=== PATIENT | female | born 1950 | race Caucasian/White ===

== ENCOUNTER 2017-03-31 10:27 | Emergency (ER) | payer MEDICARE, OTHER ==
--- NOTE | 2017-03-31 10:46 | ED Physician Documentation ---
PD HPI LOWER EXT INJURY - Stated complaint Stated Complaint: L KNEE INJURY - Chief complaint Chief Complaint: Ext Problem - History obtained from History obtained from: Patient - History of Present Illness PD HPI LOW EXT INJURY LOCATION: Left, Knee Type of injury: Fall (she says she tripped and fell onto knee with large swelling developed.) Timing - onset: Yesterday Timing - details: Gradual onset (the degree of swelling developed overnight), Still present Improved by: Rest Worsened by: Moving, Palpating, Other (straightening her leg) Associated symptoms: Swelling. No: Weakness, Numbness Similar symptoms before: Has not had sx before Recently seen: Not recently seen Review of Systems Skin: denies: Abrasion (s), Laceration (s) Neurologic: denies: Focal weakness, Numbness PD PAST MEDICAL HISTORY - Past Medical History Past Medical History: Yes Respiratory: COPD Endocrine/Autoimmune: Type 2 diabetes Musculoskeletal: Fibromyalgia Other Past Medical History: Pancreatic CA with Mets. 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 HEENT: Cataracts - Present Medications Home Medications: Ambulatory Orders Medication Instructions Recorded Confirmed Albuterol Sulf [Ventolin Hfa 1 - 2 puffs INH Q4HR PRN 03/31/17 03/31/17 Inhaler] Albuterol Sulfate [Proair Hfa 1 - 2 puffs INH Q4H PRN 03/31/17 03/31/17 Inhaler] Celecoxib 200 mg PO 03/31/17 Citalopram Hydrobromide 03/31/17 [Citalopram HBr] Clonazepam 2 mg PO 03/31/17 Insulin Degludec [Tresiba 35 unit SQ 03/31/17 Flextouch U-100] Insulin Lispro [HumaLOG] 100 unit SUBQ 03/31/17 03/31/17 Levothyroxine [Synthroid] 125 mcg PO QDAC 03/31/17 03/31/17 Oxybutynin [Ditropan] 5 mg PO TID 03/31/17 03/31/17 Rivaroxaban [Xarelto] 20 mg PO DAILY 03/31/17 03/31/17 Zolpidem [Ambien] 5 mg PO DAILY PRN 03/31/17 03/31/17 metFORMIN [Glucophage] 1,000 mg PO BIDWM 03/31/17 03/31/17 oxyCODONE [Roxicodone] 5 mg PO Q4-6H 03/31/17 03/31/17 oxyCODONE [Roxicodone] 5 mg PO Q4-6H #25 tablet 03/31/17 - Allergies Allergies/Adverse Reactions: Allergies Allergy/AdvReac Type Severity Reaction Status Date / Time Sulfa (Sulfonamide Allergy Unknown Verified 03/31/17 10:48 Antibiotics) - Social History Does the pt smoke?: No Smoking Status: Never smoker Does the pt drink ETOH?: No Does the pt have substance abuse?: No PD ED PE NORMAL - Vitals Vital signs reviewed: Yes - General General: Alert and oriented X 3, No acute distress, Well developed/nourished - Derm Derm: Normal color, Warm and dry - Extremities Extremities: No calf tenderness / cord, Other (left knee with tense swelling prepatellar area and feels like some in joint as well with purple color c/w hematoma. ). No: Normal ROM s pain - Neuro Neuro: No motor deficit, No sensory deficit Results - Vitals Vitals: Oxygen O2 Source Room air - Rads (name of study) left knee Radiology: Prelim report reviewed (no fractures, large prepatellar fluid) PD MEDICAL DECISION MAKING - ED course Complexity details: considered differential (large hematoma in bursa/joint with pain on ROM. Discussed typical course of not draining now but could potentially in a week or so if not decreased once risk of persistent bleeding is less. ), d/ w patient Departure - Departure Disposition: 01 Home, Self Care Clinical Impression: Knee hemarthrosis, left Accidental fall Qualifiers: Encounter type: initial encounter Qualified Code(s): W19.XXXA - Unspecified fall, initial encounter Knee contusion Qualifiers: Encounter type: initial encounter Laterality: left Qualified Code(s): S80.02XA - Contusion of left knee, initial encounter Condition: Stable Record reviewed to determine appropriate education?: Yes Instructions: ED Effusion Knee Follow-Up: [facility] [Provider Group] Prescriptions: oxyCODONE [Roxicodone] 5 mg PO Q4-6H #25 tablet Comments: Pollo wrap and some warm towels to the knee periodically to help absorb the blood in the joint. Activity as able. Use cane or walker to support your gait. Continue usual pain medications as needed. Follow-up with your primary care or with orthopedics if the swelling has not decreased significantly over the next 4 -5 days. Discharge Date/Time: 03/31/17 12:51
[2017-03-31] MEDS ORDERED: oxyCODONE 5 MG TABLET PO STA (11:04)
[2017-03-31] MEDS ORDERED: oxyCODONE 5 MG TABLET ONE (11:12)
[2017-03-31 12:35] VITALS: BP 135/72
--- NOTE | 2017-03-31 12:35 | XRAY Preliminary Report ---
Exam: XR KNEE 3 VIEW LT IMPRESSION: 1. Prepatellar soft tissue swelling or possibly hematoma. 2. The bones appear intact. [facility] SITE ID: [id number]
--- NOTE | 2017-03-31 12:37 | XRAY Report ---
EXAM: LEFT KNEE RADIOGRAPHY EXAM DATE: 03/31/2017 11:55 AM. CLINICAL HISTORY: Fell onto knee last night. COMPARISON: None. TECHNIQUE: 3 views. FINDINGS: Bones: Normal. No fractures or bone lesions. Joints: Normal. No effusion. No subluxations. Soft Tissues: There is prepatellar soft tissue swelling. IMPRESSION: 1. Prepatellar soft tissue swelling or possibly hematoma. 2. The bones appear intact. [facility] Referring Provider Line: [phone] SITE ID: [id number]
== END 2017-03-31 12:51 | disposition home or self-care (01) ==
LOC: ED 10:27
DX: S80.02XA Contusion of left knee, initial encounter (principal); S89.82XA Other specified injuries of left lower leg, initial encounter; W01.0XXA Fall on same level from slipping, tripping and stumbling without subsequent striking against object, initial encounter; J44.9 Chronic obstructive pulmonary disease, unspecified; E11.9 Type 2 diabetes mellitus without complications; Z79.4 Long term (current) use of insulin; M79.7 Fibromyalgia; Z85.07 Personal history of malignant neoplasm of pancreas; Z86.718 Personal history of other venous thrombosis and embolism; Z79.01 Long term (current) use of anticoagulants
CPT/HCPCS: 73562; 99283; A9270

== ENCOUNTER 2017-04-13 09:01 | Outpatient (CLI) | payer MEDICARE, OTHER ==
--- NOTE | 2017-04-13 19:55 | CONSULTATION NOTE ---
Palliative Care Consultation - Referral Referring Provider: Dr. 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 She was originally diagnosed in 12-27-2016 with a confirmed biopsy of the liver. She has had 4 cycles of palliative chemotherapy with gemcitabine and on Abraxane. She has had resulting in hospitalizations for cytopenias and neutropenic infection. She and her sister, Sneha, have relocated here from [place], this is been very stressful and concerning. Patient has continued to have weight loss, alteration in her mental status which she attributes "to chemo brain" though I suspect we need to explore this further, she has had changes in her equilibrium with frequent falls, and an ED visit for a fall and a trauma injury to her left knee. I find her today very anxious, she had had a very bad night she was very anxious about her pending visit, she had been increasingly confused per her sister wanting to leave in the middle the night, today she presents oriented 3 though has short-term memory issues. They do have many financial stressors and feeling overwhelmed by this transition. She has had increased incontinence and unable to control her bladder more so in the last 24-48 hrs. And though recognizes the seriousness of her illness, is quite concerned about her continued decline and facing her mortality. Medical/Surgical History - Past Medical History Cardiovascular: reports: Hypertension, Other (hx DVT on xarelto) Respiratory: reports: Asthma, COPD Neuro: reports: Peripheral neuropathy, Tremors, Other Endocrine/Autoimmune: reports: Type 2 diabetes GI: reports: None. 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 In the context of patient's decline, needing increased support, they decided to have her relocate as well. They have made arrangements for her to have a small room, original plan was she would live independently with sisters support. So far patient has had needed oversight and supervision particularly related to her falls and on altered mental status. Family History - Family History Family History: Mother: , [place], Father: , Cancer Medications/Allergies - Medications Home Medications: Ambulatory Orders Medication Instructions Recorded Confirmed Celecoxib 200 mg PO DAILY 03/31/17 04/16/17 Citalopram Hydrobromide 40 mg PO DAILY 03/31/17 04/16/17 [Citalopram HBr] Insulin Degludec [Tresiba 35 unit SQ DAILY 03/31/17 04/16/17 Flextouch U-100] Insulin Lispro [HumaLOG] 100 unit SUBQ PRN PRN 03/31/17 04/16/17 Levothyroxine [Synthroid] 125 mcg PO QDAC 03/31/17 04/16/17 Rivaroxaban [Xarelto] 20 mg PO DAILY 03/31/17 04/16/17 Zolpidem [Ambien] 5 mg PO DAILY PRN 03/31/17 04/16/17 clonazePAM [Clonazepam] 1 mg PO BID 03/31/17 04/16/17 metFORMIN [Glucophage] 1,000 mg PO BIDWM 03/31/17 04/16/17 Albuterol Sulfate [Proair Hfa 1 - 2 puffs INH PRN PRN 04/09/17 04/16/17 Inhaler] Multivitamin [Multiple Vitamins] 1 tab PO DAILY 04/09/17 04/16/17 Ondansetron [Zofran Odt] 8 mg PO TID PRN 04/16/17 04/16/17 oxyCODONE [Roxicodone] 5 mg PO Q3HR PRN 04/16/17 04/16/17 - Allergies Allergies/Adverse Reactions: Allergies Allergy/AdvReac Type Severity Reaction Status Date / Time Sulfa (Sulfonamide Allergy Unknown Verified 04/16/17 10:41 Antibiotics) Review of Systems - Constitutional Constitutional: reports: Fatigue, Weakness - Eyes Eyes: reports: Vision loss - Ears, Nose & Throat Ears, Nose & Throat: reports: Hearing loss, Postnasal drainage, Dry mouth - Cardiovascular Cardiovascular: reports: Lightheadedness, Decr. exercise tolerance - Respiratory Respiratory: reports: SOB at rest, SOB with exertion - Gastrointestinal Gastrointestinal: reports: Constipation, Nausea, Poor appetite, Early satiety, Other (they are eating out as do not have a way for meal prep; very costly and not nutritious) - Genitourinary Genitourinary: reports: Frequency, Incontinence (increased over last 24 hours, confusion included.) - Musculoskeletal Musculoskeletal: reports: Stiffness, Muscle weakness, Joint swelling (left knee with hematoma from fall) - Integumentary Integumentary: reports: Dryness, Hair changes (alopecia) - Neurological Neurological: reports: General weakness, Dizziness, Memory problems, Abnormal gait, Slurred speech, Other (tremors) - Psychiatric Psychiatric: reports: Depression, Anxiety - Endocrine Endocrine: reports: Diabetes type 2, Hypothyroidism, Intolerance to cold ( finding northwest weather difficult to tolerate) - Hematologic/Lymphatic Hematologic/Lymphatic: reports: Blood clots, Recurrent infections (has been hospitalized several times in [place]) - All Other Systems All Other Systems: reports: Reviewed and negative Physical Exam - Vital Signs Pulse Rate: 82 Respiratory Rate: 18 O2 Saturation: 99 (ra @ rest) Blood Pressure: 126/67 - Physical Exam General Appearance: positive: Mild distress, Anxious Eyes Bilateral: positive: Conjunctivae nml, No scleral icterus ENT: positive: Dry mucous membranes. negative: Oral lesions Neck: positive: No JVD, Trachea midline. negative: Lymphadenopathy (R), Lymphadenopathy (L) Cardiovascular: positive: Regular rate & rhythm Respiratory: positive: Diminished throughout. negative: Wheezes, Rales Abdomen: positive: Soft, Nml bowel sounds Skin: positive: Pallor, Dryness, Wound (left forearm skin tear, shallow no s/s of infection; l) Extremities: positive: Joint swelling (left knee with large hematoma/swelling tender not red or inflammed at this time able to bear weight has not worsened) Neurologic/Psychiatric: positive: Oriented x3 (though with STM issues), Depressed mood/affect, Other (very anxious) Palliative Care - POLST Patient has POLST: Yes POLST Status: DNR, Limited Interventions Pain: Pain worsening, Location (residual pain from fall on left knee; baseline pain and discomfort from peripheral neuropathy; pain from pancreatic cancer "like a hole" radiates round back and up ;left side; oxycodone 1-2 tabs a day does help when takes it but afraid of "pain meds") Tiredness/Fatigue: Moderate (4-6) Drowsiness/Sedation: Mild (1-3) Nausea: Mild (1-3) Depression: Moderate (4-6) Anxiety: Moderate (4-6) Anorexia: Mild (1-3) Sleep: Sleeps poorly Constipation: Yes, Intermittent constipation Feelings of wellbeing/Perceived Quality of Life: Poor, Worsening Performance Status: She has noted increase in lower extremity weakness, concerned about equilibrium in the last 3-4 weeks, this is like to several falls. She has been titrating back her clonazepam, is off her gabapentin, and no further alprazolam. When turns to the right or to the left quickly she does lose balance, she is unable to stand on one leg, she closes her eyes she does have some sway. She can ambulate short distances but is limited by fatigue at this point in time. She has difficulty navigating steps. I would put her at a palliative care performance status at 60%. - Palliative Care Discussion: In reviewing patient's decline and experience with her pancreatic cancer over the last several months, she is feeling quite overwhelmed. She does understand this is a life limiting illness but is hopeful for improved quality as well as some quantity of life. They do have a mother who was on a ventilator for extended period of time, thus very anxious to make sure they have their directives in place for Fatimah. We did complete the POLST with her goals for focus on quality of life treating reversible conditions and end-of-life a comfortable respectful . She selected DNAR/Limited Intervention; Antibiotics if life could be prolonged; and no medical nutrition. Am concerned about a long-term plan regarding this at that point in time. She has designated her sister Cheli Hlom [phone] as her DURABLE POWER OF SHOE PARTS CASER for medical decision-making. I did provide the form for her to complete , will have a notary at 1 of her next visits help complete (she has 4 other brothers all estranged; 5 total as one has passed). Her sister is overwhelmed as far as concern regarding patient's independence, lack of insight at times of her limitations, and her continued wished to drive. I did beauty counselor that for at least the next 2 weeks until we come to some understanding of her cognitive issues she is not to drive. It does sound quite complicated as far as her medication regimen on changes over the last several months. Her sister is overseeing this at this point in time, they cannot identify any other resources given the recent relocation. Results - Lab Results Lab results reviewed: Yes Impression and Recommendations - Palliative Care Impression: This is a 67-year-old woman with pancreatic cancer with metastatic disease to lymph nodes, liver, lung. She does present with altered mental status and cognitive changes, that are impacting her safety and ability to be independent. She has had increased incontinence last 24-48 hours, will follow up and rule out infection. She is quite anxious regarding her serious illness and concerned about her impending decline, her current social situation also adds to both financial stressors and psychological distress as well. Recommendations/Counseling Done: 1. Incontinence, did have patient provide UA. Initial results were positive did start her on nitrofurantoin 100 mg extended release twice daily pending C&S results. 2. Pain of neoplastic origin. Patient does have 4 out of 10 pain with severe discomfort has been hesitant to use oxycodone for relief. Counseling done regarding use of opioids, safety and storage, encouraged to use more often particularly when escalating up to 5-6/10. Number 3. Cognitive deficits, did do a MMSE scored 26/30. It has been fluctuating up and down, with episodes of short-term memory issues, confusion, and paranoia. Her original staging exam did have suspicion for possible metastatic disease, and follow-up head ruled out. But with increasing neuro deficits, equilibrium changes, fluctuating mental alertness am concerned may need follow-up. She has also had multiple falls and on blood thinner. 4. Anxiety. She has been titrated down off her benzodiazepines, she is currently at clonazepam 1 mg twice daily. She does have underlying anxiety disorder, she has not noticed any increased distress related to this most of her distress is "existential" regarding her impending decline. She is anxious to understand what to expect in the near future, given the length of our current visit will need to revisit this later. But did discuss some about this and her wishes for the POLST. Will also have Medical Palliative Care [place] address some of the financial issues, will need [employer] application and plan for housing. 5. Advanced care planning. She does want her sister Cheli Holm to be her DPOA for health care. We did discuss the continuum of care given the seriousness of her illness, including at some point hospice support. She does want to stay here in [place], there are no other family members or support she would want to return back to [place] 4. We did complete the POLST, and provided anticipatory guidance in the context of this. We will continue this conversation our next visit. Time Spent: 75 minutes with greater than 50% of this done in counseling regarding pain and symptom management anticipatory guidance advanced care planning and coordination of care with obtaining UA specimen. Refills were provided for Xarelto, oxycodone, and prescription for antiemetic ondansetron.
== END 2017-04-13 09:02 | disposition home or self-care (01) ==
LOC: PC 09:01
PROVIDERS: ATTEND Nurse Practitioner Adult Health
DX: Z51.5 Encounter for palliative care (principal); R32 Unspecified urinary incontinence; G89.3 Neoplasm related pain (acute) (chronic); R41.89 Other symptoms and signs involving cognitive functions and awareness; R41.82 Altered mental status, unspecified; F41.9 Anxiety disorder, unspecified; C25.9 Malignant neoplasm of pancreas, unspecified; C77.9 Secondary and unspecified malignant neoplasm of lymph node, unspecified; C78.7 Secondary malignant neoplasm of liver and intrahepatic bile duct; C78.00 Secondary malignant neoplasm of unspecified lung; Z91.81 History of falling; Z63.79 Other stressful life events affecting family and household; I10 Essential (primary) hypertension; Z86.718 Personal history of other venous thrombosis and embolism; Z79.01 Long term (current) use of anticoagulants; E11.42 Type 2 diabetes mellitus with diabetic polyneuropathy; Z87.891 Personal history of nicotine dependence; Z79.4 Long term (current) use of insulin; Z79.84 Long term (current) use of oral hypoglycemic drugs; S80.02XD Contusion of left knee, subsequent encounter; S51.812D Laceration without foreign body of left forearm, subsequent encounter; Z66 Do not resuscitate; Z79.891 Long term (current) use of opiate analgesic; Z79.899 Other long term (current) drug therapy
CPT/HCPCS: 99205

== ENCOUNTER 2017-04-16 10:44 | Outpatient (CLI) | payer MEDICARE, OTHER ==
--- NOTE | 2017-04-16 19:50 | CONSULTATION NOTE ---
Palliative Care Follow Up - Referral Referring Provider: Dr. Truong Time of Visit: 1045-11:15 Referral setting: [facility] Referral Reason: Pain of neoplastic origin - Information Sources Records reviewed: Previous records reviewed History/Review of Systems obtained from: Patient, Family (sister Sneha) Exam limitations: Clinical condition (patient sent to ED from [facility]/follow up done as awaited appointment with ED MD) - History of Present Illness Update Brief HPI Update: Please see 04-13-2017 HPI for more complete history.Patient had fluctuating status again over the weekend, with increased weakness and a recurrent fall. She does report, confirmed by her sister, she did have another fall but actually hit the back of her head. Her sister states she refused to come up for ED evaluation. She has had intermittent headaches, in addition to her baseline confusion. She did try the nitrofurantoin, without any improvement in her incontinence, her final C&S came back with less than 10,000 colonies. She has not noticed any improvement in symptoms. She ended up over in the ED for evaluation of her left knee swelling. On exam does not appear to have changed from Sunday, it is tender but able to weight-bear, no redness or warmth noted. She is concerned though and would like it ruled out as far as any further intervention. Other significant change has been she has received notice she is not allowing her to be able to stay in her current living situation, this is added yet more stressors to an already difficult situation. She reports her pain has continued and her left upper quadrant again she describes it as a "hole " she has increased her use of oxycodone to about 2-3 per day. She is complaining of some constipation, and is unable to identify any bowel program. Social History - Living Situation Living arrangement: Other (rented B & B room, now to be evicted 05/11. Both she and her sister will need to find housing, Sneha does have friend if needed but prefers to find place.) Medications/Allergies - Medications Home Medications: Ambulatory Orders Medication Instructions Recorded Confirmed Celecoxib 200 mg PO DAILY 03/31/17 04/16/17 Citalopram Hydrobromide 40 mg PO DAILY 03/31/17 04/16/17 [Citalopram HBr] Insulin Degludec [Tresiba 35 unit SQ DAILY 03/31/17 04/16/17 Flextouch U-100] Insulin Lispro [HumaLOG] 100 unit SUBQ PRN PRN 03/31/17 04/16/17 Levothyroxine [Synthroid] 125 mcg PO QDAC 03/31/17 04/16/17 Rivaroxaban [Xarelto] 20 mg PO DAILY 03/31/17 04/16/17 Zolpidem [Ambien] 5 mg PO DAILY PRN 03/31/17 04/16/17 clonazePAM [Clonazepam] 1 mg PO BID 03/31/17 04/16/17 metFORMIN [Glucophage] 1,000 mg PO BIDWM 03/31/17 04/16/17 Albuterol Sulfate [Proair Hfa 1 - 2 puffs INH PRN PRN 04/09/17 04/16/17 Inhaler] Multivitamin [Multiple Vitamins] 1 tab PO DAILY 04/09/17 04/16/17 Amox/Clav 875/125 [Augmentin] 1 each PO Q12H #20 tablet 04/16/17 Ondansetron [Zofran Odt] 8 mg PO TID PRN 04/16/17 04/16/17 oxyCODONE [Roxicodone] 5 mg PO Q3HR PRN 04/16/17 04/16/17 - Allergies Allergies/Adverse Reactions: Allergies Allergy/AdvReac Type Severity Reaction Status Date / Time Sulfa (Sulfonamide Allergy Unknown Verified 04/16/17 10:41 Antibiotics) Review of Systems - Constitutional Constitutional: reports: Fatigue, Poor appetite, Weight loss - Eyes Eyes: reports: Vision loss - Ears, Nose & Throat Ears, Nose & Throat: reports: Vertigo, Dry mouth - Cardiovascular Cardiovascular: reports: Lightheadedness, Exertional dyspnea, Decr. exercise tolerance - Respiratory Respiratory: reports: SOB with exertion. denies: Cough - Gastrointestinal Gastrointestinal: reports: Constipation - Genitourinary Genitourinary: reports: Incontinence - Musculoskeletal Musculoskeletal: reports: Muscle pain, Muscle aches, Stiffness, Limited range of motion (left knee with hematoma), Muscle weakness, Joint swelling (left knee) , Assistive devices (using cane, has been advised to use walker) - Integumentary Integumentary: reports: Dryness, Hair changes (alopecia) - Neurological Neurological: reports: Headache, Dizziness, Memory problems, Incoordination - Psychiatric Psychiatric: reports: Depression, Anxiety - Endocrine Endocrine: reports: Diabetes type 2 - Hematologic/Lymphatic Hematologic/Lymphatic: reports: Anemia, Blood clots, Recurrent infections - All Other Systems All Other Systems: reports: Reviewed and negative Physical Exam - Physical Exam General Appearance: positive: Mild distress, Anxious Eyes Bilateral: positive: Conjunctivae nml ENT: positive: Dry mucous membranes Neck: positive: Trachea midline Cardiovascular: positive: Regular rate & rhythm Respiratory: positive: No respiratory distress Abdomen: positive: Soft Skin: positive: Pallor, Dryness, Other (dressing in place on right forearm) Extremities: positive: No pedal edema Neurologic/Psychiatric: positive: Disoriented to time, Weakness, Depressed mood/ affect Palliative Care - POLST Patient has POLST: Yes POLST Status: DNR, Limited Interventions Pain: Pain worsening, Location (left upper quadrant radiating to back and up side; using intermittent oxycodone) Tiredness/Fatigue: Severe (7-10) Drowsiness/Sedation: Mild (1-3) Nausea: Mild (1-3) Depression: Moderate (4-6) Anxiety: Severe (7-10) Dyspnea: Mild (1-3) Anorexia: Severe (7-10) (still not eating well; about 4 glasses fluid a day; no appetite) Sleep: Variable sleep pattern Constipation: Opoid induced, Unmanaged Feelings of wellbeing/Perceived Quality of Life: Poor, Worsening Performance Status: Patient presents with yet another fall including head injury. She does report some of this is a change in equilibrium, some dizziness, and unable to get her periods. She also has peripheral neuropathy so has baseline balance issues.She has spent most of her time sleeping though she did attempt to go to yazdanism on this weekend which she enjoyed but fatigued rapidly. It has been complicated to find a balance between decreasing her isolation and her activity intolerance - Palliative Care Discussion: Patient remains quite tearful and distressed. It was not a very conducive setting in the ED did speak about him her concerns about dying. Now with increased financial stressors, concerned about homelessness, and still feeling quite poorly she is concerned about finding quality and meaning in her current day-to-day existence. Lucian Rubioy will have the medical palliative care social security specialist contact her as soon as possible to begin some long-term planning. Impression and Recommendations - Palliative Care Impression: This is a 67-year-old woman with continued sequela related to her pancreatic cancer stage IV, liver, and lung metastases. She also has multiple lymph nodes involved. Her cognitive status remains unchanged, despite initiation of treatment of a presumed UTI which now shows negative. She also continues to experience high symptom burden of pain, fatigue, anxiety, depression, and anorexia. Recommendations/Counseling Done: 1. Anorexia. Sister is quite overwhelmed, limited set up for good nutritional support. Patient declines most offers and interventions of attempting to address her malnutrition. We did discuss given her current situation, lack of appetite, to consider using supplements. I did give him a prescription for the [facility] to get a case of Ensure at costs, as well some coupons. I did encourage her if she is not going to eat to at least supplement with nutritional supplements until more stable situation identified. 2. Constipation. Patient does have some MiraLAX, they have not used it since here in [place]. Did review use instructed to start with 17 g daily and titrate as needed. Counseling regarded impact of constipation on feelings of well-being, and anorexia, and a side effect of opioids. 3. Ground-level fall. Did follow up with ED physician regarding my concerns with her continued altered mental status but also with her head injury being on Xarelto. She will include that in her exam and follow-up. Number 4. Pain of neoplastic origin. Requested the keep track of her intermittent oxycodone use, would most likely benefit from sustained release medication but given her cognitive concerns will await until this is resolved. Did encourage her to use it more frequently for her identified worsening pain. 5. Advanced care planning POLST completed reviewed with ED physician. Patient will need long-term plan for housing and support as well as end-of-life planning. Referral made to medical palliative care social security specialist for follow- up. Unfortunately did not have much time to follow-up on patient's identified concerns which were requests for anticipatory guidance regarding her end-of- life anxieties. Will try and see later this week in the clinic. 6. Cognitive decline. And patient with multiple vague neurologic and altered mental status symptoms. Including but not limited to intermittent short-term memory issues, equilibrium problems, visual changes, and headache. Consult with oncologist regarding need for further exam, ED doc felt like she would not be able to do appropriate MRI but is concerned given patient's recent fall and head injury. Will at least get baseline CT scan for today. Time Spent: 30 minutes with greater than 50% of this done in counseling regarding symptoms of pain anxiety depression and constipation coordination of care follow-up with ED and clinic regarding ongoing cognitive changes and referral to medical palliative care social security specialist
== END 2017-04-16 10:45 | disposition home or self-care (01) ==
LOC: PC 10:44
PROVIDERS: ATTEND Nurse Practitioner Adult Health
DX: Z51.5 Encounter for palliative care (principal); E46 Unspecified protein-calorie malnutrition; K59.03 Drug induced constipation; T40.2X5A Adverse effect of other opioids, initial encounter; S09.90XA Unspecified injury of head, initial encounter; W18.30XA Fall on same level, unspecified, initial encounter; G89.3 Neoplasm related pain (acute) (chronic); R41.3 Other amnesia; R51 Headache; H53.9 Unspecified visual disturbance; R41.89 Other symptoms and signs involving cognitive functions and awareness; R29.6 Repeated falls; Z91.81 History of falling; R41.0 Disorientation, unspecified; R32 Unspecified urinary incontinence; Z79.891 Long term (current) use of opiate analgesic; Z63.79 Other stressful life events affecting family and household; Z79.4 Long term (current) use of insulin; Z79.84 Long term (current) use of oral hypoglycemic drugs; Z79.01 Long term (current) use of anticoagulants; S80.02XD Contusion of left knee, subsequent encounter; Z66 Do not resuscitate; E11.42 Type 2 diabetes mellitus with diabetic polyneuropathy; F32.9 Major depressive disorder, single episode, unspecified; F41.9 Anxiety disorder, unspecified; C25.9 Malignant neoplasm of pancreas, unspecified; C78.7 Secondary malignant neoplasm of liver and intrahepatic bile duct; C78.00 Secondary malignant neoplasm of unspecified lung; C77.9 Secondary and unspecified malignant neoplasm of lymph node, unspecified
CPT/HCPCS: 99214

== ENCOUNTER 2017-04-19 08:46 | Inpatient (IN) | payer MEDICARE, OTHER ==
--- NOTE | 2017-04-19 09:48 | ED Physician Documentation ---
PD HPI ALTERED MENTAL STATUS - Stated complaint Stated Complaint: ALOC - Chief complaint Chief Complaint: Neuro - History obtained from History obtained from: Patient, Family (sister) - History of Present Illness Timing - onset: How many days ago (Progressively worse over the past two days.) Timing - details: Gradual onset Quality / character: Confused Associated symptoms: General weakness Contributing factors: Anticoagulated, Diabetic, Cancer, COPD Basline status: Ambulatory, Confused Similar symptoms before: Treatment (Head and neck CT three days ago---no acute findings.) Recently seen: Emergency Dept (Three days ago after fall.) - Additional information Additional information: The patient is a 67-year-old female with history of stage IV pancreatic cancer with metastases who presents with progressive weakness and altered mental status , worsening over the past 2 days. Much of the history is obtained from the patient's sister. Recently she has been falling, and 3 days ago was evaluated in the emergency department after a fall. CT scan of the head and cervical spine were negative for acute injury. She was prescribed Augmentin at that time for sinusitis. Examples of her mental status confusion include trying to put her pants on over her head this morning, and then trying to tie her pant legs instead of her shoelaces. Her pancreatic cancer was diagnosed four or 5 months ago while living in [place]. She has been undergoing chemotherapy, and her last chemotherapy was administered 2 days ago. Since arriving in [place] she has been seeing Dr. Truong for oncology. She is scheduled for her first primary care appointment on May [address] Obregon. Her past medical history is also significant for DVT for which she is on Xarelto. She has history of COPD and insulin-dependent diabetes. She has recently filled out DNR paperwork and is on palliative care with Lauren Townsend. On further review of systems she denies headache, chest pain, or vomiting. She reports chills, cough, and nausea, . Sister reports that she has had urinary incontinence for the past 2 days. Review of Systems Constitutional: reports: Chills Ears: denies: Tinnitus/ringing Nose: denies: Congestion Throat: denies: Sore throat Cardiac: denies: Chest pain / pressure, Palpitations Respiratory: reports: Cough. denies: Dyspnea GI: reports: Abdominal Pain, Nausea. denies: Vomiting : reports: Incontinent. denies: Dysuria Skin: denies: Rash Musculoskeletal: reports: Back pain (midback). denies: Neck pain Neurologic: reports: Generalized weakness, Confused. 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 HEENT: Cataracts - Present Medications Home Medications: Ambulatory Orders Medication Instructions Recorded Confirmed Rivaroxaban [Xarelto] 20 mg PO DAILY@1700 03/31/17 04/19/17 Zolpidem [Ambien] 5 mg PO QPM PRN 03/31/17 04/19/17 metFORMIN [Glucophage] 1,000 mg PO BIDWM 03/31/17 04/19/17 oxyCODONE [Roxicodone] 5 mg PO Q4H PRN 04/16/17 04/19/17 Celecoxib [CeleBREX] 200 mg PO DAILY@1700 04/19/17 04/19/17 Citalopram [CeleXA] 40 mg PO DAILY 04/19/17 04/19/17 Insulin Aspart [Novolog Flexpen] 2 - 9 units SUBQ DAILY 04/19/17 04/19/17 Insulin Degludec [Tresiba 45 units SUBQ DAILY 04/19/17 04/19/17 Flextouch U-100] Levothyroxine Sodium 125 mcg PO QDAC 04/19/17 04/19/17 Prochlorperazine [Compazine] 10 mg PO Q6H PRN 04/19/17 04/19/17 clonazePAM [Clonazepam] 1 mg PO BID 04/19/17 04/19/17 - Allergies Allergies/Adverse Reactions: Allergies Allergy/AdvReac Type Severity Reaction Status Date / Time Sulfa (Sulfonamide Allergy Unknown Verified 04/16/17 10:41 Antibiotics) - Social History Does the pt smoke?: No Smoking Status: Never smoker Does the pt drink ETOH?: No Does the pt have substance abuse?: No - Immunizations Immunizations are current?: Yes - POLST Patient has POLST: No PD ED PE NORMAL - Vitals Vital signs reviewed: Yes (mildly tachycardic) - General General: Other (Alert, but confused. Alopecia.) - HEENT HEENT: Atraumatic, EOMI, Moist mucous membranes, Pharynx benign - Neck Neck: Supple, no meningeal sign, No bony TTP, No adenopathy, No JVD - Cardiac Cardiac: No murmur, Other (Slightly rapid rate, regular rhythm.) - Respiratory Respiratory: No respiratory distress, Clear bilaterally - Abdomen Abdomen: Normal bowel sounds, Soft, Other (Mild upper abdominal tenderness, without rebound or guarding.) - Back Back: No CVA TTP, No spinal TTP - Derm Derm: No rash - Extremities Extremities: Other (Old appearing ecchymosis left knee anterior aspect. Full range of motion of the knee, without ligamentous laxity.) - Neuro Neuro: No motor deficit, No sensory deficit, Other (Alert oriented to person and place, but not to date. Confused with regard to thoughts, with great difficulty finishing most sentences. She does however come up with some sophisticated words, such as, "I lived a bucolic life" in [place].) Results - Vitals Vitals: Vital Signs - 24 hr 04/19/17 04/19/17 04/19/17 08:53 09:51 10:38 Temperature 36.8 C 36.9 C 36.9 C Heart Rate 104 H 96 95 Respiratory 16 18 16 Rate Blood Pressure 133/58 H 113/52 L 110/48 L O2 Saturation 96 96 96 04/19/17 11:37 Temperature 36.9 C Heart Rate 97 Respiratory 14 Rate Blood Pressure 128/60 O2 Saturation 98 Oxygen O2 Source Room air - EKG (time done) 09:01 Rate: Rate (enter#) (100) Rhythm: Sinus tachycardia, LAE [place]: Normal Intervals: Prolonged SD QRS: Normal Ischemia: Other (Baseline tremor.) Computer interpretation: Agree with computer - Labs Labs: Laboratory Tests 04/19/17 04/19/17 04/19/17 09:45 10:00 10:00 WBC 11.2 H RBC 2.76 L Hgb 9.0 L Hct 26.8 L MCV 97.3 MCH 32.6 H MCHC 33.6 RDW 15.2 H Plt Count 70 L MPV 8.2 Neut # Not Reportable Lymph # Not Reportable [place] # Not Reportable Eos # Not Reportable Baso # Not Reportable Absolute Nucleated RBC Not Reportable Total Counted 100 Band Neuts % (Manual) 5 Nucleated RBC % Not Reportable Neutrophils # (Manual) 11.1 H Monocytes # (Manual) 0.1 Differential Comment MANUAL DIFFERENTIAL WBC Morphology 1+ TOXIC GRANULATION Sodium 128 L Potassium 3.6 Chloride 93 L Carbon Dioxide 23 Anion Gap 12.0 BUN 16 Creatinine 1.1 H Estimated GFR (MDRD) 50 L Glucose 423 H Lactic Acid Calcium 8.6 Total Bilirubin 1.2 H AST 49 H ALT 28 Alkaline Phosphatase 160 H Total Protein 7.2 Albumin 3.3 Globulin 3.9 Albumin/Globulin Ratio 0.8 L Lipase 29 Urine Color YELLOW Urine Clarity HAZY Urine pH 6.0 Ur Specific [place] 1.020 Urine Protein 100 H Urine Glucose (UA) 250 H Urine Ketones NEGATIVE Urine Occult Blood LARGE H Urine Nitrite NEGATIVE Urine Bilirubin NEGATIVE Urine Urobilinogen 0.2 (NORMAL) Ur Leukocyte Esterase SMALL H Urine RBC TNTC H Urine WBC >25 H Urine WBC Clumps PRESENT Ur Squamous Epith Cells MANY Squamous H Urine Bacteria Many H Ur Microscopic Review INDICATED Urine Culture Comments NOT INDICATED Slides for Path Review Indicated 04/19/17 11:10 WBC RBC Hgb Hct MCV MCH MCHC RDW Plt Count MPV Neut # Lymph # [place] # Eos # Baso # Absolute Nucleated RBC Total Counted Band Neuts % (Manual) Nucleated RBC % Neutrophils # (Manual) Monocytes # (Manual) Differential Comment WBC Morphology Sodium Potassium Chloride Carbon Dioxide Anion Gap BUN Creatinine Estimated GFR (MDRD) Glucose Lactic Acid 1.3 Calcium Total Bilirubin AST ALT Alkaline Phosphatase Total Protein Albumin Globulin Albumin/Globulin Ratio Lipase Urine Color Urine Clarity Urine pH Ur Specific [place] Urine Protein Urine Glucose (UA) Urine Ketones Urine Occult Blood Urine Nitrite Urine Bilirubin Urine Urobilinogen Ur Leukocyte Esterase Urine RBC Urine WBC Urine WBC Clumps Ur Squamous Epith Cells Urine Bacteria Ur Microscopic Review Urine Culture Comments Slides for Path Review PD MEDICAL DECISION MAKING - ED course Complexity details: reviewed old records, reviewed results, re-evaluated patient , considered differential, d/w patient, d/w family, d/w solutions delivery consultant ED course: Patient's presentation is significant for acute urinary tract infection with altered mental status with confusion. Sepsis is a consideration. Her lactate level is normal, and blood cultures, as well as urine culture, are pending. She recently underwent chemotherapy for pancreatic cancer. CBC today reveals anemia with a hemoglobin of 9.0 and hematocrit 26.8. She has thrombocytopenia with a platelet count of 70,000. She has history of insulin-dependent diabetes and her blood sugar on presentation today is elevated at 423. Chemistry panel also reveals hyponatremia with a sodium of 128. Treatment in the emergency department included administration of normal saline 1 L IV, ceftriaxone 1 g IV, and regular insulin 10 units IV. I discussed her condition with the hospitalist, who admitted her for further evaluation and treatment. Departure - Departure Disposition: 67 [facility] DC/Xfer Clinical Impression: Confusion, Pancreatic cancer metastasized to liver, Type II diabetes mellitus, Anemia Urinary tract infection Qualifiers: Urinary tract infection type: acute cystitis Hematuria presence: with hematuria Qualified Code(s): N30.01 - Acute cystitis with hematuria Condition: Fair Discharge Date/Time: 04/19/17 13:02
[2017-04-19 09:56] LABS: BILIRUBIN,URINE NEGATIVE (NEGATIVE)
[2017-04-19 09:58] LABS: UA w/ MICROSCOPIC CHARGE YES
[2017-04-19 10:04] LABS: BASOPHILS % (AUTO) 0.2 %; HCT - HEMATOCRIT 26.8 % (37.0-47.0); LYMPHOCYTES % (AUTO) 3.4 %; MEAN CORPUSCULAR HEMOGLOBIN 32.6 pg (27.0-31.0); MEAN CORPUSCULAR HGB CONC 33.6 g/dL (32.0-36.0); MEAN CORPUSCULAR VOLUME 97.3 fL (81.0-99.0); MEAN PLATELET VOLUME 8.2 fL (7.9-10.8); MONOCYTES % (AUTO) 0.3 %; NEUTROPHILS % (AUTO) 96.1 %; RED BLOOD COUNT 2.76 10^6/uL (4.20-5.40); RED CELL DISTRIBUTION WIDTH 15.2 % (12.0-15.0); UNCORRECTED WHITE BLOOD COUNT 11.2 x10^3/uL; WHITE BLOOD COUNT 11.2 x10^3/uL (4.8-10.8)
[2017-04-19 10:17] LABS: ALBUMIN/GLOBULIN RATIO 0.8 (1.0-2.2); BILIRUBIN,TOTAL 1.2 mg/dL (0.2-1.0); CALCIUM 8.6 mg/dL (8.5-10.3); CREATININE 1.1 mg/dL (0.4-1.0); POTASSIUM 3.6 mmol/L (3.5-5.0); TOTAL PROTEIN 7.2 g/dL (6.7-8.2)
[2017-04-19 10:23] LABS: WBC,URINE >25 /HPF (0-5)
[2017-04-19 10:24] LABS: UR CULTURE IF IND NOT INDICATED
[2017-04-19 10:33] LABS: BAND NEUTROPHILS % (MANUAL) 5 %; NEUTROPHILS % (MANUAL) 94 %; NP AUTO DIFFERENTIAL? YES; NP MAN DIFFERENTIAL? NO; TOTAL CELLS COUNTED 100
[2017-04-19 10:36] LABS: SLIDE SENT FOR PATH REVIEW? Indicated
[2017-04-19 10:39] LABS: CBC SPECIMEN NUMBER 773551; PATHOLOGIST REVIEW ORDER PATH SLIDE REVIEW
[2017-04-19] MEDS ORDERED: cefTRIAXone 1 GM in SODIUM CHLORIDE 0.9% MINIBAG 100 ML IV STA (10:51)
[2017-04-19] MEDS ORDERED: SODIUM CHLORIDE 0.9% 1,000 ML IV ONE (10:52)
[2017-04-19] MEDS ORDERED: INSULIN REGULAR HUMAN 100 UNIT/1 ML 10 ML MDV IVP STA (11:08)
--- NOTE | 2017-04-19 11:42 | ED Physician Documentation ---
ED Addendum - Addendum Addendum: 04/19/17 11:41 unscheduled return visit - chart accessed for follow up and educational purposes
[2017-04-19] MEDS ORDERED: DEXTROSE 5%-0.9% NACL 1,000 ML IV SCH (12:00)
--- NOTE | 2017-04-19 13:30 | HISTORY & PHYSICAL EXAMINATION ---
History of Present Illness - Admitted From Admitted from: ED Referring Provider: OLGA Escoto Referral Reason: Acute illness - History Obtained From Records Reviewed: RN notes reviewed, Old records reviewed History obtained from: Patient, Family (Sister, Cheli) Exam limitations: Clinical condition - History of Present Illness Pain/Problem Location Description: Generalized, more acute pain in left knee. Bruised from knee to ankle. Severity at the worst: reports: Moderate Pain Quality: reports: Sharp, Aching Context-Pain started w/: reports: Movement, Position Timing: reports: Constant Improved with: reports: Rest, Home medication Worsened by: reports: Movement, Nothing Associated symptoms: reports: Shortness of air HPI Comment/Other: Fatimah Zamudio) is a 67-year-old female with history of metastatic pancreatic cancer-stage 4, DVTs, COPD, DM type-2 insulin dependent, who presents with progressive weakness and acute delerium, that has become worse for the past 2 days. According to sister, Cheli, patient has been falling, and on 04/16/17 was evaluated in the emergency department after a fall. CT scan of the head and cervical spine were negative for acute injury. She was prescribed Augmentin at that time for sinusitis. Cheli also notes that her sister has had such profound confusion and was found trying to put her pants on over her head this morning, and then trying to tie her pant legs instead of her shoelaces. Her pancreatic cancer was diagnosed while living in [place]. She has been undergoing chemotherapy, and her last chemotherapy was administered 2 days ago. Since arriving in [place] she has been seeing Dr. Truong in the [facility] clinic. She is scheduled for her first primary care appointment on May [address] Obregon to establish care. She denies headache, chest pain, N/V, dizziness when asked, but very unreliable due to inattentiveness. Per sisterCheli her sister has been complaining of chills , cough, and nausea, with urinary incontinence for the past 2 days. She has recently filled out DNR paperwork while in [facility] clinic and is on palliative care with Lauren Townsend. She will be admitted to the hospitalist service for further evaluation of acute delerium, possible pneumonia and palliative care planning with placement. 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 HEENT: positive: Cataracts Social & Family Hx - Living Situation Living Arrangement: At home Living Situation: With family - Social History Does the pt smoke?: No Smoking Status: Former smoker (40 year 1ppd.) Does the pt drink ETOH?: No Does the pt have substance abuse?: No - POLST Patient has POLST: No - Family History Family History: Mother: , Diabetes, Type 2, Father: , Diabetes, Type 2, Sister: Alive and Well, , Mental Illness, SC, Brother: , [place] Meds/Allgy - Home Medications Home Medications: Ambulatory Orders Medication Instructions Recorded Confirmed Rivaroxaban [Xarelto] 20 mg PO DAILY@1700 03/31/17 04/19/17 Zolpidem [Ambien] 5 mg PO QPM PRN 03/31/17 04/19/17 metFORMIN [Glucophage] 1,000 mg PO BIDWM 03/31/17 04/19/17 oxyCODONE [Roxicodone] 5 mg PO Q4H PRN 04/16/17 04/19/17 Celecoxib [CeleBREX] 200 mg PO DAILY@1700 04/19/17 04/19/17 Citalopram [CeleXA] 40 mg PO DAILY 04/19/17 04/19/17 Insulin Aspart [Novolog Flexpen] 2 - 9 units SUBQ DAILY 04/19/17 04/19/17 Insulin Degludec [Tresiba 45 units SUBQ DAILY 04/19/17 04/19/17 Flextouch U-100] Levothyroxine Sodium 125 mcg PO QDAC 04/19/17 04/19/17 Prochlorperazine [Compazine] 10 mg PO Q6H PRN 04/19/17 04/19/17 clonazePAM [Clonazepam] 1 mg PO BID 04/19/17 04/19/17 - Allergies Allergies/Adverse Reactions: Allergies Allergy/AdvReac Type Severity Reaction Status Date / Time Sulfa (Sulfonamide Allergy Unknown Verified 04/16/17 10:41 Antibiotics) Review of Systems - Constitutional Constitutional: reports: Malaise, Weakness - Ears, Nose & Throat Ears, Nose & Throat: reports: Dentures - Cardiovascular Cariovascular: reports: Syncope, Decr. exercise tolerance - Respiratory Respiratory: reports: Cough, Wheezing, Orthopnea, SOB at rest, SOB with exertion - Gastrointestinal Gastrointestinal: reports: Abdominal distention, Poor appetite - Genitourinary Genitourinary: reports: Dysuria, Frequency, Urgency, Incontinence - Musculoskeletal Musculoskeletal: reports: Muscle aches, Limited range of motion, Muscle weakness - Integumentary Integumentary: reports: Other (scattered bruising due to recent falls. LLE, LUE) - Neurological Neurological: reports: General weakness, Memory problems, Pre-existing deficit, Abnormal gait, Incoordination - Psychiatric Psychiatric: reports: Depression, Anxiety Exam - Vital Signs Reviewed Vital Signs: Yes - Physical Exam General Appearance: positive: Moderate distress, Anxious, Lethargic Eyes Bilateral: positive: Normal inspection ENT: positive: ENT inspection nml, Pharynx nml, Dry mucous membranes Neck: positive: Nml inspection, Thyroid nml, No JVD, Trachea midline Respiratory: positive: Chest non-tender, Wheezes, Rales (left), Rhonchi Cardiovascular: positive: Regular rate & rhythm, Systolic murmur, Decreased pulse(s) Peripheral Pulses: positive: 1+ Abdomen: positive: Non-tender, No organomegaly, Nml bowel sounds Back: positive: Nml inspection Skin: positive: Color nml, No rash, Warm, Dry, Other (bruising left knee and lower leg.) Extremities: positive: No pedal edema, Other (bruising left knee and lower leg.) Neurologic/Psychiatric: positive: Disoriented to place, Disoriented to time, Weakness, Sensory loss, Depressed mood/affect Results - Results Fish Bones: 04/20/17 05:30 04/20/17 05:30 Diagnostic Imaging Results: Prelim report reviewed Diagnostic Imaging Comments: head CT 04/16/17 after a fall at home: IMPRESSION: 1. Generalized age-related cortical atrophic changes without evidence of acute intracranial abnormality. 2. Layering fluid within sphenoid sinus raises concern for sinusitis. Cervical spine CT 04/16/17 after a fall at home: IMPRESSION: 1. No cervical spine fracture. 2. Mild degenerative changes. - Intake & Output Intake & Output: Intake & Output 04/16/17 04/17/17 04/18/17 04/19/17 23:59 23:59 23:59 23:59 Intake Total 1100 Balance 1100 Impression/Plan - Problem List Problem List: Malignant neoplasm of pancreas: Patient has been seeing [facility] oncology clinic and was first diagnosed earlier this year in the state of [place]. Plan: Continued therapy as per [facility] clinic. Disorientation: Apparent upon admission. Primary transitional care liaison is patient's sister and has noted increased confusion that has progressively gotten worse over the past few days. Today she was witnessed putting her pant leg over her head and attempting to tie pant legs like shoe-strings. Plan: We will avoid clutter, offer frequent toileting, with frequent nursing rounds. MRI head is scheduled for AM. Weakness: This has been a progressive problem as evidence by increased falls with injury and debility. Plan: PT/OT consulted after acute illness. Repeated falls: With injury to head, LUE and LLE. Bruising noted to left knee and extend to ankle/foot. Plan: Bed alarm for safety. PT/OT consulted after acute illness. Diabetes mellitus with uncontrolled blood glucose: Blood glucose on chemistry lab finding upon admit was over 400mg/dl. Suspect related to stress/illness. Plan: Sliding scale insulin ordered with POC blood glucose checks. Pneumonia: Suspected due to coarse crackles heard over all lung cox, tachypnea, and febrile state. Plan: Chest x-ray in am with MRI to decrease patient disorientation. BC x2, sputum cx, urine cx and zosyn IV initiated. Greater than 30 minutes was spent on this admission including patient exam, family/patient counseling.
[2017-04-19] MEDS ORDERED: PROCHLORPERAZINE 5 MG TABLET PO PRN (13:34)
[2017-04-19] MEDS ORDERED: LORazepam 2 MG/ML SYRINGE IVP ONE (13:38)
[2017-04-19] MEDS: clonazePAM 0.5 MG TABLET PO SCH ×2 (15:32→20:53)
[2017-04-19] MEDS: FAMOTIDINE 20 MG TABLET PO SCH (15:32)
[2017-04-19] MEDS ORDERED: PIPERACILLIN/TAZOBACTAM 4.5 GM in SODIUM CHLORIDE 0.9% MINIBAG 100 ML IV SCH (18:00)
[2017-04-19] MEDS: OLANZapine ODT 5 MG TABLET TL PRN (18:49)
[2017-04-19] MEDS: CELECOXIB 100 MG CAPSULE PO SCH (18:49)
[2017-04-19] MEDS: SODIUM CHLORIDE FLUSH 0.9% 10 ML SYRINGE IVP SCH ×2 (18:49→19:12)
[2017-04-19] MEDS: SODIUM CHLORIDE 0.9% 1,000 ML IV SCH (19:00)
[2017-04-19] MEDS: INSULIN ASPART 300 UNIT/3 ML PEN SUBQ SCH ×2 (19:12→21:26)
--- NOTE | 2017-04-19 19:30 | ADVANCE CARE PLANNING NOTE ---
Advance Care Planning - Date/Time Date: 04/19/17 Time: 18:00 - Purpose of encounter Text: Thoughts about palliative care and end-of-life wishes discussed with sisterCheli as patient was non-interactive due to delirium and agitation. - Parties in attendance Parties in attendance: Patient, sister-Cheli and myself. - Decisional capacity Decisional capacity of: Patient lacks capacity to understand health condition. Disorientated except to person. - Subjective/Patient's story Subjective/Patient's story: Patient is profoundly agitated and states, "I just want to get out of here". - Objective/Medical story Objective/Medical Story: Patient is noted to be tachyepnic and was attempting to get out of bed. Unable to answer questions. - Goals of Care Goals of care determinations: Comfort Chemotherapy if tolerated Placement for complex care needs - Plan Plan: Mary will be treated for pneumonia, prevention of falls and evaluated for placement. Palliative care very involved as this is a socially complex case. - Code Status Code Status: Do Not Attempt Resuscitation - Time Spent on Advance Care Planning Time spent on advance care plannin
[2017-04-19] MEDS: levoFLOXacin 750 MG/150 ML 750 MG/150 ML BAG IV SCH (20:26)
[2017-04-19] MEDS: ACETAMINOPHEN 325 MG TABLET PO PRN (20:51)
[2017-04-19] MEDS: PIPERACILLIN/TAZOBACTAM 4.5 GM in SODIUM CHLORIDE 0.9% MINIBAG 100 ML IV SCH (22:26)
[2017-04-19 23:41] LABS: BILIRUBIN,URINE NEGATIVE (NEGATIVE)
[2017-04-19 23:50] LABS: UR CULTURE IF IND INDICATED; WBC,URINE >25 /HPF (0-5)
[2017-04-20] MEDS: PIPERACILLIN/TAZOBACTAM 4.5 GM in SODIUM CHLORIDE 0.9% MINIBAG 100 ML IV SCH ×3 (05:10→21:38)
[2017-04-20] MEDS: SODIUM CHLORIDE FLUSH 0.9% 10 ML SYRINGE IVP PRN ×2 (05:11→05:12)
[2017-04-20] MEDS: SODIUM CHLORIDE FLUSH 0.9% 10 ML SYRINGE IVP SCH ×3 (05:17→21:40)
[2017-04-20] MEDS: SODIUM CHLORIDE 0.9% 1,000 ML IV SCH ×3 (05:21→15:13)
[2017-04-20 05:52] LABS: BASOPHILS % (AUTO) 0.1 %; EOSINOPHILS % (AUTO) 0.8 %; HCT - HEMATOCRIT 21.7 % (37.0-47.0); HGB - HEMOGLOBIN 7.2 g/dL (12.0-16.0); LYMPHOCYTES # (AUTO) 0.5 10^3/uL (1.5-3.5); MEAN CORPUSCULAR HEMOGLOBIN 32.4 pg (27.0-31.0); MEAN CORPUSCULAR HGB CONC 33.1 g/dL (32.0-36.0); MEAN PLATELET VOLUME 8.6 fL (7.9-10.8); MONOCYTES % (AUTO) 0.3 %; NEUTROPHILS # (AUTO) 4.6 10^3/uL (1.5-6.6); NEUTROPHILS % (AUTO) 88.8 %; RED BLOOD COUNT 2.21 10^6/uL (4.20-5.40); RED CELL DISTRIBUTION WIDTH 14.8 % (12.0-15.0); UNCORRECTED WHITE BLOOD COUNT 5.2 x10^3/uL; WHITE BLOOD COUNT 5.2 x10^3/uL (4.8-10.8)
[2017-04-20 05:53] LABS: ALBUMIN/GLOBULIN RATIO 0.7 (1.0-2.2); BILIRUBIN,TOTAL 0.9 mg/dL (0.2-1.0); CALCIUM 7.9 mg/dL (8.5-10.3); MAGNESIUM 1.2 mg/dL (1.7-2.8); POTASSIUM 3.3 mmol/L (3.5-5.0); TOTAL PROTEIN 5.7 g/dL (6.7-8.2)
[2017-04-20 05:59] LABS: HEMOGLOBIN A1C 0.45 g/dL
[2017-04-20] MEDS: INSULIN ASPART 300 UNIT/3 ML PEN SUBQ SCH ×3 (08:24→21:39)
--- NOTE | 2017-04-20 08:38 | PROVIDER PROGRESS NOTE ---
Subjective - Prog Note Date Prog Note Date: 04/20/17 Prog Note Time: 08:38 - Subjective Pt reports feeling: Improved, No change Subjective: Mary does not remember me from admitting her the hospital yesterday, and complains of mid epi-gastric pain. She denies SOB, chest pain, N/V, or new cough. She does not like being woke up for her nebulizer treatments. Current Medications - Current Medications Current Medications: Active Medications Generic Name Dose Route Start Last Admin Trade Name Freq PRN Reason Stop Dose Admin Acetaminophen 650 mg 04/19/17 19:59 04/20/17 15:33 Tylenol PO 650 mg Q4HR PRN Administration Pain or Fever > 38C (100.4F) Albuterol/Ipratropium 3 ml 04/20/17 19:00 Duoneb INH RTQ4H PRN Wheezing Budesonide 0.5 mg 04/20/17 09:00 04/20/17 20:30 Pulmicort INH 0.5 mg RTBID AMARILIS Administration Celecoxib 200 mg 04/19/17 17:00 04/20/17 16:51 Celebrex PO 200 mg DAILY@1700 AMARILIS Administration Citalopram Hydrobromide 40 mg 04/20/17 09:00 04/20/17 10:25 Celexa PO 40 mg DAILY AMARILIS Administration Clonazepam 1 mg 04/19/17 14:00 04/20/17 21:37 Klonopin PO 1 mg BID AMARILIS Administration Docusate Sodium 250 - 500 mg 04/20/17 09:00 04/20/17 10:25 Colace 250mg Capsule PO 250 mg DAILY AMARILIS Administration Famotidine 20 mg 04/19/17 12:00 04/20/17 11:09 Pepcid PO 20 mg DAILY AMARILIS Administration Formoterol Fumarate 20 mcg 04/20/17 09:00 04/20/17 20:30 Perforomist INH 20 mcg RTBID AMARILIS Administration Hydromorphone HCl 0.5 mg 04/19/17 11:49 Dilaudid Inj Syringe IVP Q2H PRN Pain 8 to 10 Piperacillin Sod/Tazobactam 100 mls @ 25 mls/hr 04/19/17 21:00 04/20/17 21:38 Sod 4.5 gm/ Sodium Chloride IV 25 mls/hr Q8H AMARILIS Administration Magnesium Sulfate 2 gm in 50 mls @ 50 mls/hr 04/20/17 23:34 04/21/17 00:11 Magnesium Sulfate IV 04/21/17 03:00 50 mls/hr ONCE AMARILIS Administration Insulin Aspart 3 - 11 unit 04/20/17 21:00 04/20/17 21:39 Novolog SUBQ 9 unit 0800,1200,1700,2100 AMARILIS Administration Protocol Olanzapine 10 mg 04/19/17 13:34 04/19/17 18:49 Zyprexa Odt TL 10 mg DAILY PRN Administration Agitation Oxycodone HCl 5 mg 04/19/17 13:34 04/20/17 19:31 Roxicodone PO 5 mg Q4H PRN Administration PAIN Polyethylene Glycol 17 gm 04/20/17 09:00 04/20/17 11:09 Miralax PO Not Given DAILY AMARILIS Prochlorperazine Maleate 10 mg 04/19/17 13:34 Compazine PO Q6H PRN Nausea / Vomiting Senna 8.6 - 17.2 mg 04/20/17 09:00 04/20/17 10:25 Senokot PO 8.6 mg DAILY AMARILIS Administration Sodium Chloride 10 ml 04/19/17 11:49 04/20/17 05:12 Normal Saline Flush 0.9% IVP 10 ml PRN PRN Administration NEEDED PER PROVIDER ORDERS Sodium Chloride 10 ml 04/19/17 14:00 04/20/17 21:40 Normal Saline Flush 0.9% IVP 10 ml Q8HR AMARILIS Administration Temazepam 15 mg 04/19/17 11:49 Restoril PO QPM PRN Insomnia Rivaroxaban [Xarelto] 20 mg PO DAILY@1700 03/31/17 Zolpidem [Ambien] 5 mg PO QPM PRN 03/31/17 metFORMIN [Glucophage] 1,000 mg PO BIDWM 03/31/17 oxyCODONE [Roxicodone] 5 mg PO Q4H PRN 04/16/17 Celecoxib [CeleBREX] 200 mg PO DAILY@1700 04/19/17 Citalopram [CeleXA] 40 mg PO DAILY 04/19/17 Insulin Aspart [Novolog Flexpen] 2 - 9 units SUBQ DAILY 04/19/17 Insulin Degludec [Tresiba Flextouch U-100] 45 units SUBQ DAILY 04/19/17 Levothyroxine Sodium 125 mcg PO QDAC 04/19/17 Prochlorperazine [Compazine] 10 mg PO Q6H PRN 04/19/17 clonazePAM [Clonazepam] 1 mg PO BID 04/19/17 Objective - Vital Signs/Intake & Output Reviewed Vital Signs: Yes Vital Signs: Vital Signs x48h Temp Pulse Resp BP BP Pulse Ox 04/20/17 05:00 36.4 C L 72 18 101/50 L 97 04/20/17 00:47 36.6 C 76 16 108/52 L 97 Intake & Output: Intake & Output 04/17/17 04/18/17 04/19/17 04/20/17 23:59 23:59 23:59 23:59 Intake Total 1700 768.75 Output Total 300 Balance 1400 768.75 - Objective General Appearance: positive: No acute distress, Alert Eyes Bilateral: positive: Normal inspection, PERRL ENT: positive: ENT inspection nml, Pharynx nml, No signs of dehydration Neck: positive: Nml inspection, Thyroid nml, No JVD, Trachea midline Respiratory: positive: Chest non-tender, No respiratory distress, Other ( crackles) Cardiovascular: positive: Regular rate & rhythm, No gallop Abdomen: positive: Guarding, Hepatomegaly, Splenomegaly, Mass, Abnml bowel sounds Back: positive: Nml inspection Skin: positive: Warm, Dry, Pallor Extremities: positive: Non-tender, No pedal edema, Calf tenderness, Joint swelling (bruising left lower extremity.) - Lab Results Fish Bones: 04/20/17 05:30 04/20/17 05:30 Other Labs: Lab Results x24hrs 04/20/17 04/20/17 04/20/17 Range/Units 07:26 05:30 05:30 WBC (4.8-10.8) x10^3/uL RBC (4.20-5.40) 10^6/uL Hgb (12.0-16.0) g/dL Hct (37.0-47.0) % MCV (81.0-99.0) fL MCH (27.0-31.0) pg MCHC (32.0-36.0) g/dL RDW (12.0-15.0) % Plt Count (130-450) 10^3/uL MPV (7.9-10.8) fL Neut # (1.5-6.6) 10^3/uL Lymph # (1.5-3.5) 10^3/uL [place]ata[place] # (0.0-1.0) 10^3/uL Eos # (0.0-0.7) 10^3/uL Baso # (0.0-0.1) 10^3/uL Absolute Nucleated RBC x10^3/uL Nucleated RBC % /100WBC Sodium (135-145) mmol/L Potassium (3.5-5.0) mmol/L Chloride (101-111) mmol/L Carbon Dioxide (21-32) mmol/L Anion Gap (6-13) BUN (6-20) mg/dL Creatinine (0.4-1.0) mg/dL Estimated GFR (MDRD) (>89) Glucose (70-100) mg/dL POC Whole Bld Glucose 200 H (70 - 100) mg/dL Glycated Hemoglobin 7.6 H (4.6-6.2) % Estim Average Glucose 171 H (70-100) Lactic Acid 0.8 (0.5-2.2) mmol/L Calcium (8.5-10.3) mg/dL Phosphorus (2.5-4.6) mg/dL Magnesium (1.7-2.8) mg/dL Total Bilirubin (0.2-1.0) mg/dL AST (10-42) IU/L ALT (10-60) IU/L Alkaline Phosphatase (42-121) IU/L Total Protein (6.7-8.2) g/dL Albumin (3.2-5.5) g/dL Globulin (2.1-4.2) g/dL Albumin/Globulin Ratio (1.0-2.2) Urine Color Urine Clarity (CLEAR) Urine pH (5.0-7.5) PH Ur Specific [place] (1.002-1.030) Urine Protein (NEGATIVE) mg/dL Urine Glucose (UA) (NEGATIVE) mg/dL Urine Ketones (NEGATIVE) mg/dL Urine Occult Blood (NEGATIVE) Urine Nitrite (NEGATIVE) Urine Bilirubin (NEGATIVE) Urine Urobilinogen (NORMAL) E.U./dL Ur Leukocyte Esterase (NEGATIVE) Urine RBC (0-5) /HPF Urine WBC (0-5) /HPF Ur Squamous Epith Cells (<= Few) Urine Bacteria (None Seen) /HPF Urine Yeast Urine Culture Comments 04/20/17 04/20/17 04/20/17 Range/Units 05:30 05:30 05:30 WBC 5.2 (4.8-10.8) x10^3/uL RBC 2.21 L (4.20-5.40) 10^6/uL Hgb 7.2 L (12.0-16.0) g/dL Hct 21.7 L (37.0-47.0) % MCV 98.0 (81.0-99.0) fL MCH 32.4 H (27.0-31.0) pg MCHC 33.1 (32.0-36.0) g/dL RDW 14.8 (12.0-15.0) % Plt Count 39 L (130-450) 10^3/uL MPV 8.6 (7.9-10.8) fL Neut # 4.6 (1.5-6.6) 10^3/uL Lymph # 0.5 L (1.5-3.5) 10^3/uL [place]ata[place] # 0.0 (0.0-1.0) 10^3/uL Eos # 0.0 (0.0-0.7) 10^3/uL Baso # 0.0 (0.0-0.1) 10^3/uL Absolute Nucleated RBC 0.00 x10^3/uL Nucleated RBC % 0.0 /100WBC Sodium 134 L (135-145) mmol/L Potassium 3.3 L (3.5-5.0) mmol/L Chloride 102 (101-111) mmol/L Carbon Dioxide 23 (21-32) mmol/L Anion Gap 9.0 (6-13) BUN 16 (6-20) mg/dL Creatinine 1.0 (0.4-1.0) mg/dL Estimated GFR (MDRD) 55 L (>89) Glucose 230 H (70-100) mg/dL POC Whole Bld Glucose (70 - 100) mg/dL Glycated Hemoglobin (4.6-6.2) % Estim Average Glucose (70-100) Lactic Acid (0.5-2.2) mmol/L Calcium 7.9 L (8.5-10.3) mg/dL Phosphorus 2.7 (2.5-4.6) mg/dL Magnesium 1.2 L (1.7-2.8) mg/dL Total Bilirubin 0.9 (0.2-1.0) mg/dL AST 25 (10-42) IU/L ALT 18 (10-60) IU/L Alkaline Phosphatase 112 (42-121) IU/L Total Protein 5.7 L (6.7-8.2) g/dL Albumin 2.4 L (3.2-5.5) g/dL Globulin 3.3 (2.1-4.2) g/dL Albumin/Globulin Ratio 0.7 L (1.0-2.2) Urine Color Urine Clarity (CLEAR) Urine pH (5.0-7.5) PH Ur Specific [place] (1.002-1.030) Urine Protein (NEGATIVE) mg/dL Urine Glucose (UA) (NEGATIVE) mg/dL Urine Ketones (NEGATIVE) mg/dL Urine Occult Blood (NEGATIVE) Urine Nitrite (NEGATIVE) Urine Bilirubin (NEGATIVE) Urine Urobilinogen (NORMAL) E.U./dL Ur Leukocyte Esterase (NEGATIVE) Urine RBC (0-5) /HPF Urine WBC (0-5) /HPF Ur Squamous Epith Cells (<= Few) Urine Bacteria (None Seen) /HPF Urine Yeast Urine Culture Comments 04/19/17 04/19/17 04/19/17 Range/Units 23:20 20:34 16:50 WBC (4.8-10.8) x10^3/uL RBC (4.20-5.40) 10^6/uL Hgb (12.0-16.0) g/dL Hct (37.0-47.0) % MCV (81.0-99.0) fL MCH (27.0-31.0) pg MCHC (32.0-36.0) g/dL RDW (12.0-15.0) % Plt Count (130-450) 10^3/uL MPV (7.9-10.8) fL Neut # (1.5-6.6) 10^3/uL Lymph # (1.5-3.5) 10^3/uL [place] # (0.0-1.0) 10^3/uL Eos # (0.0-0.7) 10^3/uL Baso # (0.0-0.1) 10^3/uL Absolute Nucleated RBC x10^3/uL Nucleated RBC % /100WBC Sodium (135-145) mmol/L Potassium (3.5-5.0) mmol/L Chloride (101-111) mmol/L Carbon Dioxide (21-32) mmol/L Anion Gap (6-13) BUN (6-20) mg/dL Creatinine (0.4-1.0) mg/dL Estimated GFR (MDRD) (>89) Glucose (70-100) mg/dL POC Whole Bld Glucose 328 H 282 H (70 - 100) mg/dL Glycated Hemoglobin (4.6-6.2) % Estim Average Glucose (70-100) Lactic Acid (0.5-2.2) mmol/L Calcium (8.5-10.3) mg/dL Phosphorus (2.5-4.6) mg/dL Magnesium (1.7-2.8) mg/dL Total Bilirubin (0.2-1.0) mg/dL AST (10-42) IU/L ALT (10-60) IU/L Alkaline Phosphatase (42-121) IU/L Total Protein (6.7-8.2) g/dL Albumin (3.2-5.5) g/dL Globulin (2.1-4.2) g/dL Albumin/Globulin Ratio (1.0-2.2) Urine Color YELLOW Urine Clarity HAZY (CLEAR) Urine pH 6.0 (5.0-7.5) PH Ur Specific [place] 1.010 (1.002-1.030) Urine Protein 30 H (NEGATIVE) mg/dL Urine Glucose (UA) NEGATIVE (NEGATIVE) mg/dL Urine Ketones NEGATIVE (NEGATIVE) mg/dL Urine Occult Blood LARGE H (NEGATIVE) Urine Nitrite NEGATIVE (NEGATIVE) Urine Bilirubin NEGATIVE (NEGATIVE) Urine Urobilinogen 0.2 (NORMAL) (NORMAL) E.U./dL Ur Leukocyte Esterase MODERATE H (NEGATIVE) Urine RBC 11-25 H (0-5) /HPF Urine WBC >25 H (0-5) /HPF Ur Squamous Epith Cells FEW Squamous (<= Few) Urine Bacteria Few (None Seen) /HPF Urine Yeast PRESENT Urine Culture Comments INDICATED - Diagnostic Imaging Diagnostic Imaging Results: positive: Prelim report reviewed Diagnostic Imaging Comments: MRI brain with and without IV contrast: Somewhat limited test due to motion. Negative for mets/CVA. May be small vessel disease (preliminary). Assessment/Plan - Problem List (1) Pancreatic cancer metastasized to liver Impression: Patient has been seeing [facility] oncology clinic and was first diagnosed earlier this year in the state of [place]. Plan: Continued therapy as per [facility] clinic and palliative support with Lauren Townsend. (2) Progressive focal motor weakness Impression: Weakness: This has been a progressive problem as evidence by increased falls with injury and debility. Plan: PT/OT consulted after acute illness. Non-skid foot wear should be worn and a bed/chair alarm at all times since patient continues to be impulsive and unaware of the likelihood of a subsequent fall. (3) Frequent falls Impression: With injury to head, LUE and LLE. Bruising noted to left knee and extend to ankle/foot. Patient remains impulsive and looses awareness of surroundings at times. Plan: Bed or chair alarm for safety. PT/OT consulted after acute illness. Patient should be reminded to wear non-skid socks and to call for help since she remains unaware of her risk of falls. (4) Type II diabetes mellitus Impression: HgA1C was 7.6 on 04/20/17. Blood glucose on chemistry lab finding upon admit was over 400mg/dl. Suspect related to stress/illness. Plan: Sliding scale insulin ordered with POC blood glucose checks. (5) Confusion Impression: Patient is more oriented on exam today, but remains profoundly forgetful and a poor historian. Plan: Bed or chair alarm should be utilized. Visits from family/friends to reorient. We will continue to monitor labs.
[2017-04-20] MEDS ORDERED: POTASSIUM CHLORIDE 20 MEQ TABLET PO SCH (09:00)
[2017-04-20] MEDS ORDERED: MAGNESIUM SULFATE 2 GRAM 2 GM/50 ML BAG IV SCH ×2 (10:00→23:34)
[2017-04-20] MEDS: DOCUSATE SODIUM 250 MG CAPSULE PO SCH (10:25)
[2017-04-20] MEDS: SENNA 8.6 MG TABLET PO SCH (10:25)
[2017-04-20] MEDS: CITALOPRAM 10 MG TABLET PO SCH (10:25)
[2017-04-20] MEDS: clonazePAM 0.5 MG TABLET PO SCH ×2 (10:26→21:37)
[2017-04-20] MEDS ORDERED: LORazepam 2 MG/ML SYRINGE ONE (10:35)
[2017-04-20] MEDS ORDERED: GADOBUTROL 10 MMOL/10 ML VIAL ONE (11:07)
[2017-04-20] MEDS: POLYETHYLENE GLYCOL 3350 17 GM PACKET PO SCH (11:09)
[2017-04-20] MEDS: FAMOTIDINE 20 MG TABLET PO SCH (11:09)
[2017-04-20] MEDS ORDERED: GADOBUTROL 10 MMOL/10 ML VIAL IVP ONE (11:55)
--- NOTE | 2017-04-20 12:32 | MRI Preliminary Report ---
Exam: MRI BRAIN W/WO IMPRESSION: 1.Negative MRI of the brain, without and with contrast. No acute abnormality. No evidence for metasta tic disease. 2. Mild senescent change. Age-related volume loss. Minimal white matter T2/FLAIR bright signal is see n in the cerebral hemispheres and brainstem. This is nonspecific but typically secondary to small ves fredy ischemic change. RADIA SITE ID: [id number]
[2017-04-20] MEDS ORDERED: SODIUM CHLORIDE FLUSH 0.9% 10 ML SYRINGE IVP ONE ×2 (12:59→15:27)
[2017-04-20] MEDS: IPRATROPIUM/ALBUTEROL 3 ML NEB INH SCH ×3 (13:18→16:35)
[2017-04-20] MEDS: BUDESONIDE 0.5 MG/2 ML NEB INH SCH ×2 (13:19→20:30)
[2017-04-20] MEDS: FORMOTEROL FUMARATE NEB 20 MCG/2 ML INH SCH ×2 (13:19→20:30)
--- NOTE | 2017-04-20 13:26 | XRAY Report ---
TWO VIEW CHEST: 04/20/2017 CLINICAL INDICATION: Crackles, shortness of breath. FINDINGS: Frontal and lateral views of the chest demonstrate a normal cardiac silhouette. A right ju gular port terminates in the distal superior vena cava. The lungs are hyperinflated, compatible with COPD. No focal consolidation, effusion, or pneumothorax is present. IMPRESSION: HYPERINFLATION, COMPATIBLE WITH COPD. NO EVIDENCE OF ACUTE CARDIOPULMONARY DISEASE. JOB #: [id number] EXT JOB #:[id number]
--- NOTE | 2017-04-20 13:29 | MRI Report ---
EXAM: MRI BRAIN WITHOUT AND WITH CONTRAST EXAM DATE: 04/20/2017 12:09 PM. CLINICAL HISTORY: Rule out CVA/METS. History of delirium. History of stage IV pancreatic cancer. COMPARISON: CT scan of the head 04/16/2017. TECHNIQUE: Multiplanar, multisequence T1-weighted and fluid-sensitive MR sequences of the brain were performed. Sequences optimized for routine evaluation. Other: None. IV Contrast: 8.5 cc Gadavist. FINDINGS: (Many of the series are limited by motion artifact.) Brain Volume: Mild age advanced volume loss is present. Parenchyma: No acute hemorrhage, mass, or infarct. Minimal confluent periventricular with scattered p unctate deep white matter T2 and FLAIR bright signal is seen in the cerebral hemispheres and brainste m. No cortical signal abnormality. No abnormal enhancement. Ventricles/Cisterns: Mild age-related prominence to the ventricular system and overlying cortical sul ci is seen. No hydrocephalus. No abnormal extra-axial fluid collection or hemorrhage. Orbits: Symmetric and unremarkable. Note is made of bilateral lens removal. Sella Turcica: The pituitary gland, cavernous sinuses, suprasellar cistern and optic chiasm are unrem arkable. IAC: Symmetric and unremarkable. Vasculature: Normal signal flow void is seen in the major arterial structures at the skull base. The dural sinuses are patent and enhance normally. Sinuses: Mild polypoid mucosal thickening is seen in the left sphenoid sinus. Mucosal thickening is s een involving posterior inferior mastoid air cells, greater on the left. Bones: No focal pathologic appearing marrow signal changes. Mild decreased T1 signal is seen througho ut the bone marrow of the skull, likely representing hematopoietic activity. Other: None. IMPRESSION: 1.Negative MRI of the brain, without and with contrast. No acute abnormality. No evidence for metasta tic disease. 2. Mild senescent change. Age-related volume loss. Minimal white matter T2/FLAIR bright signal is see n in the cerebral hemispheres and brainstem. This is nonspecific, but typically secondary to small ve ssel ischemic change. [facility] Referring Provider Line: [phone] SITE ID: [id number]
[2017-04-20] MEDS: ACETAMINOPHEN 325 MG TABLET PO PRN (15:33)
[2017-04-20] MEDS: CELECOXIB 100 MG CAPSULE PO SCH (16:51)
[2017-04-20] MEDS ORDERED: INSULIN ASPART 300 UNIT/3 ML PEN SUBQ SCH (17:00)
[2017-04-20] MEDS: levoFLOXacin 750 MG/150 ML 750 MG/150 ML BAG IV SCH (18:37)
[2017-04-20] MEDS: oxyCODONE 5 MG TABLET PO PRN (19:31)
[2017-04-21] MEDS: PIPERACILLIN/TAZOBACTAM 4.5 GM in SODIUM CHLORIDE 0.9% MINIBAG 100 ML IV SCH ×3 (04:34→21:59)
[2017-04-21 05:43] LABS: BASOPHILS % (AUTO) 0.4 %; EOSINOPHILS % (AUTO) 2.5 %; HCT - HEMATOCRIT 22.8 % (37.0-47.0); HGB - HEMOGLOBIN 7.5 g/dL (12.0-16.0); LYMPHOCYTES % (AUTO) 19.6 %; MEAN CORPUSCULAR HEMOGLOBIN 32.6 pg (27.0-31.0); MEAN CORPUSCULAR VOLUME 98.6 fL (81.0-99.0); MEAN PLATELET VOLUME 9.1 fL (7.9-10.8); MONOCYTES % (AUTO) 0.4 %; NEUTROPHILS % (AUTO) 77.1 %; RED BLOOD COUNT 2.31 10^6/uL (4.20-5.40); RED CELL DISTRIBUTION WIDTH 15.4 % (12.0-15.0); UNCORRECTED WHITE BLOOD COUNT 2.3 x10^3/uL; WHITE BLOOD COUNT 2.3 x10^3/uL (4.8-10.8)
[2017-04-21 05:56] LABS: ALBUMIN/GLOBULIN RATIO 0.7 (1.0-2.2); BILIRUBIN,TOTAL 0.5 mg/dL (0.2-1.0); CALCIUM 8.2 mg/dL (8.5-10.3); POTASSIUM 3.4 mmol/L (3.5-5.0)
[2017-04-21 06:18] LABS: MAGNESIUM 2.4 mg/dL (1.7-2.8)
[2017-04-21 06:39] LABS: BAND NEUTROPHILS % (MANUAL) 1 %; EOSINOPHILS % (MANUAL) 2 %; LYMPHOCYTES % (MANUAL) 14 %; NEUTROPHILS % (MANUAL) 83 %; PLATELET ESTIMATE, MANUAL DECREASED (<130,000) (NORMAL); TOTAL CELLS COUNTED 100
[2017-04-21 06:41] LABS: NP AUTO DIFFERENTIAL? YES; NP MAN DIFFERENTIAL? NO
[2017-04-21] MEDS: SODIUM CHLORIDE FLUSH 0.9% 10 ML SYRINGE IVP SCH ×3 (06:50→21:59)
[2017-04-21] MEDS: INSULIN ASPART 300 UNIT/3 ML PEN SUBQ SCH ×4 (08:29→21:59)
[2017-04-21] MEDS: IPRATROPIUM/ALBUTEROL 3 ML NEB INH PRN ×2 (09:15→19:30)
[2017-04-21] MEDS: FORMOTEROL FUMARATE NEB 20 MCG/2 ML INH SCH ×2 (09:15→19:30)
[2017-04-21] MEDS: BUDESONIDE 0.5 MG/2 ML NEB INH SCH ×2 (09:15→19:30)
[2017-04-21] MEDS: FAMOTIDINE 20 MG TABLET PO SCH (10:29)
[2017-04-21] MEDS: clonazePAM 0.5 MG TABLET PO SCH ×2 (10:30→21:58)
[2017-04-21] MEDS: CITALOPRAM 10 MG TABLET PO SCH (10:30)
[2017-04-21] MEDS: DOCUSATE SODIUM 250 MG CAPSULE PO SCH (10:57)
[2017-04-21] MEDS: SENNA 8.6 MG TABLET PO SCH (10:58)
[2017-04-21] MEDS: POLYETHYLENE GLYCOL 3350 17 GM PACKET PO SCH (10:58)
--- NOTE | 2017-04-21 12:35 | PROVIDER PROGRESS NOTE ---
Subjective - Prog Note Date Prog Note Date: 04/21/17 Prog Note Time: 12:35 - Subjective Pt reports feeling: No change Subjective: Mary requests to see provider and does not recall the events of her admission or meeting me on that day. She talked about how enjoyable her traveling has been in her life. She became tearful when speaking about her sister and her unknown life expectancy. She denies SOB, chest pain, N/V or new cough. Current Medications - Current Medications Current Medications: Active Medications Generic Name Dose Route Start Last Admin Trade Name Freq PRN Reason Stop Dose Admin Acetaminophen 650 mg 04/19/17 19:59 04/20/17 15:33 Tylenol PO 650 mg Q4HR PRN Administration Pain or Fever > 38C (100.4F) Albuterol/Ipratropium 3 ml 04/20/17 19:00 04/21/17 09:15 Duoneb INH 3 ml RTQ4H PRN Administration Wheezing Budesonide 0.5 mg 04/20/17 09:00 04/21/17 09:15 Pulmicort INH 0.5 mg RTBID AMARILIS Administration Celecoxib 200 mg 04/19/17 17:00 04/20/17 16:51 Celebrex PO 200 mg DAILY@1700 AMARILIS Administration Citalopram Hydrobromide 40 mg 04/20/17 09:00 04/21/17 10:30 Celexa PO 40 mg DAILY AMARILIS Administration Clonazepam 1 mg 04/19/17 14:00 04/21/17 10:30 Klonopin PO 1 mg BID AMARILIS Administration Docusate Sodium 250 - 500 mg 04/20/17 09:00 04/21/17 10:57 Colace 250mg Capsule PO Not Given DAILY AMARILIS Famotidine 20 mg 04/19/17 12:00 04/21/17 10:29 Pepcid PO 20 mg DAILY AMARILIS Administration Formoterol Fumarate 20 mcg 04/20/17 09:00 04/21/17 09:15 Perforomist INH 20 mcg RTBID AMARILIS Administration Hydromorphone HCl 0.5 mg 04/19/17 11:49 Dilaudid Inj Syringe IVP Q2H PRN Pain 8 to 10 Piperacillin Sod/Tazobactam 100 mls @ 25 mls/hr 04/19/17 21:00 04/21/17 08:45 Sod 4.5 gm/ Sodium Chloride IV Infused Q8H AMARILIS Infusion Insulin Aspart 3 - 11 unit 04/20/17 21:00 04/21/17 12:09 Novolog SUBQ 11 unit 0800,1200,1700,2100 AMARILIS Administration Protocol Insulin Glargine 15 unit 04/21/17 13:00 Lantus Solostar SUBQ QPM AMARILIS Olanzapine 10 mg 04/19/17 13:34 04/19/17 18:49 Zyprexa Odt TL 10 mg DAILY PRN Administration Agitation Oxycodone HCl 5 mg 04/19/17 13:34 04/20/17 19:31 Roxicodone PO 5 mg Q4H PRN Administration PAIN Polyethylene Glycol 17 gm 04/20/17 09:00 04/21/17 10:58 Miralax PO Not Given DAILY [facility] Prochlorperazine Maleate 10 mg 04/19/17 13:34 Compazine PO Q6H PRN Nausea / Vomiting Senna 8.6 - 17.2 mg 04/20/17 09:00 04/21/17 10:58 Senokot PO Not Given DAILY [facility] Sodium Chloride 10 ml 04/19/17 11:49 04/20/17 05:12 Normal Saline Flush 0.9% IVP 10 ml PRN PRN Administration NEEDED PER PROVIDER ORDERS Sodium Chloride 10 ml 04/19/17 14:00 04/21/17 06:50 Normal Saline Flush 0.9% IVP 10 ml Q8HR AMARILIS Administration Temazepam 15 mg 04/19/17 11:49 Restoril PO QPM PRN Insomnia Rivaroxaban [Xarelto] 20 mg PO DAILY@1700 03/31/17 Zolpidem [Ambien] 5 mg PO QPM PRN 03/31/17 metFORMIN [Glucophage] 1,000 mg PO BIDWM 03/31/17 oxyCODONE [Roxicodone] 5 mg PO Q4H PRN 04/16/17 Celecoxib [CeleBREX] 200 mg PO DAILY@1700 04/19/17 Citalopram [CeleXA] 40 mg PO DAILY 04/19/17 Insulin Aspart [Novolog Flexpen] 2 - 9 units SUBQ DAILY 04/19/17 Insulin Degludec [Tresiba Flextouch U-100] 45 units SUBQ DAILY 04/19/17 Levothyroxine Sodium 125 mcg PO QDAC 04/19/17 Prochlorperazine [Compazine] 10 mg PO Q6H PRN 04/19/17 clonazePAM [Clonazepam] 1 mg PO BID 04/19/17 Objective - Vital Signs/Intake & Output Reviewed Vital Signs: Yes Vital Signs: Vital Signs x48h Temp Pulse Pulse Resp BP Pulse Ox 04/21/17 12:29 36.8 C 79 18 114/53 L 97 04/21/17 09:15 85 18 04/21/17 07:40 37.4 C 75 20 131/52 H 95 04/21/17 05:00 36.3 C L 78 16 110/41 L 98 Intake & Output: Intake & Output 04/18/17 04/19/17 04/20/17 04/21/17 23:59 23:59 23:59 23:59 Intake Total 1700 5348.75 1330 Output Total 300 Balance 1400 5348.75 1330 - Objective General Appearance: positive: No acute distress, Alert Eyes Bilateral: positive: Normal inspection ENT: positive: ENT inspection nml, Pharynx nml, No signs of dehydration Neck: positive: Nml inspection, Thyroid nml, No JVD, Trachea midline Respiratory: positive: Chest non-tender, No respiratory distress, Wheezes, Rhonchi Cardiovascular: positive: Irregularly irregular, Systolic murmur Peripheral Pulses: 1+ Radial (R), 1+ Radial (L) Abdomen: positive: Non-tender, Nml bowel sounds, Guarding, Hepatomegaly, Splenomegaly Back: positive: Nml inspection Skin: positive: Color nml, No rash, Warm, Dry Extremities: positive: Non-tender, Full ROM, Pedal edema (trace) Neurologic/Psychiatric: positive: Disoriented to time, Weakness, Sensory loss, Depressed mood/affect Reflexes: Bicep (R): 1+, Bicep (L): 1+ - Lab Results Fish Bones: 04/21/17 05:25 04/21/17 05:25 Other Labs: Lab Results x24hrs 04/21/17 04/21/17 04/21/17 Range/Units 11:15 07:39 05:25 WBC (4.8-10.8) x10^3/uL RBC (4.20-5.40) 10^6/uL Hgb (12.0-16.0) g/dL Hct (37.0-47.0) % MCV (81.0-99.0) fL MCH (27.0-31.0) pg MCHC (32.0-36.0) g/dL RDW (12.0-15.0) % Plt Count (130-450) 10^3/uL MPV (7.9-10.8) fL Neut # Lymph # [place] # Eos # Baso # Absolute Nucleated RBC Total Counted Band Neuts % (Manual) (0 - 10) % Nucleated RBC % Neutrophils # (Manual) (1.5-6.6) 10^3/uL Lymphocytes # (Manual) (1.5-3.5) 10^3/uL Eosinophils # (Manual) (0-0.7) 10^3/uL Differential Comment Platelet Estimate (NORMAL) RBC Morph Micro Appear (NORMAL) Sodium (135-145) mmol/L Potassium (3.5-5.0) mmol/L Chloride (101-111) mmol/L Carbon Dioxide (21-32) mmol/L Anion Gap (6-13) BUN (6-20) mg/dL Creatinine (0.4-1.0) mg/dL Estimated GFR (MDRD) (>89) Glucose (70-100) mg/dL POC Whole Bld Glucose 343 H 203 H (70 - 100) mg/dL Calcium (8.5-10.3) mg/dL Magnesium 2.4 (1.7-2.8) mg/dL Total Bilirubin (0.2-1.0) mg/dL AST (10-42) IU/L ALT (10-60) IU/L Alkaline Phosphatase 133 H (42-121) IU/L Total Protein (6.7-8.2) g/dL Albumin (3.2-5.5) g/dL Globulin (2.1-4.2) g/dL Albumin/Globulin Ratio (1.0-2.2) 04/21/17 04/21/17 04/20/17 Range/Units 05:25 05:25 20:27 WBC 2.3 L (4.8-10.8) x10^3/uL RBC 2.31 L (4.20-5.40) 10^6/uL Hgb 7.5 L (12.0-16.0) g/dL Hct 22.8 L (37.0-47.0) % MCV 98.6 (81.0-99.0) fL MCH 32.6 H (27.0-31.0) pg MCHC 33.0 (32.0-36.0) g/dL RDW 15.4 H (12.0-15.0) % Plt Count 39 L (130-450) 10^3/uL MPV 9.1 (7.9-10.8) fL Neut # Not Reportable Lymph # Not Reportable [place] # Not Reportable Eos # Not Reportable Baso # Not Reportable Absolute Nucleated RBC Not Reportable Total Counted 100 Band Neuts % (Manual) 1 (0 - 10) % Nucleated RBC % Not Reportable Neutrophils # (Manual) 1.9 (1.5-6.6) 10^3/uL Lymphocytes # (Manual) 0.3 L (1.5-3.5) 10^3/uL Eosinophils # (Manual) 0.0 (0-0.7) 10^3/uL Differential Comment MANUAL DIFFERENTIAL Platelet Estimate DECREASED (<130,000) (NORMAL) RBC Morph Micro Appear 1+ HYPOCHROMASIA (NORMAL) Sodium 137 (135-145) mmol/L Potassium 3.4 L (3.5-5.0) mmol/L Chloride 105 (101-111) mmol/L Carbon Dioxide 23 (21-32) mmol/L Anion Gap 9.0 (6-13) BUN 12 (6-20) mg/dL Creatinine 1.0 (0.4-1.0) mg/dL Estimated GFR (MDRD) 55 L (>89) Glucose 197 H (70-100) mg/dL POC Whole Bld Glucose 282 H (70 - 100) mg/dL Calcium 8.2 L (8.5-10.3) mg/dL Magnesium (1.7-2.8) mg/dL Total Bilirubin 0.5 (0.2-1.0) mg/dL AST 28 (10-42) IU/L ALT 20 (10-60) IU/L Alkaline Phosphatase 125 H (42-121) IU/L Total Protein 6.0 L (6.7-8.2) g/dL Albumin 2.5 L (3.2-5.5) g/dL Globulin 3.5 (2.1-4.2) g/dL Albumin/Globulin Ratio 0.7 L (1.0-2.2) 04/20/17 04/20/17 04/20/17 Range/Units 16:28 16:24 13:06 WBC (4.8-10.8) x10^3/uL RBC (4.20-5.40) 10^6/uL Hgb (12.0-16.0) g/dL Hct (37.0-47.0) % MCV (81.0-99.0) fL MCH (27.0-31.0) pg MCHC (32.0-36.0) g/dL RDW (12.0-15.0) % Plt Count (130-450) 10^3/uL MPV (7.9-10.8) fL Neut # Lymph # [place] # Eos # Baso # Absolute Nucleated RBC Total Counted Band Neuts % (Manual) (0 - 10) % Nucleated RBC % Neutrophils # (Manual) (1.5-6.6) 10^3/uL Lymphocytes # (Manual) (1.5-3.5) 10^3/uL Eosinophils # (Manual) (0-0.7) 10^3/uL Differential Comment Platelet Estimate (NORMAL) RBC Morph Micro Appear (NORMAL) Sodium (135-145) mmol/L Potassium (3.5-5.0) mmol/L Chloride (101-111) mmol/L Carbon Dioxide (21-32) mmol/L Anion Gap (6-13) BUN (6-20) mg/dL Creatinine (0.4-1.0) mg/dL Estimated GFR (MDRD) (>89) Glucose (70-100) mg/dL POC Whole Bld Glucose 322 H 331 H 292 H (70 - 100) mg/dL Calcium (8.5-10.3) mg/dL Magnesium (1.7-2.8) mg/dL Total Bilirubin (0.2-1.0) mg/dL AST (10-42) IU/L ALT (10-60) IU/L Alkaline Phosphatase (42-121) IU/L Total Protein (6.7-8.2) g/dL Albumin (3.2-5.5) g/dL Globulin (2.1-4.2) g/dL Albumin/Globulin Ratio (1.0-2.2) - Diagnostic Imaging Diagnostic Imaging Results: positive: Final report reviewed Assessment/Plan - Problem List (1) Malignant neoplasm of pancreas Impression: Patient has been seeing [facility] oncology clinic and was first diagnosed earlier this year in the state of [place]. Life expectancy is unknown. Plan: Continued therapy as per [facility] clinic and palliative support with Lauren Townsend. (2) Dementia associated with other underlying disease Impression: Patient is tearful during her exam today about "where her life is going". She does not want to leave her sister. She lacks capacity to see the unsafe conditions associated with living alone. She seems very clear when talking about the traveling she has done in her life, but remains profoundly forgetful and a poor historian. Plan: Bed or chair alarm should be utilized. Visits from family/friends to reorient. We will continue to monitor labs. (3) Progressive focal motor weakness Impression: This has been a progressive problem as evidence by increased falls with injury and debility. Plan: PT/OT consulted after acute illness. Non-skid foot wear should be worn and a bed/chair alarm at all times since patient continues to be impulsive and unaware of the likelihood of a subsequent fall. (4) Frequent falls Impression: With injury to head, LUE and LLE. Bruising noted to left knee and extend to ankle/foot that is improving each day. Patient remains impulsive and looses awareness of surroundings at times. Plan: Bed or chair alarm for safety. PT/OT consulted after acute illness. Patient should be reminded to wear non-skid socks and to call for help since she remains unaware of her risk of falls. (5) Type II diabetes mellitus Impression: HgA1C was 7.6 on 04/20/17. Blood glucose on chemistry lab finding upon admit was over 400mg/dl. Suspect related to stress/illness. Blood sugars much improved today and were between 163-190. One high reading at lunch over 300mg/ dl. Plan: Sliding scale insulin ordered with POC blood glucose checks. Started long -acting insulin at 15U at hs, will increase to 20U.
[2017-04-21] MEDS: oxyCODONE 5 MG TABLET PO PRN (14:00)
[2017-04-21] MEDS: INSULIN GLARGINE 300 UNIT/3 ML PEN SUBQ SCH ×2 (14:00→21:58)
[2017-04-21] MEDS: CELECOXIB 100 MG CAPSULE PO SCH (16:47)
[2017-04-22] MEDS: oxyCODONE 5 MG TABLET PO PRN ×2 (03:03→23:58)
[2017-04-22] MEDS: PIPERACILLIN/TAZOBACTAM 4.5 GM in SODIUM CHLORIDE 0.9% MINIBAG 100 ML IV SCH ×3 (05:09→21:05)
[2017-04-22] MEDS: SODIUM CHLORIDE FLUSH 0.9% 10 ML SYRINGE IVP SCH ×3 (06:15→21:06)
[2017-04-22] MEDS: BUDESONIDE 0.5 MG/2 ML NEB INH SCH ×2 (07:20→19:40)
[2017-04-22] MEDS: IPRATROPIUM/ALBUTEROL 3 ML NEB INH PRN ×2 (07:20→19:40)
[2017-04-22] MEDS: FORMOTEROL FUMARATE NEB 20 MCG/2 ML INH SCH ×2 (07:20→19:40)
[2017-04-22] MEDS: CITALOPRAM 10 MG TABLET PO SCH (08:30)
[2017-04-22] MEDS: clonazePAM 0.5 MG TABLET PO SCH ×2 (08:30→21:06)
[2017-04-22] MEDS: FAMOTIDINE 20 MG TABLET PO SCH (08:31)
[2017-04-22] MEDS: INSULIN ASPART 300 UNIT/3 ML PEN SUBQ SCH ×4 (08:31→21:08)
--- NOTE | 2017-04-22 09:31 | PROVIDER PROGRESS NOTE ---
Subjective - Prog Note Date Prog Note Date: 04/22/17 Prog Note Time: 09:31 - Subjective Pt reports feeling: Improved Subjective: Mary denies SOB, chest pain, SAMANO, N/V, diarrhea, or a new cough. She remembers me coming by yesterday but admits to ongoing STM deficits. Current Medications - Current Medications Current Medications: Active Medications Generic Name Dose Route Start Last Admin Trade Name Freq PRN Reason Stop Dose Admin Acetaminophen 650 mg 04/19/17 19:59 04/20/17 15:33 Tylenol PO 650 mg Q4HR PRN Administration Pain or Fever > 38C (100.4F) Albuterol/Ipratropium 3 ml 04/20/17 19:00 04/22/17 07:20 Duoneb INH 3 ml RTQ4H PRN Administration Wheezing Budesonide 0.5 mg 04/20/17 09:00 04/22/17 07:20 Pulmicort INH 0.5 mg RTBID AMARILIS Administration Celecoxib 200 mg 04/19/17 17:00 04/21/17 16:47 Celebrex PO 200 mg DAILY@1700 AMARILIS Administration Citalopram Hydrobromide 40 mg 04/20/17 09:00 04/22/17 08:30 Celexa PO 40 mg DAILY AMARILIS Administration Clonazepam 1 mg 04/19/17 14:00 04/22/17 08:30 Klonopin PO 1 mg BID AMARILIS Administration Famotidine 20 mg 04/19/17 12:00 04/22/17 08:31 Pepcid PO 20 mg DAILY AMARILIS Administration Formoterol Fumarate 20 mcg 04/20/17 09:00 04/22/17 07:20 Perforomist INH 20 mcg RTBID AMARILIS Administration Hydromorphone HCl 0.5 mg 04/19/17 11:49 Dilaudid Inj Syringe IVP Q2H PRN Pain 8 to 10 Piperacillin Sod/Tazobactam 100 mls @ 25 mls/hr 04/19/17 21:00 04/22/17 05:09 Sod 4.5 gm/ Sodium Chloride IV 25 mls/hr Q8H AMARILIS Administration Insulin Aspart 3 - 11 unit 04/20/17 21:00 04/22/17 08:31 Novolog SUBQ 3 unit 0800,1200,1700,2100 AMARILIS Administration Protocol Insulin Glargine 15 unit 04/21/17 13:00 04/21/17 21:58 Lantus Solostar SUBQ 15 unit QPM AMARILIS Administration Olanzapine 10 mg 04/19/17 13:34 04/19/17 18:49 Zyprexa Odt TL 10 mg DAILY PRN Administration Agitation Oxycodone HCl 5 mg 04/19/17 13:34 04/22/17 03:03 Roxicodone PO 5 mg Q4H PRN Administration PAIN Prochlorperazine Maleate 10 mg 04/19/17 13:34 Compazine PO Q6H PRN Nausea / Vomiting Sodium Chloride 10 ml 04/19/17 11:49 04/20/17 05:12 Normal Saline Flush 0.9% IVP 10 ml PRN PRN Administration NEEDED PER PROVIDER ORDERS Sodium Chloride 10 ml 04/19/17 14:00 04/22/17 06:15 Normal Saline Flush 0.9% IVP 10 ml Q8HR AMARILIS Administration Temazepam 15 mg 04/19/17 11:49 Restoril PO QPM PRN Insomnia HOME MEDS: Rivaroxaban [Xarelto] 20 mg PO DAILY@1700 03/31/17 Zolpidem [Ambien] 5 mg PO QPM PRN 03/31/17 metFORMIN [Glucophage] 1,000 mg PO BIDWM 03/31/17 oxyCODONE [Roxicodone] 5 mg PO Q4H PRN 04/16/17 Celecoxib [CeleBREX] 200 mg PO DAILY@1700 04/19/17 Citalopram [CeleXA] 40 mg PO DAILY 04/19/17 Insulin Aspart [Novolog Flexpen] 2 - 9 units SUBQ DAILY 04/19/17 Insulin Degludec [Tresiba Flextouch U-100] 45 units SUBQ DAILY 04/19/17 Levothyroxine Sodium 125 mcg PO QDAC 04/19/17 Prochlorperazine [Compazine] 10 mg PO Q6H PRN 04/19/17 clonazePAM [Clonazepam] 1 mg PO BID 04/19/17 Objective - Vital Signs/Intake & Output Reviewed Vital Signs: Yes Vital Signs: Vital Signs x48h Temp Pulse Pulse Resp BP Pulse Ox 04/22/17 08:05 36.6 C 81 20 125/54 L 98 04/22/17 07:20 82 12 04/22/17 05:00 36.5 C 81 20 128/50 L 97 Intake & Output: Intake & Output 04/19/17 04/20/17 04/21/17 04/22/17 23:59 23:59 23:59 23:59 Intake Total 1700 5348.75 2270 460 Output Total 300 Balance 1400 5348.75 2270 460 - Objective General Appearance: positive: No acute distress, Alert Eyes Bilateral: positive: Normal inspection ENT: positive: ENT inspection nml, Pharynx nml, Dry mucous membranes Neck: positive: Nml inspection, Thyroid nml, No JVD, Trachea midline Respiratory: positive: Chest non-tender, No respiratory distress, Wheezes, Rhonchi Cardiovascular: positive: Irregularly irregular, Systolic murmur Peripheral Pulses: 1+ Radial (R), 1+ Radial (L) Abdomen: positive: Non-tender, Nml bowel sounds, Guarding, Hepatomegaly, Splenomegaly Back: positive: Nml inspection Skin: positive: Color nml, No rash, Warm, Dry, Pallor (mild jaundice) Extremities: positive: Non-tender, Full ROM, Pedal edema (bruising on left knee , lower leg.), Joint swelling Neurologic/Psychiatric: positive: Disoriented to time, Weakness, Sensory loss ( tearful), Depressed mood/affect Reflexes: Bicep (R): 2+, Bicep (L): 2+ - Lab Results Fish Bones: 04/21/17 05:25 04/21/17 05:25 Other Labs: Lab Results x24hrs 04/22/17 04/21/17 04/21/17 Range/Units 07:19 21:18 16:26 POC Whole Bld Glucose 163 H 344 H 339 H (70 - 100) mg/dL 04/21/17 Range/Units 11:15 POC Whole Bld Glucose 343 H (70 - 100) mg/dL - Diagnostic Imaging Diagnostic Imaging Results: positive: Final report reviewed Assessment/Plan - Problem List (1) Pancreatic cancer metastasized to liver Impression: Patient has been seeing [facility] oncology clinic and was first diagnosed earlier this year in the state of [place]. Life expectancy is unknown. Plan: Continued therapy as per [facility] clinic and palliative support with Lauren Townsend (2) Progressive focal motor weakness Impression: This has been a progressive problem as evidence by increased falls with injury and debility. Plan: PT/OT consulted after acute illness and has now signed off. Non-skid foot wear should be worn and a bed/chair alarm at all times since patient continues to be impulsive and unaware of the likelihood of a subsequent fall. (3) Frequent falls Impression: With injury to head, LUE and LLE. Bruising noted to left knee and extend to ankle/foot that is improving each day. Patient remains impulsive and looses awareness of surroundings at times. Plan: Bed or chair alarm for safety. PT/OT consulted after acute illness. Patient should be reminded to wear non-skid socks and to call for help since she remains unaware of her risk of falls. (4) Type II diabetes mellitus Impression: HgA1C was 7.6 on 04/20/17. Blood glucose on chemistry lab finding upon admit was over 400mg/dl. Suspect related to stress/illness. Blood sugars much improved today and were between . One high reading at lunch over 300mg/dl. Plan: Sliding scale insulin ordered with POC blood glucose checks. Started long -acting insulin at 15U at hs, will increase to 25U for tonight. (5) Dementia associated with other underlying disease Impression: Patient is tearful during her exam today about "where her life is going". She does not want to leave her sister. She lacks capacity to see the unsafe conditions associated with living alone. She seems very clear when talking about the traveling she has done in her life, but remains profoundly forgetful and a poor historian. Plan: Bed or chair alarm should be utilized. Visits from family/friends to reorient. We will continue to monitor labs.
[2017-04-22] MEDS: CELECOXIB 100 MG CAPSULE PO SCH (17:24)
[2017-04-22] MEDS: INSULIN GLARGINE 300 UNIT/3 ML PEN SUBQ SCH (21:07)
[2017-04-22] MEDS: TEMAZEPAM 15 MG CAPSULE PO PRN (23:58)
[2017-04-23] MEDS: ACETAMINOPHEN 325 MG TABLET PO PRN (01:33)
[2017-04-23] MEDS: oxyCODONE 5 MG TABLET PO PRN ×2 (04:11→21:24)
[2017-04-23] MEDS: PIPERACILLIN/TAZOBACTAM 4.5 GM in SODIUM CHLORIDE 0.9% MINIBAG 100 ML IV SCH ×3 (05:26→21:09)
[2017-04-23] MEDS: SODIUM CHLORIDE FLUSH 0.9% 10 ML SYRINGE IVP SCH ×3 (06:08→21:00)
[2017-04-23] MEDS: BUDESONIDE 0.5 MG/2 ML NEB INH SCH ×2 (07:30→21:10)
[2017-04-23] MEDS: FORMOTEROL FUMARATE NEB 20 MCG/2 ML INH SCH ×2 (07:30→21:10)
[2017-04-23] MEDS: IPRATROPIUM/ALBUTEROL 3 ML NEB INH PRN (07:30)
[2017-04-23] MEDS: FAMOTIDINE 20 MG TABLET PO SCH (08:02)
[2017-04-23] MEDS: clonazePAM 0.5 MG TABLET PO SCH ×2 (08:02→20:56)
[2017-04-23] MEDS: INSULIN ASPART 300 UNIT/3 ML PEN SUBQ SCH ×4 (08:02→20:56)
[2017-04-23] MEDS: CITALOPRAM 10 MG TABLET PO SCH (08:02)
--- NOTE | 2017-04-23 13:37 | PROVIDER PROGRESS NOTE ---
Subjective - Prog Note Date Prog Note Date: 04/23/17 Prog Note Time: 13:35 - Subjective Pt reports feeling: No change Subjective: Mary enjoyed her visit with her sister Sneha today and answered all questions appropriately. She denies SOB, chest pain N/V, headache or new cough. She was noted to be profoundly more confused this PM, suspected "sundowning", so Haldol was given per nursing. Last evening she was noted to have gone into another patient's room and had increased confusion. Current Medications - Current Medications Current Medications: Active Medications Generic Name Dose Route Start Last Admin Trade Name Freq PRN Reason Stop Dose Admin Acetaminophen 650 mg 04/19/17 19:59 04/23/17 01:33 Tylenol PO 650 mg Q4HR PRN Administration Pain or Fever > 38C (100.4F) Albuterol/Ipratropium 3 ml 04/20/17 19:00 04/23/17 07:30 Duoneb INH 3 ml RTQ4H PRN Administration Wheezing Budesonide 0.5 mg 04/20/17 09:00 04/23/17 07:30 Pulmicort INH 0.5 mg RTBID AMARILIS Administration Celecoxib 200 mg 04/19/17 17:00 04/22/17 17:24 Celebrex PO 200 mg DAILY@1700 AMARILIS Administration Citalopram Hydrobromide 40 mg 04/20/17 09:00 04/23/17 08:02 Celexa PO 40 mg DAILY AMARILIS Administration Clonazepam 1 mg 04/19/17 14:00 04/23/17 08:02 Klonopin PO 1 mg BID AMARILIS Administration Famotidine 20 mg 04/19/17 12:00 04/23/17 08:02 Pepcid PO 20 mg DAILY AMARILIS Administration Formoterol Fumarate 20 mcg 04/20/17 09:00 04/23/17 07:30 Perforomist INH 20 mcg RTBID AMRAILIS Administration Hydromorphone HCl 0.5 mg 04/19/17 11:49 Dilaudid Inj Syringe IVP Q2H PRN Pain 8 to 10 Piperacillin Sod/Tazobactam 100 mls @ 25 mls/hr 04/19/17 21:00 04/23/17 13:07 Sod 4.5 gm/ Sodium Chloride IV 25 mls/hr Q8H AMARILIS Administration Insulin Aspart 3 - 11 unit 04/20/17 21:00 04/23/17 11:55 Novolog SUBQ 7 unit 0800,1200,1700,2100 AMARILIS Administration Protocol Insulin Glargine 25 unit 04/23/17 21:00 Lantus Solostar SUBQ QPM AMARILIS Olanzapine 10 mg 04/19/17 13:34 04/19/17 18:49 Zyprexa Odt TL 10 mg DAILY PRN Administration Agitation Oxycodone HCl 5 mg 04/19/17 13:34 04/23/17 04:11 Roxicodone PO 5 mg Q4H PRN Administration PAIN Prochlorperazine Maleate 10 mg 04/19/17 13:34 Compazine PO Q6H PRN Nausea / Vomiting Sodium Chloride 10 ml 04/19/17 11:49 04/20/17 05:12 Normal Saline Flush 0.9% IVP 10 ml PRN PRN Administration NEEDED PER PROVIDER ORDERS Sodium Chloride 10 ml 04/19/17 14:00 04/23/17 13:07 Normal Saline Flush 0.9% IVP 10 ml Q8HR AMARILIS Administration Temazepam 15 mg 04/19/17 11:49 04/22/17 23:58 Restoril PO 15 mg QPM PRN Administration Insomnia Rivaroxaban [Xarelto] 20 mg PO DAILY@1700 03/31/17 Zolpidem [Ambien] 5 mg PO QPM PRN 03/31/17 metFORMIN [Glucophage] 1,000 mg PO BIDWM 03/31/17 oxyCODONE [Roxicodone] 5 mg PO Q4H PRN 04/16/17 Celecoxib [CeleBREX] 200 mg PO DAILY@1700 04/19/17 Citalopram [CeleXA] 40 mg PO DAILY 04/19/17 Insulin Aspart [Novolog Flexpen] 2 - 9 units SUBQ DAILY 04/19/17 Insulin Degludec [Tresiba Flextouch U-100] 45 units SUBQ DAILY 04/19/17 Levothyroxine Sodium 125 mcg PO QDAC 04/19/17 Prochlorperazine [Compazine] 10 mg PO Q6H PRN 04/19/17 clonazePAM [Clonazepam] 1 mg PO BID 04/19/17 Objective - Vital Signs/Intake & Output Reviewed Vital Signs: Yes Vital Signs: Vital Signs x48h Temp Pulse Pulse Resp BP BP Pulse Ox 04/23/17 13:00 36.5 C 69 16 133/62 H 100 04/23/17 08:03 36.4 C L 65 16 119/70 98 04/23/17 07:32 84 14 Intake & Output: Intake & Output 04/20/17 04/21/17 04/22/17 04/23/17 23:59 23:59 23:59 23:59 Intake Total 5348.75 2270 1550 640 Balance 5348.75 2270 1550 640 - Objective General Appearance: positive: No acute distress, Alert Eyes Bilateral: positive: Normal inspection ENT: positive: ENT inspection nml, Pharynx nml, Dry mucous membranes Neck: positive: Nml inspection, Thyroid nml, No JVD, Trachea midline Respiratory: positive: Chest non-tender, No respiratory distress, Wheezes Cardiovascular: positive: Systolic murmur Abdomen: positive: Nml bowel sounds, Guarding Back: positive: Nml inspection Skin: positive: Color nml, No rash, Warm, Dry Extremities: positive: Non-tender, Full ROM Neurologic/Psychiatric: positive: Disoriented to time, Weakness, Sensory loss - Lab Results Fish Bones: 04/23/17 18:07 04/23/17 18:07 Other Labs: Lab Results x24hrs 04/23/17 04/23/17 04/22/17 Range/Units 11:28 07:38 20:34 POC Whole Bld Glucose 268 H 179 H 190 H (70 - 100) mg/dL 04/22/17 Range/Units 16:29 POC Whole Bld Glucose 128 H (70 - 100) mg/dL - Diagnostic Imaging Diagnostic Imaging Results: positive: Final report reviewed Assessment/Plan - Problem List (1) Pancreatic cancer metastasized to liver Impression: Per Dr Alexi MD Oncology: 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 A liver node biopsy performed on 12/27/16 confirmed adenocarcinoma. Plan: Continued palliative chemotherapy through Right chest port with gemcitabine and Abraxane IV per MAC. Oncology [employer] E[employer]IPMENT SERVICER visited today to share plan of care, which is continued monitoring. Patient was supposed to begin another portion of chemo this week. They will keep us informed as to the next course of action expected. (2) Progressive focal motor weakness Impression: This has been a progressive problem as evidence by increased falls with injury and debility. Plan: PT/OT consulted after acute illness and has now signed off. Non-skid foot wear should be worn and a bed/chair alarm at all times since patient continues to be impulsive and unaware of the likelihood of a subsequent fall. PT evaluation was ordered today to do a home safety evaluation. They noted that she is able to ambulate with only supervision, although she displays lack of awareness and judgment. At night patient has been exhibiting signs of "sundowning" which may lead to day time weakness. (3) Frequent falls Impression: With injury to head, LUE and LLE injuries noted. Bruising noted to left knee and extend to ankle/foot that is improving each day. Patient remains impulsive and looses awareness of surroundings at times. Plan: Bed or chair alarm for safety. PT/OT consulted after acute illness. Patient should be reminded to wear non-skid socks and to call for help since she remains unaware of her risk of falls. PT completed a home safety evaluation and note that she has a good steady gait, but may need supervision if living alone. (4) Type II diabetes mellitus Impression: HgA1C was 7.6 on 04/20/17. Blood glucose on chemistry lab finding upon admit was over 400mg/dl. Suspect related to stress/illness. Blood sugars much improved today and were between 179-301. Plan: Sliding scale insulin ordered with POC blood glucose checks. Started long -acting insulin at 15U at hs, will increase to 25U for tonight. Qualifiers: Diabetes mellitus complication status: with ophthalmic complications Diabetes mellitus macular edema: with macular edema Diabetes mellitus rat exterminator insulin use: with rat exterminator use Laterality: bilateral (5) Dementia associated with other underlying disease Impression: Patient has increased confusion, suspect Sundowning. Vitamin B12 level was elevated above 1300. Normal [place] level. Plan: Haldol, zyprex and temazepam can be used for sleep.
[2017-04-23] MEDS: HALOPERIDOL 1 MG TABLET PO PRN ×2 (18:14→21:24)
[2017-04-23] MEDS: CELECOXIB 100 MG CAPSULE PO SCH (18:17)
[2017-04-23 18:38] LABS: HCT - HEMATOCRIT 26.1 % (37.0-47.0); HGB - HEMOGLOBIN 8.5 g/dL (12.0-16.0); MEAN CORPUSCULAR HEMOGLOBIN 32.4 pg (27.0-31.0); MEAN CORPUSCULAR HGB CONC 32.4 g/dL (32.0-36.0); MEAN CORPUSCULAR VOLUME 99.9 fL (81.0-99.0); MEAN PLATELET VOLUME 9.7 fL (7.9-10.8); RED BLOOD COUNT 2.62 10^6/uL (4.20-5.40); RED CELL DISTRIBUTION WIDTH 15.3 % (12.0-15.0); WHITE BLOOD COUNT 2.7 x10^3/uL (4.8-10.8)
[2017-04-23 18:41] LABS: ALBUMIN/GLOBULIN RATIO 0.7 (1.0-2.2); BILIRUBIN,TOTAL 0.4 mg/dL (0.2-1.0); CALCIUM 8.4 mg/dL (8.5-10.3); CREATININE 1.1 mg/dL (0.4-1.0); POTASSIUM 3.5 mmol/L (3.5-5.0); TOTAL PROTEIN 6.3 g/dL (6.7-8.2)
[2017-04-23] MEDS: INSULIN GLARGINE 300 UNIT/3 ML PEN SUBQ SCH (20:56)
[2017-04-23] MEDS ORDERED: LORazepam 2 MG/ML SYRINGE IVP STA (21:53)
[2017-04-23] MEDS ORDERED: LORazepam 2 MG/ML SYRINGE ONE (22:01)
[2017-04-24] MEDS: oxyCODONE 5 MG TABLET PO PRN ×3 (02:06→20:24)
[2017-04-24] MEDS: TEMAZEPAM 15 MG CAPSULE PO PRN (02:07)
[2017-04-24] MEDS: PIPERACILLIN/TAZOBACTAM 4.5 GM in SODIUM CHLORIDE 0.9% MINIBAG 100 ML IV SCH ×3 (05:26→20:39)
[2017-04-24] MEDS: SODIUM CHLORIDE FLUSH 0.9% 10 ML SYRINGE IVP SCH ×3 (05:28→17:18)
[2017-04-24 05:37] LABS: HCT - HEMATOCRIT 21.2 % (37.0-47.0); MEAN CORPUSCULAR HEMOGLOBIN 32.7 pg (27.0-31.0); MEAN CORPUSCULAR VOLUME 99.1 fL (81.0-99.0); MEAN PLATELET VOLUME 8.3 fL (7.9-10.8); RED BLOOD COUNT 2.14 10^6/uL (4.20-5.40); WHITE BLOOD COUNT 2.1 x10^3/uL (4.8-10.8)
[2017-04-24 05:53] LABS: CALCIUM 8.2 mg/dL (8.5-10.3); POTASSIUM 3.5 mmol/L (3.5-5.0)
[2017-04-24] MEDS: INSULIN ASPART 300 UNIT/3 ML PEN SUBQ SCH ×4 (07:43→20:45)
[2017-04-24] MEDS: FORMOTEROL FUMARATE NEB 20 MCG/2 ML INH SCH ×2 (07:56→20:29)
[2017-04-24] MEDS: BUDESONIDE 0.5 MG/2 ML NEB INH SCH ×2 (07:56→20:30)
[2017-04-24] MEDS: clonazePAM 0.5 MG TABLET PO SCH ×2 (08:30→20:24)
[2017-04-24] MEDS: CITALOPRAM 10 MG TABLET PO SCH (08:30)
[2017-04-24] MEDS: LEVOTHYROXINE 125 MCG TABLET PO SCH (08:30)
[2017-04-24] MEDS: FAMOTIDINE 20 MG TABLET PO SCH (08:30)
--- NOTE | 2017-04-24 14:10 | PROVIDER PROGRESS NOTE ---
Subjective - Prog Note Date Prog Note Date: 04/24/17 - Subjective Pt reports feeling: Improved Subjective: pt report she is feeling some better, denies chest pain, SOB, headache. Current Medications - Current Medications Current Medications: Active Medications Acetaminophen (Tylenol) 650 mg PO Q4HR PRN PRN Reason: Pain or Fever > 38C (100.4F) Last Admin: 04/23/17 01:33 Dose: 650 mg Albuterol/Ipratropium (Duoneb) 3 ml INH RTQ4H PRN PRN Reason: Wheezing Last Admin: 04/23/17 07:30 Dose: 3 ml Budesonide (Pulmicort) 0.5 mg INH RTBID AMARILIS Last Admin: 04/24/17 07:56 Dose: 0.5 mg Celecoxib (Celebrex) 200 mg PO DAILY@1700 [facility] Last Admin: 04/23/17 18:17 Dose: 200 mg Citalopram Hydrobromide (Celexa) 40 mg PO DAILY [facility] Last Admin: 04/24/17 08:30 Dose: 40 mg Clonazepam (Klonopin) 1 mg PO BID [facility] Last Admin: 04/24/17 08:30 Dose: 1 mg Famotidine (Pepcid) 20 mg PO DAILY [facility] Last Admin: 04/24/17 08:30 Dose: 20 mg Formoterol Fumarate (Perforomist) 20 mcg INH RTBID [facility] Last Admin: 04/24/17 07:56 Dose: 20 mcg Haloperidol (Haldol) 1 mg PO Q4H PRN PRN Reason: Agitation Last Admin: 04/23/17 21:24 Dose: 1 mg Hydromorphone HCl (Dilaudid Inj Syringe) 0.5 mg IVP Q2H PRN PRN Reason: Pain 8 to 10 Piperacillin Sod/Tazobactam (Sod 4.5 gm/ Sodium Chloride) 100 mls @ 25 mls/hr IV Q8H [facility] Last Admin: 04/24/17 13:00 Dose: 25 mls/hr Insulin Aspart (Novolog) 3 - 11 unit SUBQ 0800,1200,1700,2100 AMARILIS PRN Reason: Protocol Last Admin: 04/24/17 12:07 Dose: 5 unit Insulin Glargine (Lantus Solostar) 25 unit SUBQ QPM [facility] Last Admin: 04/23/17 20:56 Dose: 25 unit Levothyroxine Sodium (Synthroid) 125 mcg PO QDAC [facility]ARILIS Last Admin: 04/24/17 08:30 Dose: 125 mcg Olanzapine (Zyprexa Odt) 10 mg TL DAILY PRN PRN Reason: Agitation Last Admin: 04/19/17 18:49 Dose: 10 mg Oxycodone HCl (Roxicodone) 5 mg PO Q4H PRN PRN Reason: PAIN Last Admin: 04/24/17 02:06 Dose: 5 mg Prochlorperazine Maleate (Compazine) 10 mg PO Q6H PRN PRN Reason: Nausea / Vomiting Sodium Chloride (Normal Saline Flush 0.9%) 10 ml IVP PRN PRN PRN Reason: NEEDED PER PROVIDER ORDERS Last Admin: 04/20/17 05:12 Dose: 10 ml Sodium Chloride (Normal Saline Flush 0.9%) 10 ml IVP Q8HR AMARILIS Last Admin: 04/24/17 13:59 Dose: Not Given Temazepam (Restoril) 15 mg PO QPM PRN PRN Reason: Insomnia Last Admin: 04/24/17 02:07 Dose: 15 mg Rivaroxaban [Xarelto] 20 mg PO DAILY@1700 03/31/17 Zolpidem [Ambien] 5 mg PO QPM PRN 03/31/17 metFORMIN [Glucophage] 1,000 mg PO BIDWM 03/31/17 oxyCODONE [Roxicodone] 5 mg PO Q4H PRN 04/16/17 Celecoxib [CeleBREX] 200 mg PO DAILY@1700 04/19/17 Citalopram [CeleXA] 40 mg PO DAILY 04/19/17 Insulin Aspart [Novolog Flexpen] 2 - 9 units SUBQ DAILY 04/19/17 Insulin Degludec [Tresiba Flextouch U-100] 45 units SUBQ DAILY 04/19/17 Levothyroxine Sodium 125 mcg PO QDAC 04/19/17 Prochlorperazine [Compazine] 10 mg PO Q6H PRN 04/19/17 clonazePAM [Clonazepam] 1 mg PO BID 04/19/17 Objective - Vital Signs/Intake & Output Reviewed Vital Signs: Yes Vital Signs: Vital Signs x48h Temp Pulse Pulse Resp BP Pulse Ox 04/24/17 13:00 36.6 C 70 18 109/44 L 95 04/24/17 08:00 74 16 04/24/17 07:41 36.3 C L 62 18 94/52 L 96 Intake & Output: Intake & Output 04/21/17 04/22/17 04/23/17 04/24/17 23:59 23:59 23:59 23:59 Intake Total 2270 1550 1090 720 Balance 2270 1550 1090 720 - Objective General Appearance: positive: No acute distress, Alert. negative: Lethargic Eyes Bilateral: positive: Normal inspection, PERRL, No lid inflammation, Conjunctivae nml ENT: positive: ENT inspection nml, Pharynx nml, No signs of dehydration. negative: Purulent nasal drainage, Pharyngeal erythema, Oral lesions Neck: positive: Nml inspection, Thyroid nml, Trachea midline. negative: Thyromegaly, Lymphadenopathy (R), Lymphadenopathy (L), Stiff neck, Carotid bruit , Swelling/bruising, Tracheal deviation Respiratory: positive: Chest non-tender, No respiratory distress, Breath sounds nml. negative: Wheezes, Rales, Rhonchi Cardiovascular: positive: Regular rate & rhythm, No murmur. negative: Irregularly irregular, Extrasystoles, Tachycardia, Bradycardia, Systolic murmur , Diastolic murmur Peripheral Pulses: 2+ Radial (R), 2+ Radial (L), 2+ Dorsalis pedis (R), 2+ Dorsalis pedis (L) Abdomen: positive: Non-tender, Nml bowel sounds, No distention. negative: Tenderness, Guarding, Rebound Back: positive: Nml inspection. negative: CVA tenderness (R), CVA tenderness (L ) Skin: positive: Color nml, No rash, Warm, Dry. negative: Cyanosis, Diaphoresis , Pallor, Decubitus Extremities: positive: Non-tender, Full ROM, Nml appearance. negative: Calf tenderness, Chrystal's sign/cords Neurologic/Psychiatric: positive: Sensation nml, Disoriented to place, Disoriented to time, Weakness. negative: Disoriented to person, Facial droop, Slurred/abnml speech, Depressed mood/affect - Lab Results Fish Bones: 04/24/17 05:00 04/24/17 05:00 Other Labs: Lab Results x24hrs 04/24/17 04/24/17 04/24/17 Range/Units 11:33 07:58 07:30 WBC (4.8-10.8) x10^3/uL RBC (4.20-5.40) 10^6/uL Hgb (12.0-16.0) g/dL Hct (37.0-47.0) % MCV (81.0-99.0) fL MCH (27.0-31.0) pg MCHC (32.0-36.0) g/dL RDW (12.0-15.0) % Plt Count (130-450) 10^3/uL MPV (7.9-10.8) fL Sodium (135-145) mmol/L Potassium (3.5-5.0) mmol/L Chloride (101-111) mmol/L Carbon Dioxide (21-32) mmol/L Anion Gap (6-13) BUN (6-20) mg/dL Creatinine (0.4-1.0) mg/dL Estimated GFR (MDRD) (>89) Glucose (70-100) mg/dL POC Whole Bld Glucose 182 H 91 (70 - 100) mg/dL Calcium (8.5-10.3) mg/dL Total Bilirubin (0.2-1.0) mg/dL AST (10-42) IU/L ALT (10-60) IU/L Alkaline Phosphatase (42-121) IU/L Ammonia (7-35) umol/L B-Natriuretic Peptide (5-100) pg/mL Total Protein (6.7-8.2) g/dL Albumin (3.2-5.5) g/dL Globulin (2.1-4.2) g/dL Albumin/Globulin Ratio (1.0-2.2) Vitamin B12 (180-914) pg/mL TSH (0.34-5.60) uIU/mL Blood Type A POSITIVE Blood Type Recheck Antibody Screen NEGATIVE Crossmatch IS Only See Detail 04/24/17 04/24/17 04/24/17 Range/Units 05:00 05:00 05:00 WBC (4.8-10.8) x10^3/uL RBC (4.20-5.40) 10^6/uL Hgb (12.0-16.0) g/dL Hct (37.0-47.0) % MCV (81.0-99.0) fL MCH (27.0-31.0) pg MCHC (32.0-36.0) g/dL RDW (12.0-15.0) % Plt Count (130-450) 10^3/uL MPV (7.9-10.8) fL Sodium 138 (135-145) mmol/L Potassium 3.5 (3.5-5.0) mmol/L Chloride 107 (101-111) mmol/L Carbon Dioxide 24 (21-32) mmol/L Anion Gap 7.0 (6-13) BUN 8 (6-20) mg/dL Creatinine 1.0 (0.4-1.0) mg/dL Estimated GFR (MDRD) 55 L (>89) Glucose 102 H (70-100) mg/dL POC Whole Bld Glucose (70 - 100) mg/dL Calcium 8.2 L (8.5-10.3) mg/dL Total Bilirubin (0.2-1.0) mg/dL AST (10-42) IU/L ALT (10-60) IU/L Alkaline Phosphatase (42-121) IU/L Ammonia (7-35) umol/L B-Natriuretic Peptide 127 H (5-100) pg/mL Total Protein (6.7-8.2) g/dL Albumin (3.2-5.5) g/dL Globulin (2.1-4.2) g/dL Albumin/Globulin Ratio (1.0-2.2) Vitamin B12 (180-914) pg/mL TSH (0.34-5.60) uIU/mL Blood Type Blood Type Recheck A POSITIVE Antibody Screen Crossmatch IS Only 04/24/17 04/24/17 04/23/17 Range/Units 05:00 05:00 20:51 WBC 2.1 L (4.8-10.8) x10^3/uL RBC 2.14 L (4.20-5.40) 10^6/uL Hgb 7.0 L* (12.0-16.0) g/dL Hct 21.2 L (37.0-47.0) % MCV 99.1 H (81.0-99.0) fL MCH 32.7 H (27.0-31.0) pg MCHC 33.0 (32.0-36.0) g/dL RDW 15.0 (12.0-15.0) % Plt Count 15 L* (130-450) 10^3/uL MPV 8.3 (7.9-10.8) fL Sodium (135-145) mmol/L Potassium (3.5-5.0) mmol/L Chloride (101-111) mmol/L Carbon Dioxide (21-32) mmol/L Anion Gap (6-13) BUN (6-20) mg/dL Creatinine (0.4-1.0) mg/dL Estimated GFR (MDRD) (>89) Glucose (70-100) mg/dL POC Whole Bld Glucose 301 H (70 - 100) mg/dL Calcium (8.5-10.3) mg/dL Total Bilirubin (0.2-1.0) mg/dL AST (10-42) IU/L ALT (10-60) IU/L Alkaline Phosphatase (42-121) IU/L Ammonia (7-35) umol/L B-Natriuretic Peptide (5-100) pg/mL Total Protein (6.7-8.2) g/dL Albumin (3.2-5.5) g/dL Globulin (2.1-4.2) g/dL Albumin/Globulin Ratio (1.0-2.2) Vitamin B12 (180-914) pg/mL TSH 46.19 H (0.34-5.60) uIU/mL Blood Type Blood Type Recheck Antibody Screen Crossmatch IS Only 04/23/17 04/23/17 04/23/17 Range/Units 18:07 18:07 18:07 WBC (4.8-10.8) x10^3/uL RBC (4.20-5.40) 10^6/uL Hgb (12.0-16.0) g/dL Hct (37.0-47.0) % MCV (81.0-99.0) fL MCH (27.0-31.0) pg MCHC (32.0-36.0) g/dL RDW (12.0-15.0) % Plt Count (130-450) 10^3/uL MPV (7.9-10.8) fL Sodium 133 L (135-145) mmol/L Potassium 3.5 (3.5-5.0) mmol/L Chloride 101 (101-111) mmol/L Carbon Dioxide 24 (21-32) mmol/L Anion Gap 8.0 (6-13) BUN 9 (6-20) mg/dL Creatinine 1.1 H (0.4-1.0) mg/dL Estimated GFR (MDRD) 50 L (>89) Glucose 336 H (70-100) mg/dL POC Whole Bld Glucose (70 - 100) mg/dL Calcium 8.4 L (8.5-10.3) mg/dL Total Bilirubin 0.4 (0.2-1.0) mg/dL AST 56 H (10-42) IU/L ALT 30 (10-60) IU/L Alkaline Phosphatase 221 H (42-121) IU/L Ammonia 10.0 (7-35) umol/L B-Natriuretic Peptide (5-100) pg/mL Total Protein 6.3 L (6.7-8.2) g/dL Albumin 2.5 L (3.2-5.5) g/dL Globulin 3.8 (2.1-4.2) g/dL Albumin/Globulin Ratio 0.7 L (1.0-2.2) Vitamin B12 1372 H (180-914) pg/mL TSH (0.34-5.60) uIU/mL Blood Type Blood Type Recheck Antibody Screen Crossmatch IS Only 04/23/17 04/23/17 Range/Units 18:07 16:29 WBC 2.7 L (4.8-10.8) x10^3/uL RBC 2.62 L (4.20-5.40) 10^6/uL Hgb 8.5 L (12.0-16.0) g/dL Hct 26.1 L (37.0-47.0) % MCV 99.9 H (81.0-99.0) fL MCH 32.4 H (27.0-31.0) pg MCHC 32.4 (32.0-36.0) g/dL RDW 15.3 H (12.0-15.0) % Plt Count 25 L* (130-450) 10^3/uL MPV 9.7 (7.9-10.8) fL Sodium (135-145) mmol/L Potassium (3.5-5.0) mmol/L Chloride (101-111) mmol/L Carbon Dioxide (21-32) mmol/L Anion Gap (6-13) BUN (6-20) mg/dL Creatinine (0.4-1.0) mg/dL Estimated GFR (MDRD) (>89) Glucose (70-100) mg/dL POC Whole Bld Glucose 307 H (70 - 100) mg/dL Calcium (8.5-10.3) mg/dL Total Bilirubin (0.2-1.0) mg/dL AST (10-42) IU/L ALT (10-60) IU/L Alkaline Phosphatase (42-121) IU/L Ammonia (7-35) umol/L B-Natriuretic Peptide (5-100) pg/mL Total Protein (6.7-8.2) g/dL Albumin (3.2-5.5) g/dL Globulin (2.1-4.2) g/dL Albumin/Globulin Ratio (1.0-2.2) Vitamin B12 (180-914) pg/mL TSH (0.34-5.60) uIU/mL Blood Type Blood Type Recheck Antibody Screen Crossmatch IS Only Assessment/Plan - Problem List (1) Anemia Impression: (1) anemia, today HGB 7, pt is asymptomatic, HR without changing, no SOB, no chest pain. Pt denies any acute GI bleeding, vomiting. pt had a chemotherapy 7 days ago, plus pt had stage 4 of pancreatic cancer. continue closely monitor pt's HGB and HCT, will transfuse of blood as clinical needed lab monitor, vital, tele monitor pt cross match ordered. (2) thrombocytopenia today pt's plt is 15, significant lower, but pt denies any acute bleeding will closely monitor pt if any bleeding, with lab, vital, tele, nurse around cross match, will transfusion plasma as needed lab monitor, vital, tele, nurse monitor pt (3) Pancreatic cancer metastasized to liver Impression: Continued palliative, hold chemotherapy since pt has significant reverse reaction from chemotherapy continue palliative care. Lauren discussed with pt and pt's family, pt is still no making the final hospice care decision yet. 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 A liver node biopsy performed on 12/27/16 confirmed adenocarcinoma. Plan: Continued palliative chemotherapy through Right chest port with gemcitabine and Abraxane IV per MAC. Oncology [employer] TESTER visited today to share plan of care, which is continued monitoring. Patient was supposed to begin another portion of chemo this week. They will keep us informed as to the next course of action expected. (4) Progressive focal motor weakness Impression: weakness, continue PT/OT fall precaution This has been a progressive problem as evidence by increased falls with injury and debility. Plan: PT/OT consulted after acute illness and has now signed off. Non-skid foot wear should be worn and a bed/chair alarm at all times since patient continues to be impulsive and unaware of the likelihood of a subsequent fall. PT evaluation was ordered today to do a home safety evaluation. They noted that she is able to ambulate with only supervision, although she displays lack of awareness and judgment. At night patient has been exhibiting signs of "sundowning" which may lead to day time weakness. (5) Frequent falls Impression: continue current treatment closely monitor, fall precaution With injury to head, LUE and LLE injuries noted. Bruising noted to left knee and extend to ankle/foot that is improving each day. Patient remains impulsive and looses awareness of surroundings at times. Plan: Bed or chair alarm for safety. PT/OT consulted after acute illness. Patient should be reminded to wear non-skid socks and to call for help since she remains unaware of her risk of falls. PT completed a home safety evaluation and note that she has a good steady gait, but may need supervision if living alone. (6) Type II diabetes mellitus Impression: stable, continue slide scale, hypoglycemia protocol HgA1C was 7.6 on 04/20/17. Blood glucose on chemistry lab finding upon admit was over 400mg/dl. Suspect related to stress/illness. Blood sugars much improved today and were between 179-301. Plan: Sliding scale insulin ordered with POC blood glucose checks. Started long -acting insulin at 15U at hs, will increase to 25U for tonight. (7) Dementia associated with other underlying disease Impression: Patient has increased confusion, suspect Sundowning. Vitamin B12 level was elevated above 1300. Normal [place] level. (8) hypothyroidism TSH value is high reconciliated Levothyroxine to pt
[2017-04-24] MEDS: CELECOXIB 100 MG CAPSULE PO SCH (17:14)
--- NOTE | 2017-04-24 17:16 | CONSULTATION NOTE ---
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 She was originally diagnosed 12/27/2016 with biopsy of the liver. She has been receiving gemcitabine and Abraxane, she last received a dose at the [facility] on 7. She was having increased falls, increased confusion, and significant mental status changes particularly in the evening hours. This is making it unmanageable at home, and her sister was white quite concerned. She was admitted on 04 19 for increasing confusion, she has been treated with antibiotics, she is continuing to present is pancytopenic and is at her eduardo. Since being here she still has had fluctuating mental status, confusion, hallucinations, and delusions. Her complex psychosocial situation has made it even more difficult, as they have relocated from [place] and are essentially homeless. She does have a rented room but she has to give up by 05/15. Her sister Sneha is her caregiver, this came about when she went back early fall to help her with her multiple hospitalizations and increasing difficulties tolerating the treatment then. She is continued to have complications related to her underlying comorbidities, dementia with behavioral disturbances, and side effects from chemotherapy. I meeting with Sneha and Fatimah today to speak about goals of care, this is much challenge as patient does not present with decision-making capacity though she is more lucid than she has been. Social History - Living Situation Living arrangement: Unknown (Currently with only a couple weeks left on rented room) Living Situation: With family (Sneha sister has been very committed in trying to establish a plan of care that is workable for them both, she came to the [place] to live with her best friend. She did not expect patient would need this much assistance and would continue to decline) Medications/Allergies - Medications Active Medication List: Active Medications Acetaminophen (Tylenol) 650 mg PO Q4HR PRN PRN Reason: Pain or Fever > 38C (100.4F) Last Admin: 04/23/17 01:33 Dose: 650 mg Albuterol/Ipratropium (Duoneb) 3 ml INH RTQ4H PRN PRN Reason: Wheezing Last Admin: 04/23/17 07:30 Dose: 3 ml Budesonide (Pulmicort) 0.5 mg INH RTBID [facility] Last Admin: 04/24/17 07:56 Dose: 0.5 mg Celecoxib (Celebrex) 200 mg PO DAILY@1700 [facility] Last Admin: 04/23/17 18:17 Dose: 200 mg Citalopram Hydrobromide (Celexa) 40 mg PO DAILY [facility] Last Admin: 04/24/17 08:30 Dose: 40 mg Clonazepam (Klonopin) 1 mg PO BID [facility] Last Admin: 04/24/17 08:30 Dose: 1 mg Famotidine (Pepcid) 20 mg PO DAILY [facility] Last Admin: 04/24/17 08:30 Dose: 20 mg Formoterol Fumarate (Perforomist) 20 mcg INH RTBID [facility] Last Admin: 04/24/17 07:56 Dose: 20 mcg Haloperidol (Haldol) 1 mg PO Q4H PRN PRN Reason: Agitation Last Admin: 04/23/17 21:24 Dose: 1 mg Hydromorphone HCl (Dilaudid Inj Syringe) 0.5 mg IVP Q2H PRN PRN Reason: Pain 8 to 10 Piperacillin Sod/Tazobactam (Sod 4.5 gm/ Sodium Chloride) 100 mls @ 25 mls/hr IV Q8H [facility] Last Admin: 04/24/17 13:00 Dose: 25 mls/hr Insulin Aspart (Novolog) 3 - 11 unit SUBQ 0800,1200,1700,2100 [facility] PRN Reason: Protocol Last Admin: 04/24/17 12:07 Dose: 5 unit Insulin Glargine (Lantus Solostar) 25 unit SUBQ QPM [facility] Last Admin: 04/23/17 20:56 Dose: 25 unit Levothyroxine Sodium (Synthroid) 125 mcg PO QDAC [facility] Last Admin: 04/24/17 08:30 Dose: 125 mcg Olanzapine (Zyprexa Odt) 10 mg TL DAILY PRN PRN Reason: Agitation Last Admin: 04/19/17 18:49 Dose: 10 mg Oxycodone HCl (Roxicodone) 5 mg PO Q4H PRN PRN Reason: PAIN Last Admin: 04/24/17 15:41 Dose: 5 mg Prochlorperazine Maleate (Compazine) 10 mg PO Q6H PRN PRN Reason: Nausea / Vomiting Sodium Chloride (Normal Saline Flush 0.9%) 10 ml IVP PRN PRN PRN Reason: NEEDED PER PROVIDER ORDERS Last Admin: 04/20/17 05:12 Dose: 10 ml Sodium Chloride (Normal Saline Flush 0.9%) 10 ml IVP Q8HR [facility] Last Admin: 04/24/17 13:59 Dose: Not Given Temazepam (Restoril) 15 mg PO QPM PRN PRN Reason: Insomnia Last Admin: 04/24/17 02:07 Dose: 15 mg Rivaroxaban [Xarelto] 20 mg PO DAILY@1700 03/31/17 Zolpidem [Ambien] 5 mg PO QPM PRN 03/31/17 metFORMIN [Glucophage] 1,000 mg PO BIDWM 03/31/17 oxyCODONE [Roxicodone] 5 mg PO Q4H PRN 04/16/17 Celecoxib [CeleBREX] 200 mg PO DAILY@1700 04/19/17 Citalopram [CeleXA] 40 mg PO DAILY 04/19/17 Insulin Aspart [Novolog Flexpen] 2 - 9 units SUBQ DAILY 04/19/17 Insulin Degludec [Tresiba Flextouch U-100] 45 units SUBQ DAILY 04/19/17 Levothyroxine Sodium 125 mcg PO QDAC 04/19/17 Prochlorperazine [Compazine] 10 mg PO Q6H PRN 04/19/17 clonazePAM [Clonazepam] 1 mg PO BID 04/19/17 - Allergies Allergies/Adverse Reactions: Allergies Allergy/AdvReac Type Severity Reaction Status Date / Time Sulfa (Sulfonamide Allergy Unknown Verified 04/16/17 10:41 Antibiotics) Review of Systems - Constitutional Constitutional: reports: Fatigue - Eyes Eyes: reports: Corrective lenses - Cardiovascular Cardiovascular: reports: Decr. exercise tolerance - Respiratory Respiratory: reports: SOB with exertion - Gastrointestinal Gastrointestinal: denies: Nausea - Genitourinary Genitourinary: reports: Incontinence - Musculoskeletal Musculoskeletal: reports: Muscle weakness - Integumentary Integumentary: reports: Hair changes (alopecia) - Neurological Neurological: reports: General weakness, Memory problems. denies: Headache - Psychiatric Psychiatric: reports: Anxiety, Delusions, Hallucinations, Behavior disturbances - Endocrine Endocrine: reports: Hypothyroidism - Hematologic/Lymphatic Hematologic/Lymphatic: reports: Anemia, Recurrent infections - All Other Systems All Other Systems: reports: Reviewed and negative Physical Exam - Vital Signs Vital Signs: Vital Signs x48h Temp Pulse Resp BP Pulse Ox 04/24/17 15:15 36.7 C 75 20 134/63 H 99 04/24/17 13:00 36.6 C 70 18 109/44 L 95 - Physical Exam General Appearance: positive: Mild distress Eyes Bilateral: positive: Normal inspection ENT: positive: No signs of dehydration Neck: positive: Trachea midline Respiratory: positive: No respiratory distress Abdomen: positive: Soft Skin: positive: Dryness Extremities: positive: No pedal edema Neurologic/Psychiatric: positive: Disoriented to person, Disoriented to place, Disoriented to time, Depressed mood/affect Palliative Care - POLST Patient has POLST: Yes POLST Status: Limited Interventions Pain: No pain Tiredness/Fatigue: Moderate (4-6) Drowsiness/Sedation: Comment (reports sleeping "hard") Sleep: Variable sleep pattern Feelings of wellbeing/Perceived Quality of Life: Poor, Worsening - Palliative Care Discussion: Met with patient and sister Sneha, after speaking to Dr. Truong.Expressed my concerns to Dr. Truong patient now pancytopenic again, has tolerated treatment poorly, discuss dose reduction versus just supportive care. He does report hospice is definitely an appropriate choice at this point in time and would support this for her overall goals of care. Patient does Have some awareness of her state of confusion, she reports "she fell into the twilight zone". She does admit to hallucinations, she still is difficult to refocus and stay oriented, unclear if she does recognize she is in the hospital. She is able to engage and be redirected by her sister, and did participate at some level particularly around value statements. She is with awareness of the precarious stenosis of her situation, but is unable to really present realistic information are present with problem solving that is realistic in the context of coming up with a long-term plan. Did express my concern, that she and her sister have a safe plan. As to what she worries about most, "worry about her". Reviewed in the continuum of care, her treatment is only palliative in nature, and has continued to present with challenges, and now with another hospitalization. Patient reports she is aware of her condition, but in a way it does not matter anyway, but is unable to communicate any memory of the last several hours nor the last several days. I did introduce considering transitioning to focusing on supportive care and comfort only, introducing the concept of hospice. I reiterated at least twice that this meant no further chemotherapy, and that the hospice team would be available to support her and her sister and what ever time she had left with focusing on quality of life. As far as decision-making capacity, patient was aware her able to identify choices put before her, including continuing on treatment with palliative intent , versus focus on comfort and transition to hospice. Again the bigger concern, is where to transition her to in either scenario, as she does need a safe discharge plan where she can be cared for and supported either by her in the facility and or with her sister. Patient actually asked, for time to discuss this with her sister specifically, that they could talk between the 2 of them. Agreed that we still have some time , to make a decision, but this would direct our focus as far as a transition her discharge plan. Results - Lab Results Lab results reviewed: Yes Fish Bones: 04/24/17 05:00 04/24/17 05:00 Lab and Imaging Results: Lab Results x24hrs 04/24/17 04/24/17 04/24/17 Range/Units 16:12 11:33 07:58 WBC (4.8-10.8) x10^3/uL RBC (4.20-5.40) 10^6/uL Hgb (12.0-16.0) g/dL Hct (37.0-47.0) % MCV (81.0-99.0) fL MCH (27.0-31.0) pg MCHC (32.0-36.0) g/dL RDW (12.0-15.0) % Plt Count (130-450) 10^3/uL MPV (7.9-10.8) fL Sodium (135-145) mmol/L Potassium (3.5-5.0) mmol/L Chloride (101-111) mmol/L Carbon Dioxide (21-32) mmol/L Anion Gap (6-13) BUN (6-20) mg/dL Creatinine (0.4-1.0) mg/dL Estimated GFR (MDRD) (>89) Glucose (70-100) mg/dL POC Whole Bld Glucose 211 H 182 H (70 - 100) mg/dL Calcium (8.5-10.3) mg/dL Total Bilirubin (0.2-1.0) mg/dL AST (10-42) IU/L ALT (10-60) IU/L Alkaline Phosphatase (42-121) IU/L Ammonia (7-35) umol/L B-Natriuretic Peptide (5-100) pg/mL Total Protein (6.7-8.2) g/dL Albumin (3.2-5.5) g/dL Globulin (2.1-4.2) g/dL Albumin/Globulin Ratio (1.0-2.2) Vitamin B12 (180-914) pg/mL TSH (0.34-5.60) uIU/mL Blood Type A POSITIVE Blood Type Recheck Antibody Screen NEGATIVE Crossmatch IS Only See Detail 04/24/17 04/24/17 04/24/17 Range/Units 07:30 05:00 05:00 WBC (4.8-10.8) x10^3/uL RBC (4.20-5.40) 10^6/uL Hgb (12.0-16.0) g/dL Hct (37.0-47.0) % MCV (81.0-99.0) fL MCH (27.0-31.0) pg MCHC (32.0-36.0) g/dL RDW (12.0-15.0) % Plt Count (130-450) 10^3/uL MPV (7.9-10.8) fL Sodium (135-145) mmol/L Potassium (3.5-5.0) mmol/L Chloride (101-111) mmol/L Carbon Dioxide (21-32) mmol/L Anion Gap (6-13) BUN (6-20) mg/dL Creatinine (0.4-1.0) mg/dL Estimated GFR (MDRD) (>89) Glucose (70-100) mg/dL POC Whole Bld Glucose 91 (70 - 100) mg/dL Calcium (8.5-10.3) mg/dL Total Bilirubin (0.2-1.0) mg/dL AST (10-42) IU/L ALT (10-60) IU/L Alkaline Phosphatase (42-121) IU/L Ammonia (7-35) umol/L B-Natriuretic Peptide 127 H (5-100) pg/mL Total Protein (6.7-8.2) g/dL Albumin (3.2-5.5) g/dL Globulin (2.1-4.2) g/dL Albumin/Globulin Ratio (1.0-2.2) Vitamin B12 (180-914) pg/mL TSH (0.34-5.60) uIU/mL Blood Type Blood Type Recheck A POSITIVE Antibody Screen Crossmatch IS Only 04/24/17 04/24/17 04/24/17 Range/Units 05:00 05:00 05:00 WBC 2.1 L (4.8-10.8) x10^3/uL RBC 2.14 L (4.20-5.40) 10^6/uL Hgb 7.0 L* (12.0-16.0) g/dL Hct 21.2 L (37.0-47.0) % MCV 99.1 H (81.0-99.0) fL MCH 32.7 H (27.0-31.0) pg MCHC 33.0 (32.0-36.0) g/dL RDW 15.0 (12.0-15.0) % Plt Count 15 L* (130-450) 10^3/uL MPV 8.3 (7.9-10.8) fL Sodium 138 (135-145) mmol/L Potassium 3.5 (3.5-5.0) mmol/L Chloride 107 (101-111) mmol/L Carbon Dioxide 24 (21-32) mmol/L Anion Gap 7.0 (6-13) BUN 8 (6-20) mg/dL Creatinine 1.0 (0.4-1.0) mg/dL Estimated GFR (MDRD) 55 L (>89) Glucose 102 H (70-100) mg/dL POC Whole Bld Glucose (70 - 100) mg/dL Calcium 8.2 L (8.5-10.3) mg/dL Total Bilirubin (0.2-1.0) mg/dL AST (10-42) IU/L ALT (10-60) IU/L Alkaline Phosphatase (42-121) IU/L Ammonia (7-35) umol/L B-Natriuretic Peptide (5-100) pg/mL Total Protein (6.7-8.2) g/dL Albumin (3.2-5.5) g/dL Globulin (2.1-4.2) g/dL Albumin/Globulin Ratio (1.0-2.2) Vitamin B12 (180-914) pg/mL TSH 46.19 H (0.34-5.60) uIU/mL Blood Type Blood Type Recheck Antibody Screen Crossmatch IS Only 04/23/17 04/23/17 04/23/17 Range/Units 20:51 18:07 18:07 WBC (4.8-10.8) x10^3/uL RBC (4.20-5.40) 10^6/uL Hgb (12.0-16.0) g/dL Hct (37.0-47.0) % MCV (81.0-99.0) fL MCH (27.0-31.0) pg MCHC (32.0-36.0) g/dL RDW (12.0-15.0) % Plt Count (130-450) 10^3/uL MPV (7.9-10.8) fL Sodium (135-145) mmol/L Potassium (3.5-5.0) mmol/L Chloride (101-111) mmol/L Carbon Dioxide (21-32) mmol/L Anion Gap (6-13) BUN (6-20) mg/dL Creatinine (0.4-1.0) mg/dL Estimated GFR (MDRD) (>89) Glucose (70-100) mg/dL POC Whole Bld Glucose 301 H (70 - 100) mg/dL Calcium (8.5-10.3) mg/dL Total Bilirubin (0.2-1.0) mg/dL AST (10-42) IU/L ALT (10-60) IU/L Alkaline Phosphatase (42-121) IU/L Ammonia 10.0 (7-35) umol/L B-Natriuretic Peptide (5-100) pg/mL Total Protein (6.7-8.2) g/dL Albumin (3.2-5.5) g/dL Globulin (2.1-4.2) g/dL Albumin/Globulin Ratio (1.0-2.2) Vitamin B12 1372 H (180-914) pg/mL TSH (0.34-5.60) uIU/mL Blood Type Blood Type Recheck Antibody Screen Crossmatch IS Only 04/23/17 04/23/17 Range/Units 18:07 18:07 WBC 2.7 L (4.8-10.8) x10^3/uL RBC 2.62 L (4.20-5.40) 10^6/uL Hgb 8.5 L (12.0-16.0) g/dL Hct 26.1 L (37.0-47.0) % MCV 99.9 H (81.0-99.0) fL MCH 32.4 H (27.0-31.0) pg MCHC 32.4 (32.0-36.0) g/dL RDW 15.3 H (12.0-15.0) % Plt Count 25 L* (130-450) 10^3/uL MPV 9.7 (7.9-10.8) fL Sodium 133 L (135-145) mmol/L Potassium 3.5 (3.5-5.0) mmol/L Chloride 101 (101-111) mmol/L Carbon Dioxide 24 (21-32) mmol/L Anion Gap 8.0 (6-13) BUN 9 (6-20) mg/dL Creatinine 1.1 H (0.4-1.0) mg/dL Estimated GFR (MDRD) 50 L (>89) Glucose 336 H (70-100) mg/dL POC Whole Bld Glucose (70 - 100) mg/dL Calcium 8.4 L (8.5-10.3) mg/dL Total Bilirubin 0.4 (0.2-1.0) mg/dL AST 56 H (10-42) IU/L ALT 30 (10-60) IU/L Alkaline Phosphatase 221 H (42-121) IU/L Ammonia (7-35) umol/L B-Natriuretic Peptide (5-100) pg/mL Total Protein 6.3 L (6.7-8.2) g/dL Albumin 2.5 L (3.2-5.5) g/dL Globulin 3.8 (2.1-4.2) g/dL Albumin/Globulin Ratio 0.7 L (1.0-2.2) Vitamin B12 (180-914) pg/mL TSH (0.34-5.60) uIU/mL Blood Type Blood Type Recheck Antibody Screen Crossmatch IS Only Impression and Recommendations - Palliative Care Impression: This is a 67-year-old woman with stage IV pancreatic cancer with metastases to the liver and lung. She is currently acutely hospitalized for increased complications, side effects of chemotherapy, and fluctuating mental status. She did rule out on her MRI of the brain, CT scan without signs or symptoms of bleeding, and given the history of her increasing behavior, would attributed to dementia with both behavioral issues and sundowning. Her situation is complicated by her social situation, and limited resources. Recommendations/Counseling Done: 1. Pancreatic cancer stage IV. Follow-up with oncologist, is supportive of hospice as a option given patient's current situation and functional and cognitive decline. Patient currently with pancytopenia as she is hitting her eduardo. Would recommend consider transfusion for support if does not recover by tomorrow. Patient is complaining of significant fatigue. 2.Pain of neoplastic origin. Pain currently controlled with intermittent oxycodone and acetaminophen on a as needed basis. Given her fluctuating mental status, with continued to respond accordingly. Pain is located mid thoracic area described as a "hole" radiating through and around her abdomen. 3. Cognitive deficits with behavioral issues. Currently on on olanzapine 10 mg at bedtime. May continue with the focus on antipsychotic versus increasing benzodiazepines in this woman. Of note when she was discharged from [place], she was on significant amounts of clonazepam and Xanax. Olanzapine has the advantage, and also can contribute to increased appetite. She has struggled on and off with anorexia.4. Advanced care planning. Patient was presented with the continuum of care including palliative chemotherapy versus hospice or supportive care. Sister reports that they did have a conversation as I was leaving, that she would at this moment, she is to go on and pursue hospice support. Sister shared that her mother was on a ventilator for the last 2-3 years of her life, and patient and her both have not wanted to consider extending her suffering in any way shape or form. This though does not solve the underlying issue, which is a safe place to provide support, if Medicaid application comes through our approved, may consider transition to carriage, with hospice support and oversight there. Given the patient's fluctuating status, will continue to revisit this, the sister feels like this would be a good decision and consistent with patient's previously expressed values. She has expressed she wants her sister to be her durable power of health rn hedis and awaiting to get form notarized. Spoke with [facility] to consider Renee Alonso as option if pursuing support for EOL care. Time Spent: Time spent 40 minutes with greater than 50% of this done in counseling coordination of care regarding transition planning, defining goals of care particularly continuum to include hospice, and anticipatory guidance.
[2017-04-24] MEDS ORDERED: SODIUM CHLORIDE 0.9% 100ML 100 ML IV ONE (20:33)
[2017-04-24] MEDS: SODIUM CHLORIDE FLUSH 0.9% 10 ML SYRINGE IVP PRN (20:38)
[2017-04-24] MEDS: INSULIN GLARGINE 300 UNIT/3 ML PEN SUBQ SCH (20:45)
[2017-04-25] MEDS: oxyCODONE 5 MG TABLET PO PRN ×2 (01:28→20:08)
[2017-04-25] MEDS: HALOPERIDOL 1 MG TABLET PO PRN ×3 (04:16→22:42)
[2017-04-25] MEDS: PIPERACILLIN/TAZOBACTAM 4.5 GM in SODIUM CHLORIDE 0.9% MINIBAG 100 ML IV SCH ×3 (04:36→21:49)
[2017-04-25 05:39] LABS: BASOPHILS % (AUTO) 0.2 %; HGB - HEMOGLOBIN 7.2 g/dL (12.0-16.0); LYMPHOCYTES # (AUTO) 0.6 10^3/uL (1.5-3.5); LYMPHOCYTES % (AUTO) 37.7 %; MEAN CORPUSCULAR HGB CONC 32.5 g/dL (32.0-36.0); MEAN CORPUSCULAR VOLUME 98.5 fL (81.0-99.0); MEAN PLATELET VOLUME 8.4 fL (7.9-10.8); MONOCYTES # (AUTO) 0.1 10^3/uL (0.0-1.0); MONOCYTES % (AUTO) 3.8 %; NEUTROPHILS % (AUTO) 56.3 %; NUCLEATED RED BLOOD CELLS AUTO 0.2 /100WBC; RED BLOOD COUNT 2.23 10^6/uL (4.20-5.40); RED CELL DISTRIBUTION WIDTH 15.3 % (12.0-15.0); UNCORRECTED WHITE BLOOD COUNT 1.7 x10^3/uL
[2017-04-25 05:50] LABS: ALBUMIN/GLOBULIN RATIO 0.7 (1.0-2.2); BILIRUBIN,TOTAL 0.6 mg/dL (0.2-1.0); CALCIUM 8.1 mg/dL (8.5-10.3); MAGNESIUM 1.6 mg/dL (1.7-2.8); POTASSIUM 3.3 mmol/L (3.5-5.0); TOTAL PROTEIN 5.4 g/dL (6.7-8.2)
[2017-04-25 06:01] LABS: WHITE BLOOD COUNT 1.7 x10^3/uL (4.8-10.8)
[2017-04-25 06:31] LABS: PLATELET ESTIMATE, MANUAL DECREASED (<130,000) (NORMAL); PLATELET MORPHOLOGY NORMAL APPEARANCE (NORMAL)
[2017-04-25] MEDS: IPRATROPIUM/ALBUTEROL 3 ML NEB INH PRN ×2 (07:50→19:50)
[2017-04-25] MEDS: FORMOTEROL FUMARATE NEB 20 MCG/2 ML INH SCH ×2 (07:50→19:50)
[2017-04-25] MEDS: BUDESONIDE 0.5 MG/2 ML NEB INH SCH ×2 (07:50→19:50)
[2017-04-25] MEDS: SODIUM CHLORIDE FLUSH 0.9% 10 ML SYRINGE IVP SCH ×3 (07:53→18:15)
[2017-04-25] MEDS ORDERED: MAGNESIUM OXIDE 400 MG TABLET PO ONE (08:00)
[2017-04-25] MEDS ORDERED: POTASSIUM CHLORIDE 20 MEQ TABLET PO ONE (08:00)
[2017-04-25] MEDS: INSULIN ASPART 300 UNIT/3 ML PEN SUBQ SCH ×4 (08:34→21:57)
[2017-04-25] MEDS: CITALOPRAM 10 MG TABLET PO SCH (08:56)
[2017-04-25] MEDS: FAMOTIDINE 20 MG TABLET PO SCH (08:56)
[2017-04-25] MEDS: LEVOTHYROXINE 125 MCG TABLET PO SCH (08:57)
[2017-04-25] MEDS: clonazePAM 0.5 MG TABLET PO SCH ×2 (08:57→21:50)
--- NOTE | 2017-04-25 16:19 | PROVIDER PROGRESS NOTE ---
Subjective - Prog Note Date Prog Note Date: 04/25/17 Objective - Vital Signs/Intake & Output Vital Signs: Vital Signs x48h Temp Pulse Resp BP BP Pulse Ox 04/25/17 16:01 36.6 C 70 18 129/59 L 98 04/25/17 14:06 36.6 C 69 16 116/59 L 99 04/25/17 13:35 36.5 C 66 16 109/62 99 04/25/17 12:43 36.6 C 78 16 122/63 100 04/25/17 08:30 36.3 C L 68 16 139/63 H 100 Intake & Output: Intake & Output 04/22/17 04/23/17 04/24/17 04/25/17 23:59 23:59 23:59 23:59 Intake Total 1550 1090 1820 1280 Output Total 250 Balance 1550 1090 1820 1030 - Lab Results Fish Bones: 04/25/17 05:22 04/25/17 05:22 Other Labs: Lab Results x24hrs 04/25/17 04/25/17 04/25/17 Range/Units 11:37 07:54 05:22 WBC (4.8-10.8) x10^3/uL RBC (4.20-5.40) 10^6/uL Hgb (12.0-16.0) g/dL Hct (37.0-47.0) % MCV (81.0-99.0) fL MCH (27.0-31.0) pg MCHC (32.0-36.0) g/dL RDW (12.0-15.0) % Plt Count (130-450) 10^3/uL MPV (7.9-10.8) fL Neut # (1.5-6.6) 10^3/uL Lymph # (1.5-3.5) 10^3/uL [place] # (0.0-1.0) 10^3/uL Eos # (0.0-0.7) 10^3/uL Baso # (0.0-0.1) 10^3/uL Absolute Nucleated RBC x10^3/uL Nucleated RBC % /100WBC Manual Slide Review Platelet Estimate (NORMAL) Platelet Morphology (NORMAL) RBC Morph Micro Appear (NORMAL) Sodium 139 (135-145) mmol/L Potassium 3.3 L (3.5-5.0) mmol/L Chloride 107 (101-111) mmol/L Carbon Dioxide 24 (21-32) mmol/L Anion Gap 8.0 (6-13) BUN 8 (6-20) mg/dL Creatinine 1.0 (0.4-1.0) mg/dL Estimated GFR (MDRD) 55 L (>89) Glucose 110 H (70-100) mg/dL POC Whole Bld Glucose 181 H 76 (70 - 100) mg/dL Calcium 8.1 L (8.5-10.3) mg/dL Magnesium 1.6 L (1.7-2.8) mg/dL Total Bilirubin 0.6 (0.2-1.0) mg/dL AST 47 H (10-42) IU/L ALT 24 (10-60) IU/L Alkaline Phosphatase 201 H (42-121) IU/L Total Protein 5.4 L (6.7-8.2) g/dL Albumin 2.2 L (3.2-5.5) g/dL Globulin 3.2 (2.1-4.2) g/dL Albumin/Globulin Ratio 0.7 L (1.0-2.2) 04/25/17 04/24/17 Range/Units 05:22 20:41 WBC 1.7 L* (4.8-10.8) x10^3/uL RBC 2.23 L (4.20-5.40) 10^6/uL Hgb 7.2 L (12.0-16.0) g/dL Hct 22.0 L (37.0-47.0) % MCV 98.5 (81.0-99.0) fL MCH 32.0 H (27.0-31.0) pg MCHC 32.5 (32.0-36.0) g/dL RDW 15.3 H (12.0-15.0) % Plt Count 13 L* (130-450) 10^3/uL MPV 8.4 (7.9-10.8) fL Neut # 1.0 L (1.5-6.6) 10^3/uL Lymph # 0.6 L (1.5-3.5) 10^3/uL [place] # 0.1 (0.0-1.0) 10^3/uL Eos # 0.0 (0.0-0.7) 10^3/uL Baso # 0.0 (0.0-0.1) 10^3/uL Absolute Nucleated RBC 0.00 x10^3/uL Nucleated RBC % 0.2 /100WBC Manual Slide Review Indicated Platelet Estimate DECREASED (<130,000) (NORMAL) Platelet Morphology NORMAL APPEARANCE (NORMAL) RBC Morph Micro Appear NORMAL APPEARANCE (NORMAL) Sodium (135-145) mmol/L Potassium (3.5-5.0) mmol/L Chloride (101-111) mmol/L Carbon Dioxide (21-32) mmol/L Anion Gap (6-13) BUN (6-20) mg/dL Creatinine (0.4-1.0) mg/dL Estimated GFR (MDRD) (>89) Glucose (70-100) mg/dL POC Whole Bld Glucose 236 H (70 - 100) mg/dL Calcium (8.5-10.3) mg/dL Magnesium (1.7-2.8) mg/dL Total Bilirubin (0.2-1.0) mg/dL AST (10-42) IU/L ALT (10-60) IU/L Alkaline Phosphatase (42-121) IU/L Total Protein (6.7-8.2) g/dL Albumin (3.2-5.5) g/dL Globulin (2.1-4.2) g/dL Albumin/Globulin Ratio (1.0-2.2) Assessment/Plan - Problem List (1) Anemia Impression: Impression: (1) anemia, today pt's HGB is up slight to 7.2, and walked with nurse and tech. it seems pt is asymptomatic. pt is status post of chemotherapy will closely monitor CBC, transfusion of blood as needed today HGB 7, pt is asymptomatic, HR without changing, no SOB, no chest pain. Pt denies any acute GI bleeding, vomiting. pt had a chemotherapy 7 days ago, plus pt had stage 4 of pancreatic cancer. continue closely monitor pt's HGB and HCT, will transfuse of blood as clinical needed lab monitor, vital, tele monitor pt cross match ordered. (2) thrombocytopenia pt has mild nose bleeding cross and match for plt transfusion of one unit of plt will recheck lab, and follow up the result closely monitor pt if any bleeding today pt's plt is 15, significant lower, but pt denies any acute bleeding will closely monitor pt if any bleeding, with lab, vital, tele, nurse around cross match, will transfusion plasma as needed lab monitor, vital, tele, nurse monitor pt (3) leukocytopenia pt's WBC is down to 1.7, she is status post chemotherapy Neuropenia precaution pt is on Zosyn now daily lab and vital monitor (4) Pancreatic cancer metastasized to liver Impression: Continued palliative, hold chemotherapy since pt has significant reverse reaction from chemotherapy continue palliative care, follow up palliative design consultant Lauren discussed with pt and pt's family, pt is still no making the final hospice care decision yet. 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 A liver node biopsy performed on 12/27/16 confirmed adenocarcinoma. Plan: Continued palliative chemotherapy through Right chest port with gemcitabine and Abraxane IV per MAC. Oncology INSPECTOR [employer] visited today to share plan of care, which is continued monitoring. Patient was supposed to begin another portion of chemo this week. They will keep us informed as to the next course of action expected. (5) Progressive focal motor weakness Impression: weakness, continue PT/OT fall precaution This has been a progressive problem as evidence by increased falls with injury and debility. Plan: PT/OT consulted after acute illness and has now signed off. Non-skid foot wear should be worn and a bed/chair alarm at all times since patient continues to be impulsive and unaware of the likelihood of a subsequent fall. PT evaluation was ordered today to do a home safety evaluation. They noted that she is able to ambulate with only supervision, although she displays lack of awareness and judgment. At night patient has been exhibiting signs of "sundowning" which may lead to day time weakness. (6) Frequent falls Impression: continue current treatment. no fall reported closely monitor, fall precaution With injury to head, LUE and LLE injuries noted. Bruising noted to left knee and extend to ankle/foot that is improving each day. Patient remains impulsive and looses awareness of surroundings at times. Plan: Bed or chair alarm for safety. PT/OT consulted after acute illness. Patient should be reminded to wear non-skid socks and to call for help since she remains unaware of her risk of falls. PT completed a home safety evaluation and note that she has a good steady gait, but may need supervision if living alone. (7) Type II diabetes mellitus Impression: stable, continue slide scale, hypoglycemia protocol HgA1C was 7.6 on 04/20/17. Blood glucose on chemistry lab finding upon admit was over 400mg/dl. Suspect related to stress/illness. Blood sugars much improved today and were between 179-301. Plan: Sliding scale insulin ordered with POC blood glucose checks. Started long -acting insulin at 15U at hs, will increase to 25U for tonight. (8) Dementia associated with other underlying disease Impression: pt is actually more oriented today neuro check vital, lab monitor Patient has increased confusion, suspect Sundowning. Vitamin B12 level was elevated above 1300. Normal [place] level. (9) hypothyroidism TSH value is high reconciliated Levothyroxine to pt
[2017-04-25] MEDS: CELECOXIB 100 MG CAPSULE PO SCH (17:08)
[2017-04-25] MEDS: SODIUM CHLORIDE FLUSH 0.9% 10 ML SYRINGE IVP PRN (21:49)
[2017-04-25] MEDS: TEMAZEPAM 15 MG CAPSULE PO PRN (21:50)
[2017-04-25] MEDS: INSULIN GLARGINE 300 UNIT/3 ML PEN SUBQ SCH (21:58)
[2017-04-25] MEDS: OLANZapine ODT 5 MG TABLET TL PRN (22:41)
[2017-04-26] MEDS: FORMOTEROL FUMARATE NEB 20 MCG/2 ML INH SCH ×3 (02:01→19:20)
[2017-04-26] MEDS: BUDESONIDE 0.5 MG/2 ML NEB INH SCH ×3 (02:01→19:20)
[2017-04-26] MEDS: SODIUM CHLORIDE FLUSH 0.9% 10 ML SYRINGE IVP PRN ×3 (02:59→05:08)
[2017-04-26] MEDS: PIPERACILLIN/TAZOBACTAM 4.5 GM in SODIUM CHLORIDE 0.9% MINIBAG 100 ML IV SCH ×3 (04:55→22:31)
[2017-04-26] MEDS: SODIUM CHLORIDE FLUSH 0.9% 10 ML SYRINGE IVP SCH ×2 (04:56→14:24)
[2017-04-26 05:28] LABS: BASOPHILS % (AUTO) 0.2 %; EOSINOPHILS % (AUTO) 1.4 %; HCT - HEMATOCRIT 20.4 % (37.0-47.0); LYMPHOCYTES % (AUTO) 38.4 %; MEAN CORPUSCULAR HEMOGLOBIN 32.3 pg (27.0-31.0); MEAN CORPUSCULAR HGB CONC 32.9 g/dL (32.0-36.0); MEAN CORPUSCULAR VOLUME 98.3 fL (81.0-99.0); MEAN PLATELET VOLUME 8.6 fL (7.9-10.8); MONOCYTES % (AUTO) 6.5 %; NEUTROPHILS % (AUTO) 53.5 %; RED BLOOD COUNT 2.07 10^6/uL (4.20-5.40); RED CELL DISTRIBUTION WIDTH 15.1 % (12.0-15.0); UNCORRECTED WHITE BLOOD COUNT 1.8 x10^3/uL
[2017-04-26 05:31] LABS: HGB - HEMOGLOBIN 6.7 g/dL (12.0-16.0); WHITE BLOOD COUNT 1.8 x10^3/uL (4.8-10.8)
[2017-04-26 05:32] LABS: BAND NEUTROPHILS % (MANUAL) 0 %
[2017-04-26 05:34] LABS: ALBUMIN/GLOBULIN RATIO 0.6 (1.0-2.2); BILIRUBIN,TOTAL 0.2 mg/dL (0.2-1.0); CALCIUM 8.3 mg/dL (8.5-10.3); CREATININE 1.2 mg/dL (0.4-1.0); POTASSIUM 3.5 mmol/L (3.5-5.0); TOTAL PROTEIN 5.6 g/dL (6.7-8.2)
[2017-04-26 05:47] LABS: EOSINOPHILS % (MANUAL) 1 %; LYMPHOCYTES % (MANUAL) 48 %; NEUTROPHILS % (MANUAL) 46 %; PLATELET ESTIMATE, MANUAL DECREASED (<130,000) (NORMAL); TOTAL CELLS COUNTED 100
[2017-04-26 05:48] LABS: NP AUTO DIFFERENTIAL? YES; NP MAN DIFFERENTIAL? NO
[2017-04-26] MEDS: LEVOTHYROXINE 125 MCG TABLET PO SCH (06:33)
[2017-04-26] MEDS: INSULIN ASPART 300 UNIT/3 ML PEN SUBQ SCH ×4 (09:07→20:37)
[2017-04-26] MEDS: CITALOPRAM 10 MG TABLET PO SCH (09:07)
[2017-04-26] MEDS: clonazePAM 0.5 MG TABLET PO SCH ×2 (09:08→20:32)
[2017-04-26] MEDS: FAMOTIDINE 20 MG TABLET PO SCH (09:08)
[2017-04-26] MEDS ORDERED: SODIUM CHLORIDE 0.9% 1,000 ML IV ONE (12:38)
[2017-04-26] MEDS ORDERED: SODIUM CHLORIDE FLUSH 0.9% 10 ML SYRINGE IVP ONE ×2 (12:38→18:38)
[2017-04-26] MEDS: OLANZapine ODT 5 MG TABLET TL PRN (15:03)
[2017-04-26] MEDS: CELECOXIB 100 MG CAPSULE PO SCH (17:35)
[2017-04-26] MEDS: HALOPERIDOL 1 MG TABLET PO PRN (17:45)
--- NOTE | 2017-04-26 17:46 | PROVIDER PROGRESS NOTE ---
Subjective - Prog Note Date Prog Note Date: 04/26/17 - Subjective Pt reports feeling: Improved Subjective: pt felt some dizziness, denies chest pain, fever, chill, SOB Current Medications - Current Medications Current Medications: Active Medications Acetaminophen (Tylenol) 650 mg PO Q4HR PRN PRN Reason: Pain or Fever > 38C (100.4F) Last Admin: 04/23/17 01:33 Dose: 650 mg Albuterol/Ipratropium (Duoneb) 3 ml INH RTQ4H PRN PRN Reason: Wheezing Last Admin: 04/25/17 19:50 Dose: 3 ml Budesonide (Pulmicort) 0.5 mg INH RTBID [facility] Last Admin: 04/26/17 08:57 Dose: Not Given Celecoxib (Celebrex) 200 mg PO DAILY@1700 [facility] Last Admin: 04/26/17 17:35 Dose: 200 mg Citalopram Hydrobromide (Celexa) 40 mg PO DAILY [facility] Last Admin: 04/26/17 09:07 Dose: 40 mg Clonazepam (Klonopin) 1 mg PO BID [facility] Last Admin: 04/26/17 09:08 Dose: 1 mg Famotidine (Pepcid) 20 mg PO DAILY [facility] Last Admin: 04/26/17 09:08 Dose: 20 mg Formoterol Fumarate (Perforomist) 20 mcg INH RTBID [facility] Last Admin: 04/26/17 08:57 Dose: Not Given Haloperidol (Haldol) 1 mg PO Q4H PRN PRN Reason: Agitation Last Admin: 04/26/17 17:45 Dose: 1 mg Heparin Sodium (Beef Lung) () 30 - 50 unit IVP ONCE PRN PRN Reason: Port Protocol (<24 hours) Stop: 05/25/17 03:21 Hydromorphone HCl (Dilaudid Inj Syringe) 0.5 mg IVP Q2H PRN PRN Reason: Pain 8 to 10 Piperacillin Sod/Tazobactam (Sod 4.5 gm/ Sodium Chloride) 100 mls @ 25 mls/hr IV Q8H [facility] Last Admin: 04/26/17 14:24 Dose: Not Given Insulin Aspart (Novolog) 3 - 11 unit SUBQ 0800,1200,1700,2100 [facility] PRN Reason: Protocol Last Admin: 04/26/17 17:35 Dose: 7 unit Insulin Glargine (Lantus Solostar) 25 unit SUBQ QPM [facility] Last Admin: 04/25/17 21:58 Dose: 25 unit Levothyroxine Sodium (Synthroid) 125 mcg PO QDAC [facility] Last Admin: 04/26/17 06:33 Dose: 125 mcg Olanzapine (Zyprexa Odt) 10 mg TL DAILY PRN PRN Reason: Agitation Last Admin: 04/26/17 15:03 Dose: 10 mg Oxycodone HCl (Roxicodone) 5 mg PO Q4H PRN PRN Reason: PAIN Last Admin: 04/25/17 20:08 Dose: 5 mg Prochlorperazine Maleate (Compazine) 10 mg PO Q6H PRN PRN Reason: Nausea / Vomiting Sodium Chloride (Normal Saline Flush 0.9%) 10 ml IVP PRN PRN PRN Reason: NEEDED PER PROVIDER ORDERS Last Admin: 04/26/17 05:08 Dose: 10 ml Sodium Chloride (Normal Saline Flush 0.9%) 10 ml IVP Q8HR [facility] Last Admin: 04/26/17 14:24 Dose: Not Given Temazepam (Restoril) 15 mg PO QPM PRN PRN Reason: Insomnia Last Admin: 04/25/17 21:50 Dose: 15 mg Rivaroxaban [Xarelto] 20 mg PO DAILY@1700 03/31/17 Zolpidem [Ambien] 5 mg PO QPM PRN 03/31/17 metFORMIN [Glucophage] 1,000 mg PO BIDWM 03/31/17 oxyCODONE [Roxicodone] 5 mg PO Q4H PRN 04/16/17 Celecoxib [CeleBREX] 200 mg PO DAILY@1700 04/19/17 Citalopram [CeleXA] 40 mg PO DAILY 04/19/17 Insulin Aspart [Novolog Flexpen] 2 - 9 units SUBQ DAILY 04/19/17 Insulin Degludec [Tresiba Flextouch U-100] 45 units SUBQ DAILY 04/19/17 Levothyroxine Sodium 125 mcg PO QDAC 04/19/17 Prochlorperazine [Compazine] 10 mg PO Q6H PRN 04/19/17 clonazePAM [Clonazepam] 1 mg PO BID 04/19/17 Objective - Vital Signs/Intake & Output Reviewed Vital Signs: Yes Vital Signs: Vital Signs x48h Temp Pulse Pulse Resp BP BP Pulse Ox 04/26/17 16:00 36.4 C L 66 18 144/75 H 98 04/26/17 15:22 36.4 C L 63 18 135/64 H 100 04/26/17 13:00 36.2 C L 72 18 116/72 04/26/17 12:45 36.6 C 68 16 130/60 04/26/17 12:30 36.4 C L 68 16 130/60 98 Intake & Output: Intake & Output 04/23/17 04/24/17 04/25/17 04/26/17 23:59 23:59 23:59 23:59 Intake Total 1090 1820 2620 880 Output Total 250 Balance 1090 1820 2370 880 - Objective General Appearance: positive: No acute distress, Alert. negative: Lethargic Eyes Bilateral: positive: Normal inspection, PERRL, No lid inflammation, Conjunctivae nml ENT: positive: ENT inspection nml, Pharynx nml, No signs of dehydration. negative: Purulent nasal drainage, Pharyngeal erythema, Oral lesions Neck: positive: Nml inspection, Thyroid nml, No JVD, Trachea midline. negative : Thyromegaly, Lymphadenopathy (R), Lymphadenopathy (L), Stiff neck, Carotid bruit, Swelling/bruising, Tracheal deviation Respiratory: positive: Chest non-tender, No respiratory distress, Breath sounds nml. negative: Wheezes, Rales, Rhonchi Cardiovascular: positive: Regular rate & rhythm, No murmur, No gallop. negative : Irregularly irregular, Extrasystoles, Tachycardia, Bradycardia, Systolic murmur, Diastolic murmur Peripheral Pulses: 2+ Radial (R), 2+ Radial (L), 2+ Dorsalis pedis (R), 2+ Dorsalis pedis (L) Abdomen: positive: Non-tender, No organomegaly, Nml bowel sounds, No distention. negative: Tenderness, Guarding, Rebound Back: positive: Nml inspection. negative: CVA tenderness (R), CVA tenderness (L ) Skin: positive: Color nml, No rash, Warm, Dry. negative: Cyanosis, Diaphoresis , Pallor, Skin rash Extremities: positive: Non-tender, Full ROM, Nml appearance. negative: Pedal edema, Calf tenderness, Joint swelling, Chrystal's sign/cords Neurologic/Psychiatric: positive: Motor nml, Sensation nml, Weakness. negative : Sensory loss, Facial droop, Slurred/abnml speech, Depressed mood/affect - Lab Results Fish Bones: 04/26/17 05:10 04/26/17 05:10 Other Labs: Lab Results x24hrs 04/26/17 04/26/17 04/26/17 Range/Units 16:51 11:15 05:10 WBC (4.8-10.8) x10^3/uL RBC (4.20-5.40) 10^6/uL Hgb (12.0-16.0) g/dL Hct (37.0-47.0) % MCV (81.0-99.0) fL MCH (27.0-31.0) pg MCHC (32.0-36.0) g/dL RDW (12.0-15.0) % Plt Count (130-450) 10^3/uL MPV (7.9-10.8) fL Neut # Lymph # [place] # Eos # Baso # Absolute Nucleated RBC Total Counted Band Neuts % (Manual) (0 - 10) % Nucleated RBC % Neutrophils # (Manual) (1.5-6.6) 10^3/uL Lymphocytes # (Manual) (1.5-3.5) 10^3/uL Monocytes # (Manual) (0.0-1.0) 10^3/uL Eosinophils # (Manual) (0-0.7) 10^3/uL Differential Comment Platelet Estimate (NORMAL) RBC Morph Micro Appear (NORMAL) Sodium 140 (135-145) mmol/L Potassium 3.5 (3.5-5.0) mmol/L Chloride 105 (101-111) mmol/L Carbon Dioxide 24 (21-32) mmol/L Anion Gap 11.0 (6-13) BUN 8 (6-20) mg/dL Creatinine 1.2 H (0.4-1.0) mg/dL Estimated GFR (MDRD) 45 L (>89) Glucose 189 H (70-100) mg/dL POC Whole Bld Glucose 238 H 192 H (70 - 100) mg/dL Calcium 8.3 L (8.5-10.3) mg/dL Total Bilirubin 0.2 (0.2-1.0) mg/dL AST 49 H (10-42) IU/L ALT 25 (10-60) IU/L Alkaline Phosphatase 187 H (42-121) IU/L Total Protein 5.6 L (6.7-8.2) g/dL Albumin 2.2 L (3.2-5.5) g/dL Globulin 3.4 (2.1-4.2) g/dL Albumin/Globulin Ratio 0.6 L (1.0-2.2) Blood Type Antibody Screen Crossmatch IS Only 04/26/17 04/25/17 04/24/17 Range/Units 05:10 20:56 07:58 WBC 1.8 L* (4.8-10.8) x10^3/uL RBC 2.07 L (4.20-5.40) 10^6/uL Hgb 6.7 L* (12.0-16.0) g/dL Hct 20.4 L (37.0-47.0) % MCV 98.3 (81.0-99.0) fL MCH 32.3 H (27.0-31.0) pg MCHC 32.9 (32.0-36.0) g/dL RDW 15.1 H (12.0-15.0) % Plt Count 36 L (130-450) 10^3/uL MPV 8.6 (7.9-10.8) fL Neut # Not Reportable Lymph # Not Reportable [place] # Not Reportable Eos # Not Reportable Baso # Not Reportable Absolute Nucleated RBC Not Reportable Total Counted 100 Band Neuts % (Manual) 0 (0 - 10) % Nucleated RBC % Not Reportable Neutrophils # (Manual) 0.8 L (1.5-6.6) 10^3/uL Lymphocytes # (Manual) 0.9 L (1.5-3.5) 10^3/uL Monocytes # (Manual) 0.1 (0.0-1.0) 10^3/uL Eosinophils # (Manual) 0.0 (0-0.7) 10^3/uL Differential Comment MANUAL DIFFERENTIAL Platelet Estimate DECREASED (<130,000) (NORMAL) RBC Morph Micro Appear 1+ HYPOCHROMASIA (NORMAL) Sodium (135-145) mmol/L Potassium (3.5-5.0) mmol/L Chloride (101-111) mmol/L Carbon Dioxide (21-32) mmol/L Anion Gap (6-13) BUN (6-20) mg/dL Creatinine (0.4-1.0) mg/dL Estimated GFR (MDRD) (>89) Glucose (70-100) mg/dL POC Whole Bld Glucose 189 H (70 - 100) mg/dL Calcium (8.5-10.3) mg/dL Total Bilirubin (0.2-1.0) mg/dL AST (10-42) IU/L ALT (10-60) IU/L Alkaline Phosphatase (42-121) IU/L Total Protein (6.7-8.2) g/dL Albumin (3.2-5.5) g/dL Globulin (2.1-4.2) g/dL Albumin/Globulin Ratio (1.0-2.2) Blood Type A POSITIVE Antibody Screen NEGATIVE Crossmatch IS Only See Detail Assessment/Plan - Problem List (1) Anemia Impression: pt's HGB is down to 6.7, and dizziness. pt was ordered two units of blood continue lab monitor today pt's HGB is up slight to 7.2, and walked with nurse and tech. it seems pt is asymptomatic. pt is status post of chemotherapy will closely monitor CBC, transfusion of blood as needed today HGB 7, pt is asymptomatic, HR without changing, no SOB, no chest pain. Pt denies any acute GI bleeding, vomiting. pt had a chemotherapy 7 days ago, plus pt had stage 4 of pancreatic cancer. continue closely monitor pt's HGB and HCT, will transfuse of blood as clinical needed lab monitor, vital, tele monitor pt cross match ordered. (2) thrombocytopenia plt is up to 36,000 after transfusion of plt will continue CBC monitor daily monitor any bleeding closely pt has mild nose bleeding cross and match for plt transfusion of one unit of plt will recheck lab, and follow up the result closely monitor pt if any bleeding today pt's plt is 15, significant lower, but pt denies any acute bleeding will closely monitor pt if any bleeding, with lab, vital, tele, nurse around cross match, will transfusion plasma as needed lab monitor, vital, tele, nurse monitor pt (3) leukocytopenia WBC is 1.8, still severe lower neuropenia precaution continue continue antibiotics pt's WBC is down to 1.7, she is status post chemotherapy Neuropenia precaution pt is on Zosyn now daily lab and vital monitor (4) Pancreatic cancer metastasized to liver Impression: Continued palliative, hold chemotherapy since pt has significant reverse reaction from chemotherapy continue palliative care, follow up palliative international travel consultant Lauren discussed with pt and pt's family, pt is still no making the final hospice care decision yet. 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 A liver node biopsy performed on 12/27/16 confirmed adenocarcinoma. Plan: Continued palliative chemotherapy through Right chest port with gemcitabine and Abraxane IV per MAC. Oncology SCHOOL BUS DRIVER/CUSTODIAN visited today to share plan of care, which is continued monitoring. Patient was supposed to begin another portion of chemo this week. They will keep us informed as to the next course of action expected. (5) Progressive focal motor weakness Impression: weakness, continue PT/OT fall precaution This has been a progressive problem as evidence by increased falls with injury and debility. Plan: PT/OT consulted after acute illness and has now signed off. Non-skid foot wear should be worn and a bed/chair alarm at all times since patient continues to be impulsive and unaware of the likelihood of a subsequent fall. PT evaluation was ordered today to do a home safety evaluation. They noted that she is able to ambulate with only supervision, although she displays lack of awareness and judgment. At night patient has been exhibiting signs of "sundowning" which may lead to day time weakness. (6) Frequent falls Impression: continue current treatment. no fall reported closely monitor, fall precaution With injury to head, LUE and LLE injuries noted. Bruising noted to left knee and extend to ankle/foot that is improving each day. Patient remains impulsive and looses awareness of surroundings at times. Plan: Bed or chair alarm for safety. PT/OT consulted after acute illness. Patient should be reminded to wear non-skid socks and to call for help since she remains unaware of her risk of falls. PT completed a home safety evaluation and note that she has a good steady gait, but may need supervision if living alone. (7) Type II diabetes mellitus Impression: stable, continue slide scale, hypoglycemia protocol HgA1C was 7.6 on 04/20/17. Blood glucose on chemistry lab finding upon admit was over 400mg/dl. Suspect related to stress/illness. Blood sugars much improved today and were between 179-301. Plan: Sliding scale insulin ordered with POC blood glucose checks. Started long -acting insulin at 15U at hs, will increase to 25U for tonight. (8) Dementia associated with other underlying disease Impression: pt is actually more oriented today neuro check vital, lab monitor Patient has increased confusion, suspect Sundowning. Vitamin B12 level was elevated above 1300. Normal [place] level. (9) hypothyroidism resume levothyoxine
[2017-04-26] MEDS ORDERED: SODIUM CHLORIDE 0.9% 250 ML IV ONE (18:38)
[2017-04-26] MEDS: IPRATROPIUM/ALBUTEROL 3 ML NEB INH PRN (19:20)
[2017-04-26] MEDS: INSULIN GLARGINE 300 UNIT/3 ML PEN SUBQ SCH (20:34)
[2017-04-27] MEDS: oxyCODONE 5 MG TABLET PO PRN ×2 (01:05→15:41)
[2017-04-27] MEDS: PIPERACILLIN/TAZOBACTAM 4.5 GM in SODIUM CHLORIDE 0.9% MINIBAG 100 ML IV SCH ×2 (05:22→13:17)
[2017-04-27 05:40] LABS: BASOPHILS % (AUTO) 0.2 %; EOSINOPHILS % (AUTO) 1.1 %; HCT - HEMATOCRIT 26.9 % (37.0-47.0); LYMPHOCYTES % (AUTO) 34.7 %; MEAN CORPUSCULAR HEMOGLOBIN 31.6 pg (27.0-31.0); MEAN CORPUSCULAR HGB CONC 33.6 g/dL (32.0-36.0); MEAN CORPUSCULAR VOLUME 94.2 fL (81.0-99.0); MEAN PLATELET VOLUME 8.5 fL (7.9-10.8); MONOCYTES % (AUTO) 8.1 %; NEUTROPHILS % (AUTO) 55.9 %; RED BLOOD COUNT 2.86 10^6/uL (4.20-5.40); RED CELL DISTRIBUTION WIDTH 18.4 % (12.0-15.0); UNCORRECTED WHITE BLOOD COUNT 2.4 x10^3/uL; WHITE BLOOD COUNT 2.4 x10^3/uL (4.8-10.8)
[2017-04-27 05:52] LABS: ALBUMIN/GLOBULIN RATIO 0.7 (1.0-2.2); BILIRUBIN,TOTAL 0.7 mg/dL (0.2-1.0); CALCIUM 8.3 mg/dL (8.5-10.3); CREATININE 1.1 mg/dL (0.4-1.0); POTASSIUM 3.6 mmol/L (3.5-5.0); TOTAL PROTEIN 5.7 g/dL (6.7-8.2)
[2017-04-27] MEDS: LEVOTHYROXINE 125 MCG TABLET PO SCH (05:56)
[2017-04-27 06:00] LABS: BAND NEUTROPHILS % (MANUAL) 0 %
[2017-04-27 06:23] LABS: EOSINOPHILS % (MANUAL) 1 %; LYMPHOCYTES % (MANUAL) 25 %; NEUTROPHILS % (MANUAL) 67 %; NP AUTO DIFFERENTIAL? YES; NP MAN DIFFERENTIAL? NO; PLATELET ESTIMATE, MANUAL DECREASED (<130,000) (NORMAL); TOTAL CELLS COUNTED 100
[2017-04-27] MEDS: SODIUM CHLORIDE FLUSH 0.9% 10 ML SYRINGE IVP SCH ×4 (06:45→21:16)
[2017-04-27] MEDS: BUDESONIDE 0.5 MG/2 ML NEB INH SCH ×2 (07:34→22:42)
[2017-04-27] MEDS: FORMOTEROL FUMARATE NEB 20 MCG/2 ML INH SCH ×2 (07:34→22:42)
[2017-04-27] MEDS: IPRATROPIUM/ALBUTEROL 3 ML NEB INH PRN (07:35)
[2017-04-27] MEDS: INSULIN ASPART 300 UNIT/3 ML PEN SUBQ SCH ×4 (09:40→21:14)
[2017-04-27] MEDS: FAMOTIDINE 20 MG TABLET PO SCH (09:44)
[2017-04-27] MEDS: CITALOPRAM 10 MG TABLET PO SCH (09:44)
[2017-04-27] MEDS: clonazePAM 0.5 MG TABLET PO SCH ×2 (09:44→21:17)
--- NOTE | 2017-04-27 14:32 | CONSULTATION NOTE ---
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 She was originally diagnosed in December 2016 with biopsy of the liver, she received her first round of chemotherapy in [place]. She is relocated with her sister, and unfortunately has minimal financial and social support here. She had been having cognitive changes and her sister come to take care of her, but both the chest and relocate to [place]. She has had her first chemo at [facility] . She has been having increased falls, increased confusion and significant mental status changes through the last several weeks to months, but these had exacerbated the point where she was not manageable at home. In her workup, she had had some falls, CT scan showed no intracranial bleeds, MRI was negative for metastatic disease, do attributed most likely to some underlying dementia with significant behavioral disturbances including agitation, wandering, anxiety, delusions, and hallucinations. She was admitted on 04/19 for increasing confusion, and has since been treated with antibiotics as she continues to be pancytopenic from her chemotherapy. She has received 2 units of packed red blood cells, she does feel that she is somewhat clear, this is confirmed by her sister. Though she still does have some paranoia, poor short-term memory, and fluctuating mental status. She is quite impulsive, this is added to her risk of falls, she has with her functional decline needed some assistance with transfers. In the context of goal setting, weighing benefits and burdens of further treatment given she has been hospitalized now at least 2-3 times as a result of side effects from her chemotherapy, and given the seriousness of her illness a decision was made to transition to comfort care goals on discharge. Current goal is to get her medically stable, hopefully address some of her behavioral issues, get her pain under control, and find a setting for which they can do hospice. Social History - Living Situation Living arrangement: Other (patient relocated from [place], has room only until 05/15 but sister cannot stay with patient there) Living Situation: With family (sister Sneha willing to be primary caregiver if patient's behaviors remain manageable) Support System: Patient to be seen by home and community services for an evaluation, she is in the need of assistance for support, either for placement, or for home caregivers. Medications/Allergies - Medications Active Medication List: Active Medications Acetaminophen (Tylenol) 650 mg PO Q4HR PRN PRN Reason: Pain or Fever > 38C (100.4F) Last Admin: 04/23/17 01:33 Dose: 650 mg Albuterol/Ipratropium (Duoneb) 3 ml INH RTQ4H PRN PRN Reason: Wheezing Last Admin: 04/27/17 07:35 Dose: 3 ml Budesonide (Pulmicort) 0.5 mg INH RTBID [facility] Last Admin: 04/27/17 07:34 Dose: 0.5 mg Celecoxib (Celebrex) 200 mg PO DAILY@1700 [facility] Last Admin: 04/26/17 17:35 Dose: 200 mg Citalopram Hydrobromide (Celexa) 40 mg PO DAILY [facility] Last Admin: 04/27/17 09:44 Dose: 40 mg Clonazepam (Klonopin) 1 mg PO BID [facility] Last Admin: 04/27/17 09:44 Dose: 1 mg Famotidine (Pepcid) 20 mg PO DAILY [facility] Last Admin: 04/27/17 09:44 Dose: 20 mg Formoterol Fumarate (Perforomist) 20 mcg INH RTBID [facility] Last Admin: 04/27/17 07:34 Dose: 20 mcg Haloperidol (Haldol) 1 mg PO Q4H PRN PRN Reason: Agitation Last Admin: 04/26/17 17:45 Dose: 1 mg Heparin Sodium (Beef Lung) () 30 - 50 unit IVP ONCE PRN PRN Reason: Port Protocol (<24 hours) Stop: 05/25/17 03:21 Hydromorphone HCl (Dilaudid Inj Syringe) 0.5 mg IVP Q2H PRN PRN Reason: Pain 8 to 10 Piperacillin Sod/Tazobactam (Sod 4.5 gm/ Sodium Chloride) 100 mls @ 25 mls/hr IV Q8H [facility] Last Admin: 04/27/17 13:17 Dose: 25 mls/hr Insulin Aspart (Novolog) 3 - 11 unit SUBQ 0800,1200,1700,2100 [facility] PRN Reason: Protocol Last Admin: 04/27/17 11:51 Dose: 9 unit Insulin Glargine (Lantus Solostar) 25 unit SUBQ QPM [facility] Last Admin: 04/26/17 20:34 Dose: 25 unit Levothyroxine Sodium (Synthroid) 125 mcg PO QDAC [facility] Last Admin: 04/27/17 05:56 Dose: 125 mcg Olanzapine (Zyprexa Odt) 10 mg TL DAILY PRN PRN Reason: Agitation Last Admin: 04/26/17 15:03 Dose: 10 mg Oxycodone HCl (Roxicodone) 5 mg PO Q4H PRN PRN Reason: PAIN Last Admin: 04/27/17 01:05 Dose: 5 mg Prochlorperazine Maleate (Compazine) 10 mg PO Q6H PRN PRN Reason: Nausea / Vomiting Sodium Chloride (Normal Saline Flush 0.9%) 10 ml IVP PRN PRN PRN Reason: NEEDED PER PROVIDER ORDERS Last Admin: 04/26/17 05:08 Dose: 10 ml Sodium Chloride (Normal Saline Flush 0.9%) 10 ml IVP Q8HR [facility] Last Admin: 04/27/17 13:21 Dose: Not Given Temazepam (Restoril) 15 mg PO QPM PRN PRN Reason: Insomnia Last Admin: 04/25/17 21:50 Dose: 15 mg Rivaroxaban [Xarelto] 20 mg PO DAILY@1700 03/31/17 Zolpidem [Ambien] 5 mg PO QPM PRN 03/31/17 metFORMIN [Glucophage] 1,000 mg PO BIDWM 03/31/17 oxyCODONE [Roxicodone] 5 mg PO Q4H PRN 04/16/17 Celecoxib [CeleBREX] 200 mg PO DAILY@1700 04/19/17 Citalopram [CeleXA] 40 mg PO DAILY 04/19/17 Insulin Aspart [Novolog Flexpen] 2 - 9 units SUBQ DAILY 04/19/17 Insulin Degludec [Tresiba Flextouch U-100] 45 units SUBQ DAILY 11/09/17 Levothyroxine Sodium 125 mcg PO QDAC 04/19/17 Prochlorperazine [Compazine] 10 mg PO Q6H PRN 04/19/17 clonazePAM [Clonazepam] 1 mg PO BID 04/19/17 - Allergies Allergies/Adverse Reactions: Allergies Allergy/AdvReac Type Severity Reaction Status Date / Time Sulfa (Sulfonamide Allergy Unknown Verified 04/16/17 10:41 Antibiotics) Review of Systems - Constitutional Constitutional: reports: Fatigue, Poor appetite, Weight loss - Eyes Eyes: reports: Vision loss - Ears, Nose & Throat Ears, Nose & Throat: reports: Hearing loss, Postnasal drainage - Cardiovascular Cardiovascular: reports: Exertional dyspnea, Decr. exercise tolerance. denies: Chest pain - Respiratory Respiratory: reports: Cough (nonproductive), SOB with exertion - Gastrointestinal Gastrointestinal: reports: Poor appetite. denies: Constipation, Diarrhea, Nausea - Genitourinary Genitourinary: reports: Urgency, Incontinence (improved) - Musculoskeletal Musculoskeletal: reports: Limited range of motion (left knee, but improving), Muscle weakness - Integumentary Integumentary: reports: Dryness, Hair changes (alopecia) - Neurological Neurological: reports: General weakness, Memory problems - Psychiatric Psychiatric: reports: Anxiety, Behavior disturbances (fluctuating, improved today) - Hematologic/Lymphatic Hematologic/Lymphatic: reports: Anemia, Bruising, Bleeding tendencies, Recurrent infections, Other (received platelets and PRBCs, chemo eduardo) - All Other Systems All Other Systems: reports: Reviewed and negative Physical Exam - Vital Signs Vital Signs: Vital Signs x48h Temp Pulse Pulse Resp BP Pulse Ox 04/27/17 08:39 36.4 C L 71 16 123/55 L 96 04/27/17 07:34 65 16 - Physical Exam General Appearance: positive: No acute distress Eyes Bilateral: positive: Normal inspection ENT: positive: No signs of dehydration Neck: positive: No JVD, Trachea midline Cardiovascular: positive: Regular rate & rhythm Respiratory: positive: Diminished throughout, Other (right lower lobe without bs 1/3 up) Abdomen: positive: Non-tender, Soft, Nml bowel sounds Skin: positive: Pallor, Dryness, Other (left knee swelling improved and discoloration/brown fading) Extremities: positive: No pedal edema Neurologic/Psychiatric: positive: Mood/affect nml, Disoriented to place, Disoriented to time, Weakness Palliative Care - POLST Patient has POLST: Yes POLST Status: DNR, Limited Interventions Pain: Pain worsening, Location (upper abdominal across and radiating throught to back; describes as intermittent in nature; controlled with oxycodone) Tiredness/Fatigue: Moderate (4-6) Drowsiness/Sedation: None Nausea: None Depression: None Anxiety: Moderate (4-6) Dyspnea: Moderate (4-6) Anorexia: Moderate (4-6) Sleep: Variable sleep pattern Constipation: No Feelings of wellbeing/Perceived Quality of Life: Fair, Acceptable, Improved Performance Status: Patient feeling stronger, is walking short distances,Cueing regarding to her impulsivity and imbalance. - Palliative Care Discussion: Met with patient briefly, she does remember her sister being here earlier, and aware that they have found a storage unit for her stuff. Her understanding is Sneha is looking for a place for them to live, with the hope for her to have "hospice" at home. She does appear to understand the decision of hospice is without further chemotherapy, she is hopeful for more quantity and quality of time. She still presents with short-term memory issues, tangential thinking, but is less pressured in her speech and more appropriate in her answers. Met with Sneha, she has taking care of her father on hospice before. She does share her frustration at feeling like she is made bad decisions all the way along, including taking Mary out of her setting where they did have some support. She reports though the patient was quite insistent on this and did not want to in [place]. She feels today, if patient stayed at her current functioning as far as her cognition, she would be able to manage her impulsivity and provide oversight. Her fear is with the fluctuating moods, if she were to fall about being able to get her up, and how they would manage long- term. There are financial stressors, but she is going to go ahead and start looking for a single apartment, we did discuss with hospice would be able to provide hospital bed. We did review that she does not have furniture here but with some resources might be for that. My understanding from social work is they are to get an interview on 05/01 with home and community services, patient does need a safe discharge plan and currently today is not medically stable. The goal would be to have her counts and immune system intact, and treated for her current infections. I would suggest we do not restart her on Xarelto given her ongoing falls. Given this scenario if she does discharge home with hospice , is at high risk for sequela of a fall and or rehospitalization secondary to behaviors, but hopefully would be able to adequately medicate her in the home setting to provide support to Sneha in managing over the long-term. Agreed would continue to evaluate that she will move forward on looking for housing. Results - Lab Results Lab results reviewed: Yes Fish Bones: 04/27/17 05:10 04/27/17 05:10 Lab and Imaging Results: Lab Results x24hrs 04/27/17 04/27/17 04/27/17 Range/Units 11:00 07:28 05:10 WBC (4.8-10.8) x10^3/uL RBC (4.20-5.40) 10^6/uL Hgb (12.0-16.0) g/dL Hct (37.0-47.0) % MCV (81.0-99.0) fL MCH (27.0-31.0) pg MCHC (32.0-36.0) g/dL RDW (12.0-15.0) % Plt Count (130-450) 10^3/uL MPV (7.9-10.8) fL Neut # Lymph # [place] # Eos # Baso # Absolute Nucleated RBC Total Counted Band Neuts % (Manual) (0 - 10) % Nucleated RBC % Neutrophils # (Manual) (1.5-6.6) 10^3/uL Lymphocytes # (Manual) (1.5-3.5) 10^3/uL Monocytes # (Manual) (0.0-1.0) 10^3/uL Eosinophils # (Manual) (0-0.7) 10^3/uL Differential Comment Platelet Estimate (NORMAL) RBC Morph Micro Appear (NORMAL) Sodium 141 (135-145) mmol/L Potassium 3.6 (3.5-5.0) mmol/L Chloride 107 (101-111) mmol/L Carbon Dioxide 26 (21-32) mmol/L Anion Gap 8.0 (6-13) BUN 8 (6-20) mg/dL Creatinine 1.1 H (0.4-1.0) mg/dL Estimated GFR (MDRD) 50 L (>89) Glucose 120 H (70-100) mg/dL POC Whole Bld Glucose 303 H 112 H (70 - 100) mg/dL Calcium 8.3 L (8.5-10.3) mg/dL Total Bilirubin 0.7 (0.2-1.0) mg/dL AST 56 H (10-42) IU/L ALT 27 (10-60) IU/L Alkaline Phosphatase 177 H (42-121) IU/L Total Protein 5.7 L (6.7-8.2) g/dL Albumin 2.3 L (3.2-5.5) g/dL Globulin 3.4 (2.1-4.2) g/dL Albumin/Globulin Ratio 0.7 L (1.0-2.2) Blood Type Antibody Screen Crossmatch IS Only 04/27/17 04/26/17 04/26/17 Range/Units 05:10 20:30 16:51 WBC 2.4 L (4.8-10.8) x10^3/uL RBC 2.86 L (4.20-5.40) 10^6/uL Hgb 9.0 L (12.0-16.0) g/dL Hct 26.9 L (37.0-47.0) % MCV 94.2 (81.0-99.0) fL MCH 31.6 H (27.0-31.0) pg MCHC 33.6 (32.0-36.0) g/dL RDW 18.4 H (12.0-15.0) % Plt Count 44 L (130-450) 10^3/uL MPV 8.5 (7.9-10.8) fL Neut # Not Reportable Lymph # Not Reportable [place] # Not Reportable Eos # Not Reportable Baso # Not Reportable Absolute Nucleated RBC Not Reportable Total Counted 100 Band Neuts % (Manual) 0 (0 - 10) % Nucleated RBC % Not Reportable Neutrophils # (Manual) 1.6 (1.5-6.6) 10^3/uL Lymphocytes # (Manual) 0.6 L (1.5-3.5) 10^3/uL Monocytes # (Manual) 0.2 (0.0-1.0) 10^3/uL Eosinophils # (Manual) 0.0 (0-0.7) 10^3/uL Differential Comment MANUAL DIFFERENTIAL Platelet Estimate DECREASED (<130,000) (NORMAL) RBC Morph Micro Appear NORMAL APPEARANCE (NORMAL) Sodium (135-145) mmol/L Potassium (3.5-5.0) mmol/L Chloride (101-111) mmol/L Carbon Dioxide (21-32) mmol/L Anion Gap (6-13) BUN (6-20) mg/dL Creatinine (0.4-1.0) mg/dL Estimated GFR (MDRD) (>89) Glucose (70-100) mg/dL POC Whole Bld Glucose 99 238 H (70 - 100) mg/dL Calcium (8.5-10.3) mg/dL Total Bilirubin (0.2-1.0) mg/dL AST (10-42) IU/L ALT (10-60) IU/L Alkaline Phosphatase (42-121) IU/L Total Protein (6.7-8.2) g/dL Albumin (3.2-5.5) g/dL Globulin (2.1-4.2) g/dL Albumin/Globulin Ratio (1.0-2.2) Blood Type Antibody Screen Crossmatch IS Only 04/24/17 Range/Units 07:58 WBC (4.8-10.8) x10^3/uL RBC (4.20-5.40) 10^6/uL Hgb (12.0-16.0) g/dL Hct (37.0-47.0) % MCV (81.0-99.0) fL MCH (27.0-31.0) pg MCHC (32.0-36.0) g/dL RDW (12.0-15.0) % Plt Count (130-450) 10^3/uL MPV (7.9-10.8) fL Neut # Lymph # [place] # Eos # Baso # Absolute Nucleated RBC Total Counted Band Neuts % (Manual) (0 - 10) % Nucleated RBC % Neutrophils # (Manual) (1.5-6.6) 10^3/uL Lymphocytes # (Manual) (1.5-3.5) 10^3/uL Monocytes # (Manual) (0.0-1.0) 10^3/uL Eosinophils # (Manual) (0-0.7) 10^3/uL Differential Comment Platelet Estimate (NORMAL) RBC Morph Micro Appear (NORMAL) Sodium (135-145) mmol/L Potassium (3.5-5.0) mmol/L Chloride (101-111) mmol/L Carbon Dioxide (21-32) mmol/L Anion Gap (6-13) BUN (6-20) mg/dL Creatinine (0.4-1.0) mg/dL Estimated GFR (MDRD) (>89) Glucose (70-100) mg/dL POC Whole Bld Glucose (70 - 100) mg/dL Calcium (8.5-10.3) mg/dL Total Bilirubin (0.2-1.0) mg/dL AST (10-42) IU/L ALT (10-60) IU/L Alkaline Phosphatase (42-121) IU/L Total Protein (6.7-8.2) g/dL Albumin (3.2-5.5) g/dL Globulin (2.1-4.2) g/dL Albumin/Globulin Ratio (1.0-2.2) Blood Type A POSITIVE Antibody Screen NEGATIVE Crossmatch IS Only See Detail Impression and Recommendations - Palliative Care Impression: This is a 67-year-old woman with stage IV pancreatic cancer with metastases to the liver, lymph nodes, and lung. She is currently acutely hospitalized for her pancytopenia, altered mental status, fluctuating cognitive status and functional decline. Today she does present improved but still with short-term memory deficits, tangential thinking, and impulsivity. If patient's behaviors are manageable, and safe discharge plan could be arranged, as well as housing needs addressed. Sneha would consider taking her home with home hospice. Recommendations/Counseling Done: 1. Pancreatic cancer stage IV. Patient currently with pancytopenia and her most recent chemotherapy, she has received blood product support, is hitting her eduardo. Spoke with Dr. Perez, supportive of hospice referral. Patient choosing no further active treatment. Will transition to hospice on discharge and when medically stable. 2. Pain of neoplastic origin. Pain currently controlled with intermittent oxycodone about 20 mg total per day. Given her fluctuating mental status, would continue to do intermittent dosing. 3. Cognitive deficits with behavioral issues including but not limited to impulsivity, intermittent hallucinations, and delusions. She also has intermittent paranoia. This is been exacerbated with her recent hospitalization and chemotherapy treatment. Does appear improved today, unclear what her baseline will be.This may impact her ability to return to the home setting for end-of-life care.The hospice may be able to titrate her medications a bit more aggressively when she is out of the hospital setting. 4. Advanced care planning. Patient does appear quite comfortable with proceeding with home hospice, Sneha would like to be a primary caregiver for this, though rightfully so has some hesitation given her fluctuating mental status. Given the limitations of her resources and further need for support, would consider continued to evaluate and try to obtain setting for this patient , though ultimately would be both in the patient's best interest and Sneha would feel better if she were able to do home hospice. Will continue to work on both plans simultaneously, recognizing there is pros and cons for both settings. Time Spent: 30 minutes spent with rater than 50% of this done in counseling, family conference, and coordination of care did follow up with home hospice to give them a heads up update to medical staff specialist and dance studio manager.
[2017-04-27] MEDS: CELECOXIB 100 MG CAPSULE PO SCH (15:41)
--- NOTE | 2017-04-27 16:43 | PROVIDER PROGRESS NOTE ---
Subjective - Prog Note Date Prog Note Date: 04/27/17 - Subjective Pt reports feeling: Improved Current Medications - Current Medications Current Medications: Active Medications Acetaminophen (Tylenol) 650 mg PO Q4HR PRN PRN Reason: Pain or Fever > 38C (100.4F) Last Admin: 04/23/17 01:33 Dose: 650 mg Albuterol/Ipratropium (Duoneb) 3 ml INH RTQ4H PRN PRN Reason: Wheezing Last Admin: 04/27/17 07:35 Dose: 3 ml Budesonide (Pulmicort) 0.5 mg INH RTBID [facility] Last Admin: 04/27/17 07:34 Dose: 0.5 mg Celecoxib (Celebrex) 200 mg PO DAILY@1700 [facility] Last Admin: 04/27/17 15:41 Dose: 200 mg Citalopram Hydrobromide (Celexa) 40 mg PO DAILY [facility] Last Admin: 04/27/17 09:44 Dose: 40 mg Clonazepam (Klonopin) 1 mg PO BID [facility] Last Admin: 04/27/17 09:44 Dose: 1 mg Famotidine (Pepcid) 20 mg PO DAILY [facility] Last Admin: 04/27/17 09:44 Dose: 20 mg Formoterol Fumarate (Perforomist) 20 mcg INH RTBID [facility] Last Admin: 04/27/17 07:34 Dose: 20 mcg Haloperidol (Haldol) 1 mg PO Q4H PRN PRN Reason: Agitation Last Admin: 04/26/17 17:45 Dose: 1 mg Heparin Sodium (Beef Lung) () 30 - 50 unit IVP ONCE PRN PRN Reason: Port Protocol (<24 hours) Stop: 05/25/17 03:21 Hydromorphone HCl (Dilaudid Inj Syringe) 0.5 mg IVP Q2H PRN PRN Reason: Pain 8 to 10 Piperacillin Sod/Tazobactam (Sod 4.5 gm/ Sodium Chloride) 100 mls @ 25 mls/hr IV Q8H [facility] Last Admin: 04/27/17 13:17 Dose: 25 mls/hr Insulin Aspart (Novolog) 3 - 11 unit SUBQ 0800,1200,1700,2100 [facility] PRN Reason: Protocol Last Admin: 04/27/17 11:51 Dose: 9 unit Insulin Glargine (Lantus Solostar) 25 unit SUBQ QPM [facility] Last Admin: 04/26/17 20:34 Dose: 25 unit Levothyroxine Sodium (Synthroid) 125 mcg PO QDAC [facility] Last Admin: 04/27/17 05:56 Dose: 125 mcg Olanzapine (Zyprexa Odt) 10 mg TL DAILY PRN PRN Reason: Agitation Last Admin: 04/26/17 15:03 Dose: 10 mg Oxycodone HCl (Roxicodone) 5 mg PO Q4H PRN PRN Reason: PAIN Last Admin: 04/27/17 15:41 Dose: 5 mg Prochlorperazine Maleate (Compazine) 10 mg PO Q6H PRN PRN Reason: Nausea / Vomiting Sodium Chloride (Normal Saline Flush 0.9%) 10 ml IVP PRN PRN PRN Reason: NEEDED PER PROVIDER ORDERS Last Admin: 04/26/17 05:08 Dose: 10 ml Sodium Chloride (Normal Saline Flush 0.9%) 10 ml IVP Q8HR [facility] Last Admin: 04/27/17 13:21 Dose: Not Given Temazepam (Restoril) 15 mg PO QPM PRN PRN Reason: Insomnia Last Admin: 04/25/17 21:50 Dose: 15 mg Rivaroxaban [Xarelto] 20 mg PO DAILY@0 03/31/17 Zolpidem [Ambien] 5 mg PO QPM PRN 03/31/17 metFORMIN [Glucophage] 1,000 mg PO BIDWM 03/31/17 oxyCODONE [Roxicodone] 5 mg PO Q4H PRN 04/16/17 Celecoxib [CeleBREX] 200 mg PO DAILY@1700 04/19/17 Citalopram [CeleXA] 40 mg PO DAILY 04/19/17 Insulin Aspart [Novolog Flexpen] 2 - 9 units SUBQ DAILY 04/19/17 Insulin Degludec [Tresiba Flextouch U-100] 45 units SUBQ DAILY 04/19/17 Levothyroxine Sodium 125 mcg PO QDAC 04/19/17 Prochlorperazine [Compazine] 10 mg PO Q6H PRN 04/19/17 clonazePAM [Clonazepam] 1 mg PO BID 04/19/17 Objective - Vital Signs/Intake & Output Reviewed Vital Signs: Yes Vital Signs: Vital Signs x48h Temp Pulse Resp Pulse Ox 04/27/17 15:26 36.3 C L 64 17 100 Intake & Output: Intake & Output 04/24/17 04/25/17 04/26/17 04/27/17 23:59 23:59 23:59 23:59 Intake Total 1820 2620 1578 1502.500 Output Total 250 Balance 1820 2370 1578 1502.500 - Objective General Appearance: positive: No acute distress, Alert. negative: Lethargic Eyes Bilateral: positive: Normal inspection, PERRL, No lid inflammation, Conjunctivae nml ENT: positive: ENT inspection nml, Pharynx nml, No signs of dehydration. negative: Purulent nasal drainage, Pharyngeal erythema, Oral lesions, Dry mucous membranes Neck: positive: Nml inspection, Thyroid nml, No JVD, Trachea midline. negative : Thyromegaly, Lymphadenopathy (R), Lymphadenopathy (L), Stiff neck, Carotid bruit, Swelling/bruising, Tracheal deviation Respiratory: positive: Chest non-tender, No respiratory distress, Breath sounds nml. negative: Wheezes, Rales, Rhonchi Cardiovascular: positive: Regular rate & rhythm, No murmur, No gallop. negative : Irregularly irregular, Extrasystoles, Tachycardia, Bradycardia, Systolic murmur, Diastolic murmur Peripheral Pulses: 2+ Radial (R), 2+ Radial (L), 2+ Dorsalis pedis (R), 2+ Dorsalis pedis (L) Abdomen: positive: Non-tender, No organomegaly, Nml bowel sounds, No distention. negative: Tenderness, Guarding, Rebound Back: positive: Nml inspection. negative: CVA tenderness (R), CVA tenderness (L ) Skin: positive: Color nml, No rash, Warm, Dry. negative: Cyanosis, Diaphoresis , Pallor, Skin rash - Lab Results Fish Bones: 04/27/17 05:10 04/27/17 05:10 Other Labs: Lab Results x24hrs 04/27/17 04/27/17 04/27/17 Range/Units 16:26 11:00 07:28 WBC (4.8-10.8) x10^3/uL RBC (4.20-5.40) 10^6/uL Hgb (12.0-16.0) g/dL Hct (37.0-47.0) % MCV (81.0-99.0) fL MCH (27.0-31.0) pg MCHC (32.0-36.0) g/dL RDW (12.0-15.0) % Plt Count (130-450) 10^3/uL MPV (7.9-10.8) fL Neut # Lymph # [place] # Eos # Baso # Absolute Nucleated RBC Total Counted Band Neuts % (Manual) (0 - 10) % Nucleated RBC % Neutrophils # (Manual) (1.5-6.6) 10^3/uL Lymphocytes # (Manual) (1.5-3.5) 10^3/uL Monocytes # (Manual) (0.0-1.0) 10^3/uL Eosinophils # (Manual) (0-0.7) 10^3/uL Differential Comment Platelet Estimate (NORMAL) RBC Morph Micro Appear (NORMAL) Sodium (135-145) mmol/L Potassium (3.5-5.0) mmol/L Chloride (101-111) mmol/L Carbon Dioxide (21-32) mmol/L Anion Gap (6-13) BUN (6-20) mg/dL Creatinine (0.4-1.0) mg/dL Estimated GFR (MDRD) (>89) Glucose (70-100) mg/dL POC Whole Bld Glucose 186 H 303 H 112 H (70 - 100) mg/dL Calcium (8.5-10.3) mg/dL Total Bilirubin (0.2-1.0) mg/dL AST (10-42) IU/L ALT (10-60) IU/L Alkaline Phosphatase (42-121) IU/L Total Protein (6.7-8.2) g/dL Albumin (3.2-5.5) g/dL Globulin (2.1-4.2) g/dL Albumin/Globulin Ratio (1.0-2.2) Blood Type Antibody Screen Crossmatch IS Only 04/27/17 04/27/17 04/26/17 Range/Units 05:10 05:10 20:30 WBC 2.4 L (4.8-10.8) x10^3/uL RBC 2.86 L (4.20-5.40) 10^6/uL Hgb 9.0 L (12.0-16.0) g/dL Hct 26.9 L (37.0-47.0) % MCV 94.2 (81.0-99.0) fL MCH 31.6 H (27.0-31.0) pg MCHC 33.6 (32.0-36.0) g/dL RDW 18.4 H (12.0-15.0) % Plt Count 44 L (130-450) 10^3/uL MPV 8.5 (7.9-10.8) fL Neut # Not Reportable Lymph # Not Reportable [place] # Not Reportable Eos # Not Reportable Baso # Not Reportable Absolute Nucleated RBC Not Reportable Total Counted 100 Band Neuts % (Manual) 0 (0 - 10) % Nucleated RBC % Not Reportable Neutrophils # (Manual) 1.6 (1.5-6.6) 10^3/uL Lymphocytes # (Manual) 0.6 L (1.5-3.5) 10^3/uL Monocytes # (Manual) 0.2 (0.0-1.0) 10^3/uL Eosinophils # (Manual) 0.0 (0-0.7) 10^3/uL Differential Comment MANUAL DIFFERENTIAL Platelet Estimate DECREASED (<130,000) (NORMAL) RBC Morph Micro Appear NORMAL APPEARANCE (NORMAL) Sodium 141 (135-145) mmol/L Potassium 3.6 (3.5-5.0) mmol/L Chloride 107 (101-111) mmol/L Carbon Dioxide 26 (21-32) mmol/L Anion Gap 8.0 (6-13) BUN 8 (6-20) mg/dL Creatinine 1.1 H (0.4-1.0) mg/dL Estimated GFR (MDRD) 50 L (>89) Glucose 120 H (70-100) mg/dL POC Whole Bld Glucose 99 (70 - 100) mg/dL Calcium 8.3 L (8.5-10.3) mg/dL Total Bilirubin 0.7 (0.2-1.0) mg/dL AST 56 H (10-42) IU/L ALT 27 (10-60) IU/L Alkaline Phosphatase 177 H (42-121) IU/L Total Protein 5.7 L (6.7-8.2) g/dL Albumin 2.3 L (3.2-5.5) g/dL Globulin 3.4 (2.1-4.2) g/dL Albumin/Globulin Ratio 0.7 L (1.0-2.2) Blood Type Antibody Screen Crossmatch IS Only 04/26/17 04/24/17 Range/Units 16:51 07:58 WBC (4.8-10.8) x10^3/uL RBC (4.20-5.40) 10^6/uL Hgb (12.0-16.0) g/dL Hct (37.0-47.0) % MCV (81.0-99.0) fL MCH (27.0-31.0) pg MCHC (32.0-36.0) g/dL RDW (12.0-15.0) % Plt Count (130-450) 10^3/uL MPV (7.9-10.8) fL Neut # Lymph # [place] # Eos # Baso # Absolute Nucleated RBC Total Counted Band Neuts % (Manual) (0 - 10) % Nucleated RBC % Neutrophils # (Manual) (1.5-6.6) 10^3/uL Lymphocytes # (Manual) (1.5-3.5) 10^3/uL Monocytes # (Manual) (0.0-1.0) 10^3/uL Eosinophils # (Manual) (0-0.7) 10^3/uL Differential Comment Platelet Estimate (NORMAL) RBC Morph Micro Appear (NORMAL) Sodium (135-145) mmol/L Potassium (3.5-5.0) mmol/L Chloride (101-111) mmol/L Carbon Dioxide (21-32) mmol/L Anion Gap (6-13) BUN (6-20) mg/dL Creatinine (0.4-1.0) mg/dL Estimated GFR (MDRD) (>89) Glucose (70-100) mg/dL POC Whole Bld Glucose 238 H (70 - 100) mg/dL Calcium (8.5-10.3) mg/dL Total Bilirubin (0.2-1.0) mg/dL AST (10-42) IU/L ALT (10-60) IU/L Alkaline Phosphatase (42-121) IU/L Total Protein (6.7-8.2) g/dL Albumin (3.2-5.5) g/dL Globulin (2.1-4.2) g/dL Albumin/Globulin Ratio (1.0-2.2) Blood Type A POSITIVE Antibody Screen NEGATIVE Crossmatch IS Only See Detail Assessment/Plan - Problem List (1) Anemia Impression: Impression: may derive from her recently chemotherapy pt's HGB is 9 after transfusion of two units of blood continue to daily lab monitor vital check pt's HGB is down to 6.7, and dizziness. pt was ordered two units of blood continue lab monitor today pt's HGB is up slight to 7.2, and walked with nurse and tech. it seems pt is asymptomatic. pt is status post of chemotherapy will closely monitor CBC, transfusion of blood as needed today HGB 7, pt is asymptomatic, HR without changing, no SOB, no chest pain. Pt denies any acute GI bleeding, vomiting. pt had a chemotherapy 7 days ago, plus pt had stage 4 of pancreatic cancer. continue closely monitor pt's HGB and HCT, will transfuse of blood as clinical needed lab monitor, vital, tele monitor pt cross match ordered. (2) thrombocytopenia plt is 44,000, continue to improve no bleeding reported continue closely monitor, daily lab plt is up to 36,000 after transfusion of plt will continue CBC monitor daily monitor any bleeding closely pt has mild nose bleeding cross and match for plt transfusion of one unit of plt will recheck lab, and follow up the result closely monitor pt if any bleeding today pt's plt is 15, significant lower, but pt denies any acute bleeding will closely monitor pt if any bleeding, with lab, vital, tele, nurse around cross match, will transfusion plasma as needed lab monitor, vital, tele, nurse monitor pt (3) leukocytopenia WBC is 2.4, is improved WBC is 1.8, still severe lower neuropenia precaution continue continue antibiotics pt's WBC is down to 1.7, she is status post chemotherapy Neuropenia precaution pt is on Zosyn now daily lab and vital monitor (4) Pancreatic cancer metastasized to liver Impression: follow up consult of palliative care, pt choose no further active treatment, Will transition to hospice on discharge. Continued palliative, hold chemotherapy since pt has significant reverse reaction from chemotherapy continue palliative care, follow up palliative information systems consultant Lauren discussed with pt and pt's family, pt is still no making the final hospice care decision yet. 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 A liver node biopsy performed on 12/27/16 confirmed adenocarcinoma. Plan: Continued palliative chemotherapy through Right chest port with gemcitabine and Abraxane IV per MAC. Oncology GRINDER OPERATOR [employer] visited today to share plan of care, which is continued monitoring. Patient was supposed to begin another portion of chemo this week. They will keep us informed as to the next course of action expected. (5) Progressive focal motor weakness Impression: weakness, continue PT/OT fall precaution This has been a progressive problem as evidence by increased falls with injury and debility. Plan: PT/OT consulted after acute illness and has now signed off. Non-skid foot wear should be worn and a bed/chair alarm at all times since patient continues to be impulsive and unaware of the likelihood of a subsequent fall. PT evaluation was ordered today to do a home safety evaluation. They noted that she is able to ambulate with only supervision, although she displays lack of awareness and judgment. At night patient has been exhibiting signs of "sundowning" which may lead to day time weakness. (6) Frequent falls Impression: continue current treatment. no fall reported closely monitor, fall precaution With injury to head, LUE and LLE injuries noted. Bruising noted to left knee and extend to ankle/foot that is improving each day. Patient remains impulsive and looses awareness of surroundings at times. Plan: Bed or chair alarm for safety. PT/OT consulted after acute illness. Patient should be reminded to wear non-skid socks and to call for help since she remains unaware of her risk of falls. PT completed a home safety evaluation and note that she has a good steady gait, but may need supervision if living alone. (7) Type II diabetes mellitus Impression: stable, continue slide scale, hypoglycemia protocol HgA1C was 7.6 on 04/20/17. Blood glucose on chemistry lab finding upon admit was over 400mg/dl. Suspect related to stress/illness. Blood sugars much improved today and were between 179-301. Plan: Sliding scale insulin ordered with POC blood glucose checks. Started long -acting insulin at 15U at hs, will increase to 25U for tonight. (8) Dementia associated with other underlying disease Impression: pt is actually more oriented today neuro check vital, lab monitor Patient has increased confusion, suspect Sundowning. Vitamin B12 level was elevated above 1300. Normal [place] level. (9) hypothyroidism resume levothyoxine (10) pneumonia: pt's lung is clear, room air with 100%, no cough and fever or chill. will stop the antibiotics when leukocytopenia is more stable
[2017-04-27] MEDS: PIPERACILLIN/TAZOBACTAM 3.375 GM in SODIUM CHLORIDE 0.9% MINIBAG 100 ML IV SCH (21:13)
[2017-04-27] MEDS: INSULIN GLARGINE 300 UNIT/3 ML PEN SUBQ SCH (21:15)
[2017-04-27] MEDS: HYDROmorphone 0.5 MG/0.5 ML SYRINGE IVP PRN (21:15)
[2017-04-28] MEDS: PIPERACILLIN/TAZOBACTAM 3.375 GM in SODIUM CHLORIDE 0.9% MINIBAG 100 ML IV SCH (04:58)
[2017-04-28] MEDS: SODIUM CHLORIDE FLUSH 0.9% 10 ML SYRINGE IVP PRN ×3 (04:59→15:55)
[2017-04-28] MEDS: SODIUM CHLORIDE FLUSH 0.9% 10 ML SYRINGE IVP SCH ×3 (04:59→22:49)
[2017-04-28 05:53] LABS: BASOPHILS % (AUTO) 0.3 %; EOSINOPHILS % (AUTO) 1.3 %; HCT - HEMATOCRIT 28.2 % (37.0-47.0); HGB - HEMOGLOBIN 9.4 g/dL (12.0-16.0); LYMPHOCYTES # (AUTO) 0.8 10^3/uL (1.5-3.5); LYMPHOCYTES % (AUTO) 28.1 %; MEAN CORPUSCULAR HEMOGLOBIN 31.9 pg (27.0-31.0); MEAN CORPUSCULAR HGB CONC 33.3 g/dL (32.0-36.0); MEAN CORPUSCULAR VOLUME 95.8 fL (81.0-99.0); MEAN PLATELET VOLUME 9.1 fL (7.9-10.8); MONOCYTES # (AUTO) 0.4 10^3/uL (0.0-1.0); MONOCYTES % (AUTO) 12.9 %; NEUTROPHILS # (AUTO) 1.6 10^3/uL (1.5-6.6); NEUTROPHILS % (AUTO) 57.4 %; NUCLEATED RED BLOOD CELLS AUTO 0.2 /100WBC; RED BLOOD COUNT 2.94 10^6/uL (4.20-5.40); RED CELL DISTRIBUTION WIDTH 17.8 % (12.0-15.0); UNCORRECTED WHITE BLOOD COUNT 2.9 x10^3/uL; WHITE BLOOD COUNT 2.9 x10^3/uL (4.8-10.8)
[2017-04-28 05:57] LABS: ALBUMIN/GLOBULIN RATIO 0.7 (1.0-2.2); BILIRUBIN,TOTAL 0.3 mg/dL (0.2-1.0); CALCIUM 8.4 mg/dL (8.5-10.3); POTASSIUM 3.6 mmol/L (3.5-5.0)
[2017-04-28] MEDS: LEVOTHYROXINE 125 MCG TABLET PO SCH (06:45)
[2017-04-28] MEDS: BUDESONIDE 0.5 MG/2 ML NEB INH SCH ×2 (09:23→18:08)
[2017-04-28] MEDS: FORMOTEROL FUMARATE NEB 20 MCG/2 ML INH SCH ×2 (09:23→18:09)
[2017-04-28] MEDS: CITALOPRAM 10 MG TABLET PO SCH (09:28)
[2017-04-28] MEDS: INSULIN ASPART 300 UNIT/3 ML PEN SUBQ SCH ×4 (09:28→20:38)
[2017-04-28] MEDS: FAMOTIDINE 20 MG TABLET PO SCH (09:29)
[2017-04-28] MEDS: clonazePAM 0.5 MG TABLET PO SCH ×2 (09:29→20:39)
[2017-04-28] MEDS ORDERED: PIPERACILLIN/TAZOBACTAM 3.375 GM in SODIUM CHLORIDE 0.9% MINIBAG 100 ML IV SCH (13:00)
--- NOTE | 2017-04-28 13:28 | PROVIDER PROGRESS NOTE ---
Subjective - Prog Note Date Prog Note Date: 04/28/17 - Subjective Pt reports feeling: Improved Subjective: pt state she feels better. no other complains Current Medications - Current Medications Current Medications: Active Medications Acetaminophen (Tylenol) 650 mg PO Q4HR PRN PRN Reason: Pain or Fever > 38C (100.4F) Last Admin: 04/23/17 01:33 Dose: 650 mg Albuterol/Ipratropium (Duoneb) 3 ml INH RTQ4H PRN PRN Reason: Wheezing Last Admin: 04/27/17 07:35 Dose: 3 ml Budesonide (Pulmicort) 0.5 mg INH RTBID [facility] Last Admin: 04/28/17 09:23 Dose: 0.5 mg Celecoxib (Celebrex) 200 mg PO DAILY@1700 [facility] Last Admin: 04/27/17 15:41 Dose: 200 mg Citalopram Hydrobromide (Celexa) 40 mg PO DAILY [facility] Last Admin: 04/28/17 09:28 Dose: 40 mg Clonazepam (Klonopin) 1 mg PO BID [facility] Last Admin: 04/28/17 09:29 Dose: 1 mg Famotidine (Pepcid) 20 mg PO DAILY [facility] Last Admin: 04/28/17 09:29 Dose: 20 mg Formoterol Fumarate (Perforomist) 20 mcg INH RTBID [facility] Last Admin: 04/28/17 09:23 Dose: 20 mcg Haloperidol (Haldol) 1 mg PO Q4H PRN PRN Reason: Agitation Last Admin: 04/26/17 17:45 Dose: 1 mg Heparin Sodium (Beef Lung) () 30 - 50 unit IVP ONCE PRN PRN Reason: Port Protocol (<24 hours) Stop: 05/25/17 03:21 Hydromorphone HCl (Dilaudid Inj Syringe) 0.5 mg IVP Q2H PRN PRN Reason: Pain 8 to 10 Last Admin: 04/27/17 21:15 Dose: 0.5 mg Piperacillin Sod/Tazobactam (Sod 3.375 gm/ Sodium Chloride) 100 mls @ 25 mls/ hr IV Q8H [facility] Last Infusion: 04/28/17 08:58 Dose: Infused Insulin Aspart (Novolog) 3 - 11 unit SUBQ 0800,1200,1700,2100 [facility] PRN Reason: Protocol Last Admin: 04/28/17 11:59 Dose: 3 unit Insulin Glargine (Lantus Solostar) 25 unit SUBQ QPM [facility] Last Admin: 04/27/17 21:15 Dose: 25 unit Levothyroxine Sodium (Synthroid) 125 mcg PO QDAC [facility] Last Admin: 04/28/17 06:45 Dose: 125 mcg Olanzapine (Zyprexa Odt) 10 mg TL DAILY PRN PRN Reason: Agitation Last Admin: 04/26/17 15:03 Dose: 10 mg Oxycodone HCl (Roxicodone) 5 mg PO Q4H PRN PRN Reason: PAIN Last Admin: 04/27/17 15:41 Dose: 5 mg Prochlorperazine Maleate (Compazine) 10 mg PO Q6H PRN PRN Reason: Nausea / Vomiting Sodium Chloride (Normal Saline Flush 0.9%) 10 ml IVP PRN PRN PRN Reason: NEEDED PER PROVIDER ORDERS Last Admin: 04/28/17 09:29 Dose: 10 ml Sodium Chloride (Normal Saline Flush 0.9%) 10 ml IVP Q8HR [facility] Last Admin: 04/28/17 04:59 Dose: 10 ml Temazepam (Restoril) 15 mg PO QPM PRN PRN Reason: Insomnia Last Admin: 04/25/17 21:50 Dose: 15 mg Rivaroxaban [Xarelto] 20 mg PO DAILY@1700 03/31/17 Zolpidem [Ambien] 5 mg PO QPM PRN 03/31/17 metFORMIN [Glucophage] 1,000 mg PO BIDWM 03/31/17 oxyCODONE [Roxicodone] 5 mg PO Q4H PRN 04/16/17 Celecoxib [CeleBREX] 200 mg PO DAILY@1700 04/19/17 Citalopram [CeleXA] 40 mg PO DAILY 04/19/17 Insulin Aspart [Novolog Flexpen] 2 - 9 units SUBQ DAILY 04/19/17 Insulin Degludec [Tresiba Flextouch U-100] 45 units SUBQ DAILY 04/19/17 Levothyroxine Sodium 125 mcg PO QDAC 04/19/17 Prochlorperazine [Compazine] 10 mg PO Q6H PRN 04/19/17 clonazePAM [Clonazepam] 1 mg PO BID 04/19/17 Objective - Vital Signs/Intake & Output Reviewed Vital Signs: Yes Vital Signs: Vital Signs x48h Temp Pulse Pulse Resp BP Pulse Ox 04/28/17 09:23 68 16 04/28/17 08:36 36.5 C 68 18 127/56 L 96 Intake & Output: Intake & Output 04/25/17 04/26/17 04/27/17 04/28/17 23:59 23:59 23:59 23:59 Intake Total 2620 1578 3112.500 560 Output Total 250 Balance 2370 1578 3112.500 560 - Objective General Appearance: positive: No acute distress, Alert. negative: Lethargic Eyes Bilateral: positive: Normal inspection, PERRL, No lid inflammation, Conjunctivae nml ENT: positive: ENT inspection nml, Pharynx nml, No signs of dehydration. negative: Purulent nasal drainage, Pharyngeal erythema, Oral lesions Neck: positive: Nml inspection, Thyroid nml, Trachea midline. negative: Thyromegaly, Lymphadenopathy (R), Lymphadenopathy (L), Stiff neck, Carotid bruit , Swelling/bruising, Tracheal deviation Respiratory: positive: Chest non-tender, No respiratory distress, Breath sounds nml. negative: Wheezes, Rales, Rhonchi Cardiovascular: positive: Regular rate & rhythm, No murmur, No gallop. negative : Irregularly irregular, Extrasystoles, Tachycardia, Bradycardia, Systolic murmur, Diastolic murmur Peripheral Pulses: 2+ Radial (R), 2+ Radial (L), 2+ Dorsalis pedis (R), 2+ Dorsalis pedis (L) Abdomen: positive: Non-tender, No organomegaly, Nml bowel sounds, No distention. negative: Tenderness, Guarding, Rebound Back: positive: Nml inspection. negative: CVA tenderness (R), CVA tenderness (L ) Skin: positive: Color nml, No rash, Warm, Dry. negative: Cyanosis, Diaphoresis , Pallor, Skin rash Extremities: positive: Non-tender, Full ROM, Nml appearance. negative: Pedal edema, Joint swelling, Chrystal's sign/cords Neurologic/Psychiatric: positive: Motor nml, Sensation nml, Mood/affect nml. negative: Sensory loss, Facial droop, Slurred/abnml speech, Depressed mood/ affect - Lab Results Fish Bones: 04/28/17 05:00 04/28/17 05:00 Other Labs: Lab Results x24hrs 04/28/17 04/28/17 04/28/17 Range/Units 11:41 07:50 05:00 WBC (4.8-10.8) x10^3/uL RBC (4.20-5.40) 10^6/uL Hgb (12.0-16.0) g/dL Hct (37.0-47.0) % MCV (81.0-99.0) fL MCH (27.0-31.0) pg MCHC (32.0-36.0) g/dL RDW (12.0-15.0) % Plt Count (130-450) 10^3/uL MPV (7.9-10.8) fL Neut # (1.5-6.6) 10^3/uL Lymph # (1.5-3.5) 10^3/uL Crawford # (0.0-1.0) 10^3/uL Eos # (0.0-0.7) 10^3/uL Baso # (0.0-0.1) 10^3/uL Absolute Nucleated RBC x10^3/uL Nucleated RBC % /100WBC Sodium 140 (135-145) mmol/L Potassium 3.6 (3.5-5.0) mmol/L Chloride 106 (101-111) mmol/L Carbon Dioxide 27 (21-32) mmol/L Anion Gap 7.0 (6-13) BUN 9 (6-20) mg/dL Creatinine 1.0 (0.4-1.0) mg/dL Estimated GFR (MDRD) 55 L (>89) Glucose 122 H (70-100) mg/dL POC Whole Bld Glucose 163 H 97 (70 - 100) mg/dL Calcium 8.4 L (8.5-10.3) mg/dL Total Bilirubin 0.3 (0.2-1.0) mg/dL AST 49 H (10-42) IU/L ALT 25 (10-60) IU/L Alkaline Phosphatase 195 H (42-121) IU/L Total Protein 6.0 L (6.7-8.2) g/dL Albumin 2.4 L (3.2-5.5) g/dL Globulin 3.6 (2.1-4.2) g/dL Albumin/Globulin Ratio 0.7 L (1.0-2.2) 04/28/17 04/27/17 04/27/17 Range/Units 05:00 20:52 16:26 WBC 2.9 L (4.8-10.8) x10^3/uL RBC 2.94 L (4.20-5.40) 10^6/uL Hgb 9.4 L (12.0-16.0) g/dL Hct 28.2 L (37.0-47.0) % MCV 95.8 (81.0-99.0) fL MCH 31.9 H (27.0-31.0) pg MCHC 33.3 (32.0-36.0) g/dL RDW 17.8 H (12.0-15.0) % Plt Count 67 L (130-450) 10^3/uL MPV 9.1 (7.9-10.8) fL Neut # 1.6 (1.5-6.6) 10^3/uL Lymph # 0.8 L (1.5-3.5) 10^3/uL Crawford # 0.4 (0.0-1.0) 10^3/uL Eos # 0.0 (0.0-0.7) 10^3/uL Baso # 0.0 (0.0-0.1) 10^3/uL Absolute Nucleated RBC 0.00 x10^3/uL Nucleated RBC % 0.2 /100WBC Sodium (135-145) mmol/L Potassium (3.5-5.0) mmol/L Chloride (101-111) mmol/L Carbon Dioxide (21-32) mmol/L Anion Gap (6-13) BUN (6-20) mg/dL Creatinine (0.4-1.0) mg/dL Estimated GFR (MDRD) (>89) Glucose (70-100) mg/dL POC Whole Bld Glucose 181 H 186 H (70 - 100) mg/dL Calcium (8.5-10.3) mg/dL Total Bilirubin (0.2-1.0) mg/dL AST (10-42) IU/L ALT (10-60) IU/L Alkaline Phosphatase (42-121) IU/L Total Protein (6.7-8.2) g/dL Albumin (3.2-5.5) g/dL Globulin (2.1-4.2) g/dL Albumin/Globulin Ratio (1.0-2.2) Assessment/Plan - Problem List (1) Anemia Impression: Impression: HGB 9.4, continue to improve wait for replacement may derive from her recently chemotherapy pt's HGB is 9 after transfusion of two units of blood continue to daily lab monitor vital check pt's HGB is down to 6.7, and dizziness. pt was ordered two units of blood continue lab monitor today pt's HGB is up slight to 7.2, and walked with nurse and tech. it seems pt is asymptomatic. pt is status post of chemotherapy will closely monitor CBC, transfusion of blood as needed today HGB 7, pt is asymptomatic, HR without changing, no SOB, no chest pain. Pt denies any acute GI bleeding, vomiting. pt had a chemotherapy 7 days ago, plus pt had stage 4 of pancreatic cancer. continue closely monitor pt's HGB and HCT, will transfuse of blood as clinical needed lab monitor, vital, tele monitor pt cross match ordered. (2) thrombocytopenia plt 67, improved plt is 44,000, continue to improve no bleeding reported continue closely monitor, daily lab plt is up to 36,000 after transfusion of plt will continue CBC monitor daily monitor any bleeding closely pt has mild nose bleeding cross and match for plt transfusion of one unit of plt will recheck lab, and follow up the result closely monitor pt if any bleeding today pt's plt is 15, significant lower, but pt denies any acute bleeding will closely monitor pt if any bleeding, with lab, vital, tele, nurse around cross match, will transfusion plasma as needed lab monitor, vital, tele, nurse monitor pt (3) leukocytopenia WBC improved to 2.9 WBC is 2.4, is improved WBC is 1.8, still severe lower neuropenia precaution continue continue antibiotics pt's WBC is down to 1.7, she is status post chemotherapy Neuropenia precaution pt is on Zosyn now daily lab and vital monitor (4) Pancreatic cancer metastasized to liver Impression: pt has no home or apartment to go. discuss with social area manager to try to find replacement for pt to be D/C follow up consult of palliative care, pt choose no further active treatment, Will transition to hospice on discharge. Continued palliative, hold chemotherapy since pt has significant reverse reaction from chemotherapy continue palliative care, follow up palliative homemaking rehabilitation consultant Lauren discussed with pt and pt's family, pt is still no making the final hospice care decision yet. 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 A liver node biopsy performed on 12/27/16 confirmed adenocarcinoma. Plan: Continued palliative chemotherapy through Right chest port with gemcitabine and Abraxane IV per MAC. Oncology SITE DIRECTOR visited today to share plan of care, which is continued monitoring. Patient was supposed to begin another portion of chemo this week. They will keep us informed as to the next course of action expected. (5) Progressive focal motor weakness Impression: better, pt walk the hallway by her self weakness, continue PT/OT fall precaution This has been a progressive problem as evidence by increased falls with injury and debility. Plan: PT/OT consulted after acute illness and has now signed off. Non-skid foot wear should be worn and a bed/chair alarm at all times since patient continues to be impulsive and unaware of the likelihood of a subsequent fall. PT evaluation was ordered today to do a home safety evaluation. They noted that she is able to ambulate with only supervision, although she displays lack of awareness and judgment. At night patient has been exhibiting signs of "sundowning" which may lead to day time weakness. (6) Frequent falls Impression: continue current treatment. no fall reported closely monitor, fall precaution With injury to head, LUE and LLE injuries noted. Bruising noted to left knee and extend to ankle/foot that is improving each day. Patient remains impulsive and looses awareness of surroundings at times. Plan: Bed or chair alarm for safety. PT/OT consulted after acute illness. Patient should be reminded to wear non-skid socks and to call for help since she remains unaware of her risk of falls. PT completed a home safety evaluation and note that she has a good steady gait, but may need supervision if living alone. (7) Type II diabetes mellitus Impression: stable, continue slide scale, hypoglycemia protocol HgA1C was 7.6 on 04/20/17. Blood glucose on chemistry lab finding upon admit was over 400mg/dl. Suspect related to stress/illness. Blood sugars much improved today and were between 179-301. Plan: Sliding scale insulin ordered with POC blood glucose checks. Started long -acting insulin at 15U at hs, will increase to 25U for tonight. (8) Dementia associated with other underlying disease Impression: pt is actually more oriented today neuro check vital, lab monitor Patient has increased confusion, suspect Sundowning. Vitamin B12 level was elevated above 1300. Normal [place] level. (9) hypothyroidism resume levothyoxine (10) pneumonia pt at room air with 97% SO2, no cough, fever. pt's neutropenic status is improving. pt is on Zosyn for 8 days, will D/C antibiotics soon, as neutropenic more improve
[2017-04-28] MEDS: HYDROmorphone 0.5 MG/0.5 ML SYRINGE IVP PRN (15:55)
[2017-04-28] MEDS: CELECOXIB 100 MG CAPSULE PO SCH (17:27)
[2017-04-28] MEDS: INSULIN GLARGINE 300 UNIT/3 ML PEN SUBQ SCH (20:38)
[2017-04-29] MEDS: HALOPERIDOL 1 MG TABLET PO PRN (00:44)
[2017-04-29] MEDS: SODIUM CHLORIDE FLUSH 0.9% 10 ML SYRINGE IVP SCH ×3 (05:48→20:29)
[2017-04-29] MEDS: LEVOTHYROXINE 125 MCG TABLET PO SCH (05:49)
[2017-04-29] MEDS: SODIUM CHLORIDE FLUSH 0.9% 10 ML SYRINGE IVP PRN ×2 (05:49→17:21)
[2017-04-29 06:11] LABS: BASOPHILS % (AUTO) 0.5 %; EOSINOPHILS % (AUTO) 1.7 %; HCT - HEMATOCRIT 28.7 % (37.0-47.0); HGB - HEMOGLOBIN 9.5 g/dL (12.0-16.0); LYMPHOCYTES # (AUTO) 0.8 10^3/uL (1.5-3.5); LYMPHOCYTES % (AUTO) 28.5 %; MEAN CORPUSCULAR HEMOGLOBIN 31.8 pg (27.0-31.0); MEAN CORPUSCULAR HGB CONC 33.2 g/dL (32.0-36.0); MEAN CORPUSCULAR VOLUME 95.7 fL (81.0-99.0); MEAN PLATELET VOLUME 8.9 fL (7.9-10.8); MONOCYTES # (AUTO) 0.5 10^3/uL (0.0-1.0); MONOCYTES % (AUTO) 16.8 %; NEUTROPHILS # (AUTO) 1.4 10^3/uL (1.5-6.6); NEUTROPHILS % (AUTO) 52.5 %; NUCLEATED RED BLOOD CELLS AUTO 0.3 /100WBC; RED CELL DISTRIBUTION WIDTH 17.4 % (12.0-15.0); UNCORRECTED WHITE BLOOD COUNT 2.7 x10^3/uL; WHITE BLOOD COUNT 2.7 x10^3/uL (4.8-10.8)
[2017-04-29 06:24] LABS: ALBUMIN/GLOBULIN RATIO 0.7 (1.0-2.2); BILIRUBIN,TOTAL 0.3 mg/dL (0.2-1.0); CALCIUM 8.6 mg/dL (8.5-10.3); CREATININE 0.9 mg/dL (0.4-1.0); POTASSIUM 3.4 mmol/L (3.5-5.0); TOTAL PROTEIN 5.9 g/dL (6.7-8.2)
[2017-04-29] MEDS ORDERED: POTASSIUM CHLORIDE 20 MEQ TABLET PO SCH (08:00)
[2017-04-29] MEDS: BUDESONIDE 0.5 MG/2 ML NEB INH SCH ×2 (08:03→17:45)
[2017-04-29] MEDS: FORMOTEROL FUMARATE NEB 20 MCG/2 ML INH SCH ×2 (08:03→17:46)
[2017-04-29] MEDS: INSULIN ASPART 300 UNIT/3 ML PEN SUBQ SCH ×4 (08:10→20:29)
[2017-04-29] MEDS: FAMOTIDINE 20 MG TABLET PO SCH (08:23)
[2017-04-29] MEDS: clonazePAM 0.5 MG TABLET PO SCH ×2 (08:23→20:29)
[2017-04-29] MEDS: CITALOPRAM 10 MG TABLET PO SCH (08:23)
[2017-04-29] MEDS: oxyCODONE 5 MG TABLET PO PRN (10:35)
--- NOTE | 2017-04-29 12:28 | PROVIDER PROGRESS NOTE ---
Subjective - Prog Note Date Prog Note Date: 04/29/17 - Subjective Pt reports feeling: Improved Subjective: Pt state she feel good, no complains. pt state she has no home and she will go any replacement we could find for her Current Medications - Current Medications Current Medications: Active Medications Acetaminophen (Tylenol) 650 mg PO Q4HR PRN PRN Reason: Pain or Fever > 38C (100.4F) Last Admin: 04/23/17 01:33 Dose: 650 mg Albuterol/Ipratropium (Duoneb) 3 ml INH RTQ4H PRN PRN Reason: Wheezing Last Admin: 04/27/17 07:35 Dose: 3 ml Budesonide (Pulmicort) 0.5 mg INH RTBID [facility] Last Admin: 04/29/17 08:03 Dose: 0.5 mg Celecoxib (Celebrex) 200 mg PO DAILY@1700 [facility] Last Admin: 04/28/17 17:27 Dose: 200 mg Citalopram Hydrobromide (Celexa) 40 mg PO DAILY [facility] Last Admin: 04/29/17 08:23 Dose: 40 mg Clonazepam (Klonopin) 1 mg PO BID [facility] Last Admin: 04/29/17 08:23 Dose: 1 mg Famotidine (Pepcid) 20 mg PO DAILY [facility] Last Admin: 04/29/17 08:23 Dose: 20 mg Formoterol Fumarate (Perforomist) 20 mcg INH RTBID [facility] Last Admin: 04/29/17 08:03 Dose: 20 mcg Haloperidol (Haldol) 1 mg PO Q4H PRN PRN Reason: Agitation Last Admin: 04/29/17 00:44 Dose: 1 mg Heparin Sodium (Beef Lung) () 30 - 50 unit IVP ONCE PRN PRN Reason: Port Protocol (<24 hours) Stop: 05/25/17 03:21 Hydromorphone HCl (Dilaudid Inj Syringe) 0.5 mg IVP Q2H PRN PRN Reason: Pain 8 to 10 Last Admin: 04/28/17 15:55 Dose: 0.5 mg Insulin Aspart (Novolog) 3 - 11 unit SUBQ 0800,1200,1700,2100 [facility] PRN Reason: Protocol Last Admin: 04/29/17 11:57 Dose: Not Given Insulin Glargine (Lantus Solostar) 25 unit SUBQ QPM [facility] Last Admin: 04/28/17 20:38 Dose: 25 unit Levothyroxine Sodium (Synthroid) 125 mcg PO QDAC [facility] Last Admin: 04/29/17 05:49 Dose: 125 mcg Olanzapine (Zyprexa Odt) 10 mg TL DAILY PRN PRN Reason: Agitation Last Admin: 04/26/17 15:03 Dose: 10 mg Oxycodone HCl (Roxicodone) 5 mg PO Q4H PRN PRN Reason: PAIN Last Admin: 04/29/17 10:35 Dose: 5 mg Prochlorperazine Maleate (Compazine) 10 mg PO Q6H PRN PRN Reason: Nausea / Vomiting Sodium Chloride (Normal Saline Flush 0.9%) 10 ml IVP PRN PRN PRN Reason: NEEDED PER PROVIDER ORDERS Last Admin: 04/29/17 05:49 Dose: 20 ml Sodium Chloride (Normal Saline Flush 0.9%) 10 ml IVP Q8HR [facility] Last Admin: 04/29/17 05:48 Dose: 10 ml Temazepam (Restoril) 15 mg PO QPM PRN PRN Reason: Insomnia Last Admin: 04/25/17 21:50 Dose: 15 mg Rivaroxaban [Xarelto] 20 mg PO DAILY@1700 03/31/17 Zolpidem [Ambien] 5 mg PO QPM PRN 03/31/17 metFORMIN [Glucophage] 1,000 mg PO BIDWM 03/31/17 oxyCODONE [Roxicodone] 5 mg PO Q4H PRN 04/16/17 Celecoxib [CeleBREX] 200 mg PO DAILY@1700 04/19/17 Citalopram [CeleXA] 40 mg PO DAILY 04/19/17 Insulin Aspart [Novolog Flexpen] 2 - 9 units SUBQ DAILY 04/19/17 Insulin Degludec [Tresiba Flextouch U-100] 45 units SUBQ DAILY 04/19/17 Levothyroxine Sodium 125 mcg PO QDAC 04/19/17 Prochlorperazine [Compazine] 10 mg PO Q6H PRN 04/19/17 clonazePAM [Clonazepam] 1 mg PO BID 04/19/17 Objective - Vital Signs/Intake & Output Reviewed Vital Signs: Yes Vital Signs: Vital Signs x48h Temp Pulse Pulse Resp BP Pulse Ox 04/29/17 08:08 36.5 C 62 22 130/46 L 96 04/29/17 08:06 64 16 Intake & Output: Intake & Output 04/26/17 04/27/17 04/28/17 04/29/17 23:59 23:59 23:59 23:59 Intake Total 1578 3112.500 1940 592 Balance 1578 3112.500 1940 592 - Objective General Appearance: positive: No acute distress, Alert. negative: Lethargic Eyes Bilateral: positive: Normal inspection, PERRL, No lid inflammation, Conjunctivae nml ENT: positive: ENT inspection nml, Pharynx nml, No signs of dehydration. negative: Purulent nasal drainage, Pharyngeal erythema, Oral lesions, Dry mucous membranes Neck: positive: Nml inspection, Thyroid nml, No JVD, Trachea midline. negative : Thyromegaly, Lymphadenopathy (R), Lymphadenopathy (L), Stiff neck, Kernig's sign, Carotid bruit, Swelling/bruising, Tracheal deviation Respiratory: positive: Chest non-tender, No respiratory distress, Breath sounds nml. negative: Wheezes, Rales, Rhonchi Cardiovascular: positive: Regular rate & rhythm, No murmur, No gallop. negative : Irregularly irregular, Extrasystoles, Tachycardia, Bradycardia, Systolic murmur, Diastolic murmur Peripheral Pulses: 2+ Radial (R), 2+ Radial (L), 2+ Dorsalis pedis (R), 2+ Dorsalis pedis (L) Abdomen: positive: Non-tender, Nml bowel sounds, No distention. negative: Tenderness, Guarding, Rebound Back: positive: Nml inspection. negative: CVA tenderness (R), CVA tenderness (L ) Skin: positive: Color nml, No rash, Warm, Dry. negative: Cyanosis, Diaphoresis , Pallor, Skin rash Extremities: positive: Non-tender, Full ROM, Nml appearance. negative: Calf tenderness, Joint swelling, Chrystal's sign/cords Neurologic/Psychiatric: positive: Oriented x3, Motor nml, Sensation nml, Mood/ affect nml. negative: Sensory loss, Facial droop, Slurred/abnml speech, Depressed mood/affect - Lab Results Fish Bones: 04/29/17 05:47 04/29/17 05:47 Other Labs: Lab Results x24hrs 04/29/17 04/29/17 04/29/17 Range/Units 11:36 07:48 05:47 WBC (4.8-10.8) x10^3/uL RBC (4.20-5.40) 10^6/uL Hgb (12.0-16.0) g/dL Hct (37.0-47.0) % MCV (81.0-99.0) fL MCH (27.0-31.0) pg MCHC (32.0-36.0) g/dL RDW (12.0-15.0) % Plt Count (130-450) 10^3/uL MPV (7.9-10.8) fL Neut # (1.5-6.6) 10^3/uL Lymph # (1.5-3.5) 10^3/uL [place] # (0.0-1.0) 10^3/uL Eos # (0.0-0.7) 10^3/uL Baso # (0.0-0.1) 10^3/uL Absolute Nucleated RBC x10^3/uL Nucleated RBC % /100WBC Sodium 142 (135-145) mmol/L Potassium 3.4 L (3.5-5.0) mmol/L Chloride 107 (101-111) mmol/L Carbon Dioxide 27 (21-32) mmol/L Anion Gap 8.0 (6-13) BUN 9 (6-20) mg/dL Creatinine 0.9 (0.4-1.0) mg/dL Estimated GFR (MDRD) 63 L (>89) Glucose 70 (70-100) mg/dL POC Whole Bld Glucose 132 H 71 (70 - 100) mg/dL Calcium 8.6 (8.5-10.3) mg/dL Total Bilirubin 0.3 (0.2-1.0) mg/dL AST 44 H (10-42) IU/L ALT 23 (10-60) IU/L Alkaline Phosphatase 163 H (42-121) IU/L Total Protein 5.9 L (6.7-8.2) g/dL Albumin 2.4 L (3.2-5.5) g/dL Globulin 3.5 (2.1-4.2) g/dL Albumin/Globulin Ratio 0.7 L (1.0-2.2) 04/29/17 04/28/17 04/28/17 Range/Units 05:47 20:37 17:10 WBC 2.7 L (4.8-10.8) x10^3/uL RBC 3.00 L (4.20-5.40) 10^6/uL Hgb 9.5 L (12.0-16.0) g/dL Hct 28.7 L (37.0-47.0) % MCV 95.7 (81.0-99.0) fL MCH 31.8 H (27.0-31.0) pg MCHC 33.2 (32.0-36.0) g/dL RDW 17.4 H (12.0-15.0) % Plt Count 114 L (130-450) 10^3/uL MPV 8.9 (7.9-10.8) fL Neut # 1.4 L (1.5-6.6) 10^3/uL Lymph # 0.8 L (1.5-3.5) 10^3/uL [place] # 0.5 (0.0-1.0) 10^3/uL Eos # 0.0 (0.0-0.7) 10^3/uL Baso # 0.0 (0.0-0.1) 10^3/uL Absolute Nucleated RBC 0.01 x10^3/uL Nucleated RBC % 0.3 /100WBC Sodium (135-145) mmol/L Potassium (3.5-5.0) mmol/L Chloride (101-111) mmol/L Carbon Dioxide (21-32) mmol/L Anion Gap (6-13) BUN (6-20) mg/dL Creatinine (0.4-1.0) mg/dL Estimated GFR (MDRD) (>89) Glucose (70-100) mg/dL POC Whole Bld Glucose 152 H 200 H (70 - 100) mg/dL Calcium (8.5-10.3) mg/dL Total Bilirubin (0.2-1.0) mg/dL AST (10-42) IU/L ALT (10-60) IU/L Alkaline Phosphatase (42-121) IU/L Total Protein (6.7-8.2) g/dL Albumin (3.2-5.5) g/dL Globulin (2.1-4.2) g/dL Albumin/Globulin Ratio (1.0-2.2) Assessment/Plan - Problem List (1) Anemia Impression: (1) Impression: HGB 9.5, continue to improve wait for replacement may derive from her recently chemotherapy pt's HGB is 9 after transfusion of two units of blood continue to daily lab monitor vital check pt's HGB is down to 6.7, and dizziness. pt was ordered two units of blood continue lab monitor today pt's HGB is up slight to 7.2, and walked with nurse and tech. it seems pt is asymptomatic. pt is status post of chemotherapy will closely monitor CBC, transfusion of blood as needed today HGB 7, pt is asymptomatic, HR without changing, no SOB, no chest pain. Pt denies any acute GI bleeding, vomiting. pt had a chemotherapy 7 days ago, plus pt had stage 4 of pancreatic cancer. continue closely monitor pt's HGB and HCT, will transfuse of blood as clinical needed lab monitor, vital, tele monitor pt cross match ordered. (2) thrombocytopenia plt 114, improved plt is 44,000, continue to improve no bleeding reported continue closely monitor, daily lab plt is up to 36,000 after transfusion of plt will continue CBC monitor daily monitor any bleeding closely pt has mild nose bleeding cross and match for plt transfusion of one unit of plt will recheck lab, and follow up the result closely monitor pt if any bleeding today pt's plt is 15, significant lower, but pt denies any acute bleeding will closely monitor pt if any bleeding, with lab, vital, tele, nurse around cross match, will transfusion plasma as needed lab monitor, vital, tele, nurse monitor pt (3) leukocytopenia WBC stable, at 2.7 WBC is 2.4, is improved WBC is 1.8, still severe lower neuropenia precaution continue continue antibiotics pt's WBC is down to 1.7, she is status post chemotherapy Neuropenia precaution pt is on Zosyn now daily lab and vital monitor (4) Pancreatic cancer metastasized to liver Impression: pt has no home or apartment to go. discuss with social billiard parlor manager to try to find replacement for pt to be D/C follow up consult of palliative care, pt choose no further active treatment, Will transition to hospice on discharge. Continued palliative, hold chemotherapy since pt has significant reverse reaction from chemotherapy continue palliative care, follow up palliative weight loss sales consultant Lauren discussed with pt and pt's family, pt is still no making the final hospice care decision yet. 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 A liver node biopsy performed on 12/27/16 confirmed adenocarcinoma. Plan: Continued palliative chemotherapy through Right chest port with gemcitabine and Abraxane IV per MAC. Oncology [employer] DRIVER visited today to share plan of care, which is continued monitoring. Patient was supposed to begin another portion of chemo this week. They will keep us informed as to the next course of action expected. (5) Progressive focal motor weakness Impression: better, pt walk the hallway by her self weakness, continue PT/OT fall precaution This has been a progressive problem as evidence by increased falls with injury and debility. Plan: PT/OT consulted after acute illness and has now signed off. Non-skid foot wear should be worn and a bed/chair alarm at all times since patient continues to be impulsive and unaware of the likelihood of a subsequent fall. PT evaluation was ordered today to do a home safety evaluation. They noted that she is able to ambulate with only supervision, although she displays lack of awareness and judgment. At night patient has been exhibiting signs of "sundowning" which may lead to day time weakness. (6) Frequent falls Impression: continue current treatment. no fall reported closely monitor, fall precaution With injury to head, LUE and LLE injuries noted. Bruising noted to left knee and extend to ankle/foot that is improving each day. Patient remains impulsive and looses awareness of surroundings at times. Plan: Bed or chair alarm for safety. PT/OT consulted after acute illness. Patient should be reminded to wear non-skid socks and to call for help since she remains unaware of her risk of falls. PT completed a home safety evaluation and note that she has a good steady gait, but may need supervision if living alone. (7) Type II diabetes mellitus Impression: stable, continue slide scale, hypoglycemia protocol HgA1C was 7.6 on 04/20/17. Blood glucose on chemistry lab finding upon admit was over 400mg/dl. Suspect related to stress/illness. Blood sugars much improved today and were between 179-301. Plan: Sliding scale insulin ordered with POC blood glucose checks. Started long -acting insulin at 15U at hs, will increase to 25U for tonight. (8) Dementia associated with other underlying disease Impression: pt is actually more oriented today neuro check vital, lab monitor Patient has increased confusion, suspect Sundowning. Vitamin B12 level was elevated above 1300. Normal [place] level. (9) hypothyroidism resume levothyoxine, stable (10) pneumonia no fever, chill, SOB, dysuria. WBC is to 2.7 today D/C Zosyne closely daily lab monitor, vital monitor. pt at room air with 97% SO2, no cough, fever. pt's neutropenic status is improving. pt is on Zosyn for 8 days, will D/C antibiotics soon, as neutropenic more improve
[2017-04-29] MEDS: CELECOXIB 100 MG CAPSULE PO SCH (17:14)
[2017-04-29] MEDS: HYDROmorphone 0.5 MG/0.5 ML SYRINGE IVP PRN (17:21)
[2017-04-29] MEDS: TEMAZEPAM 15 MG CAPSULE PO PRN (20:29)
[2017-04-29] MEDS: INSULIN GLARGINE 300 UNIT/3 ML PEN SUBQ SCH (20:32)
[2017-04-30] MEDS: SODIUM CHLORIDE FLUSH 0.9% 10 ML SYRINGE IVP PRN ×3 (02:05→06:21)
[2017-04-30] MEDS: oxyCODONE 5 MG TABLET PO PRN ×2 (02:35→14:48)
[2017-04-30 05:51] LABS: BASOPHILS % (AUTO) 0.7 %; EOSINOPHILS # (AUTO) 0.1 10^3/uL (0.0-0.7); EOSINOPHILS % (AUTO) 2.7 %; HCT - HEMATOCRIT 30.8 % (37.0-47.0); HGB - HEMOGLOBIN 10.3 g/dL (12.0-16.0); LYMPHOCYTES # (AUTO) 0.9 10^3/uL (1.5-3.5); LYMPHOCYTES % (AUTO) 34.4 %; MEAN CORPUSCULAR HEMOGLOBIN 32.3 pg (27.0-31.0); MEAN CORPUSCULAR HGB CONC 33.4 g/dL (32.0-36.0); MEAN CORPUSCULAR VOLUME 96.8 fL (81.0-99.0); MEAN PLATELET VOLUME 8.6 fL (7.9-10.8); MONOCYTES # (AUTO) 0.5 10^3/uL (0.0-1.0); MONOCYTES % (AUTO) 19.7 %; NEUTROPHILS # (AUTO) 1.1 10^3/uL (1.5-6.6); NEUTROPHILS % (AUTO) 42.5 %; NUCLEATED RED BLOOD CELLS AUTO 0.1 /100WBC; RED BLOOD COUNT 3.18 10^6/uL (4.20-5.40); RED CELL DISTRIBUTION WIDTH 17.6 % (12.0-15.0); UNCORRECTED WHITE BLOOD COUNT 2.6 x10^3/uL; WHITE BLOOD COUNT 2.6 x10^3/uL (4.8-10.8)
[2017-04-30 05:59] LABS: ALBUMIN/GLOBULIN RATIO 0.7 (1.0-2.2); BILIRUBIN,TOTAL 0.4 mg/dL (0.2-1.0); CALCIUM 8.9 mg/dL (8.5-10.3); POTASSIUM 3.9 mmol/L (3.5-5.0); TOTAL PROTEIN 6.4 g/dL (6.7-8.2)
[2017-04-30] MEDS: SODIUM CHLORIDE FLUSH 0.9% 10 ML SYRINGE IVP SCH ×3 (06:20→17:21)
[2017-04-30] MEDS: LEVOTHYROXINE 125 MCG TABLET PO SCH (07:08)
[2017-04-30] MEDS: BUDESONIDE 0.5 MG/2 ML NEB INH SCH ×2 (07:55→19:20)
[2017-04-30] MEDS: FORMOTEROL FUMARATE NEB 20 MCG/2 ML INH SCH ×2 (07:55→19:20)
[2017-04-30] MEDS: INSULIN ASPART 300 UNIT/3 ML PEN SUBQ SCH ×4 (08:41→21:48)
[2017-04-30] MEDS: FAMOTIDINE 20 MG TABLET PO SCH (08:51)
[2017-04-30] MEDS: clonazePAM 0.5 MG TABLET PO SCH ×2 (08:51→21:47)
[2017-04-30] MEDS: CITALOPRAM 10 MG TABLET PO SCH (08:51)
--- NOTE | 2017-04-30 12:36 | PROVIDER PROGRESS NOTE ---
Subjective - Prog Note Date Prog Note Date: 04/30/17 - Subjective Pt reports feeling: Improved Subjective: pt denies any complains. she state she feel well. pt is waiting for replacement. Current Medications - Current Medications Current Medications: Active Medications Acetaminophen (Tylenol) 650 mg PO Q4HR PRN PRN Reason: Pain or Fever > 38C (100.4F) Last Admin: 04/23/17 01:33 Dose: 650 mg Albuterol/Ipratropium (Duoneb) 3 ml INH RTQ4H PRN PRN Reason: Wheezing Last Admin: 04/27/17 07:35 Dose: 3 ml Budesonide (Pulmicort) 0.5 mg INH RTBID [facility] Last Admin: 04/30/17 07:55 Dose: 0.5 mg Celecoxib (Celebrex) 200 mg PO DAILY@1700 [facility] Last Admin: 04/29/17 17:14 Dose: 200 mg Citalopram Hydrobromide (Celexa) 40 mg PO DAILY [facility] Last Admin: 04/30/17 08:51 Dose: 40 mg Clonazepam (Klonopin) 1 mg PO BID [facility] Last Admin: 04/30/17 08:51 Dose: 1 mg Famotidine (Pepcid) 20 mg PO DAILY [facility] Last Admin: 04/30/17 08:51 Dose: 20 mg Formoterol Fumarate (Perforomist) 20 mcg INH RTBID [facility] Last Admin: 04/30/17 07:55 Dose: 20 mcg Haloperidol (Haldol) 1 mg PO Q4H PRN PRN Reason: Agitation Last Admin: 04/29/17 00:44 Dose: 1 mg Heparin Sodium (Beef Lung) () 30 - 50 unit IVP ONCE PRN PRN Reason: Port Protocol (<24 hours) Stop: 05/25/17 03:21 Last Admin: 04/30/17 06:21 Dose: 30 unit Hydromorphone HCl (Dilaudid Inj Syringe) 0.5 mg IVP Q2H PRN PRN Reason: Pain 8 to 10 Last Admin: 04/29/17 17:21 Dose: 0.5 mg Insulin Aspart (Novolog) 3 - 11 unit SUBQ 0800,1200,1700,2100 [facility] PRN Reason: Protocol Last Admin: 04/30/17 12:04 Dose: 3 unit Insulin Glargine (Lantus Solostar) 25 unit SUBQ QPM [facility] Last Admin: 04/29/17 20:32 Dose: 25 unit Levothyroxine Sodium (Synthroid) 125 mcg PO QDAC [facility] Last Admin: 04/30/17 07:08 Dose: 125 mcg Olanzapine (Zyprexa Odt) 10 mg TL DAILY PRN PRN Reason: Agitation Last Admin: 04/26/17 15:03 Dose: 10 mg Oxycodone HCl (Roxicodone) 5 mg PO Q4H PRN PRN Reason: PAIN Last Admin: 04/30/17 02:35 Dose: 5 mg Prochlorperazine Maleate (Compazine) 10 mg PO Q6H PRN PRN Reason: Nausea / Vomiting Sodium Chloride (Normal Saline Flush 0.9%) 10 ml IVP PRN PRN PRN Reason: NEEDED PER PROVIDER ORDERS Last Admin: 04/30/17 06:21 Dose: 10 ml Sodium Chloride (Normal Saline Flush 0.9%) 10 ml IVP Q8HR [facility] Last Admin: 04/30/17 06:20 Dose: 10 ml Temazepam (Restoril) 15 mg PO QPM PRN PRN Reason: Insomnia Last Admin: 04/29/17 20:29 Dose: 15 mg Rivaroxaban [Xarelto] 20 mg PO DAILY@1700 03/31/17 Zolpidem [Ambien] 5 mg PO QPM PRN 03/31/17 metFORMIN [Glucophage] 1,000 mg PO BIDWM 03/31/17 oxyCODONE [Roxicodone] 5 mg PO Q4H PRN 04/16/17 Celecoxib [CeleBREX] 200 mg PO DAILY@1700 04/19/17 Citalopram [CeleXA] 40 mg PO DAILY 04/19/17 Insulin Aspart [Novolog Flexpen] 2 - 9 units SUBQ DAILY 04/19/17 Insulin Degludec [Tresiba Flextouch U-100] 45 units SUBQ DAILY 04/19/17 Levothyroxine Sodium 125 mcg PO QDAC 04/19/17 Prochlorperazine [Compazine] 10 mg PO Q6H PRN 04/19/17 clonazePAM [Clonazepam] 1 mg PO BID 04/19/17 Objective - Vital Signs/Intake & Output Vital Signs: Vital Signs x48h Temp Pulse Pulse Resp BP Pulse Ox 04/30/17 07:56 36.5 C 62 18 130/58 L 96 04/30/17 07:55 69 16 Intake & Output: Intake & Output 04/27/17 04/28/17 04/29/17 04/30/17 23:59 23:59 23:59 23:59 Intake Total 3112.500 1940 1428 120 Balance 3112.500 1940 1428 120 - Objective General Appearance: positive: No acute distress, Alert. negative: Lethargic Eyes Bilateral: positive: Normal inspection, PERRL, No lid inflammation, Conjunctivae nml ENT: positive: ENT inspection nml, Pharynx nml, No signs of dehydration. negative: Purulent nasal drainage, Pharyngeal erythema, Oral lesions Neck: positive: Nml inspection, Thyroid nml, No JVD, Trachea midline. negative : Thyromegaly, Lymphadenopathy (R), Lymphadenopathy (L), Stiff neck, Carotid bruit, Swelling/bruising, Tracheal deviation Respiratory: positive: Chest non-tender, No respiratory distress, Breath sounds nml. negative: Wheezes, Rales, Rhonchi Cardiovascular: positive: Regular rate & rhythm, No murmur, No gallop. negative : Irregularly irregular, Extrasystoles, Tachycardia, Bradycardia, Systolic murmur, Diastolic murmur Peripheral Pulses: 2+ Radial (R), 2+ Radial (L), 2+ Dorsalis pedis (R), 2+ Dorsalis pedis (L) Abdomen: positive: Non-tender, No organomegaly, Nml bowel sounds, No distention. negative: Tenderness, Guarding, Rebound Back: positive: Nml inspection. negative: CVA tenderness (R), CVA tenderness (L ) Skin: positive: Color nml, No rash, Warm, Dry. negative: Cyanosis, Diaphoresis , Pallor, Skin rash Extremities: positive: Non-tender, Full ROM, Nml appearance. negative: Calf tenderness, Joint swelling, Chrystal's sign/cords Neurologic/Psychiatric: positive: Motor nml, Sensation nml, Mood/affect nml. negative: Sensory loss, Facial droop, Slurred/abnml speech, Depressed mood/ affect - Lab Results Fish Bones: 04/30/17 05:36 04/30/17 05:36 Other Labs: Lab Results x24hrs 04/30/17 04/30/17 04/30/17 Range/Units 11:16 07:48 05:36 WBC (4.8-10.8) x10^3/uL RBC (4.20-5.40) 10^6/uL Hgb (12.0-16.0) g/dL Hct (37.0-47.0) % MCV (81.0-99.0) fL MCH (27.0-31.0) pg MCHC (32.0-36.0) g/dL RDW (12.0-15.0) % Plt Count (130-450) 10^3/uL MPV (7.9-10.8) fL Neut # (1.5-6.6) 10^3/uL Lymph # (1.5-3.5) 10^3/uL Posey # (0.0-1.0) 10^3/uL Eos # (0.0-0.7) 10^3/uL Baso # (0.0-0.1) 10^3/uL Absolute Nucleated RBC x10^3/uL Nucleated RBC % /100WBC Sodium 140 (135-145) mmol/L Potassium 3.9 (3.5-5.0) mmol/L Chloride 105 (101-111) mmol/L Carbon Dioxide 28 (21-32) mmol/L Anion Gap 7.0 (6-13) BUN 12 (6-20) mg/dL Creatinine 1.0 (0.4-1.0) mg/dL Estimated GFR (MDRD) 55 L (>89) Glucose 82 (70-100) mg/dL POC Whole Bld Glucose 149 H 81 (70 - 100) mg/dL Calcium 8.9 (8.5-10.3) mg/dL Total Bilirubin 0.4 (0.2-1.0) mg/dL AST 47 H (10-42) IU/L ALT 23 (10-60) IU/L Alkaline Phosphatase 168 H (42-121) IU/L Total Protein 6.4 L (6.7-8.2) g/dL Albumin 2.6 L (3.2-5.5) g/dL Globulin 3.8 (2.1-4.2) g/dL Albumin/Globulin Ratio 0.7 L (1.0-2.2) 04/30/17 04/29/17 04/29/17 Range/Units 05:36 20:26 16:43 WBC 2.6 L (4.8-10.8) x10^3/uL RBC 3.18 L (4.20-5.40) 10^6/uL Hgb 10.3 L (12.0-16.0) g/dL Hct 30.8 L (37.0-47.0) % MCV 96.8 (81.0-99.0) fL MCH 32.3 H (27.0-31.0) pg MCHC 33.4 (32.0-36.0) g/dL RDW 17.6 H (12.0-15.0) % Plt Count 174 (130-450) 10^3/uL MPV 8.6 (7.9-10.8) fL Neut # 1.1 L (1.5-6.6) 10^3/uL Lymph # 0.9 L (1.5-3.5) 10^3/uL Posey # 0.5 (0.0-1.0) 10^3/uL Eos # 0.1 (0.0-0.7) 10^3/uL Baso # 0.0 (0.0-0.1) 10^3/uL Absolute Nucleated RBC 0.00 x10^3/uL Nucleated RBC % 0.1 /100WBC Sodium (135-145) mmol/L Potassium (3.5-5.0) mmol/L Chloride (101-111) mmol/L Carbon Dioxide (21-32) mmol/L Anion Gap (6-13) BUN (6-20) mg/dL Creatinine (0.4-1.0) mg/dL Estimated GFR (MDRD) (>89) Glucose (70-100) mg/dL POC Whole Bld Glucose 287 H 239 H (70 - 100) mg/dL Calcium (8.5-10.3) mg/dL Total Bilirubin (0.2-1.0) mg/dL AST (10-42) IU/L ALT (10-60) IU/L Alkaline Phosphatase (42-121) IU/L Total Protein (6.7-8.2) g/dL Albumin (3.2-5.5) g/dL Globulin (2.1-4.2) g/dL Albumin/Globulin Ratio (1.0-2.2) Assessment/Plan - Problem List (1) Anemia Impression: Impression: HGB 10.3, continue to improve wait for replacement may derive from her recently chemotherapy pt's HGB is 9 after transfusion of two units of blood continue to daily lab monitor vital check pt's HGB is down to 6.7, and dizziness. pt was ordered two units of blood continue lab monitor today pt's HGB is up slight to 7.2, and walked with nurse and tech. it seems pt is asymptomatic. pt is status post of chemotherapy will closely monitor CBC, transfusion of blood as needed today HGB 7, pt is asymptomatic, HR without changing, no SOB, no chest pain. Pt denies any acute GI bleeding, vomiting. pt had a chemotherapy 7 days ago, plus pt had stage 4 of pancreatic cancer. continue closely monitor pt's HGB and HCT, will transfuse of blood as clinical needed lab monitor, vital, tele monitor pt cross match ordered. (2) thrombocytopenia plt 174 today, resolved plt is 44,000, continue to improve no bleeding reported continue closely monitor, daily lab plt is up to 36,000 after transfusion of plt will continue CBC monitor daily monitor any bleeding closely pt has mild nose bleeding cross and match for plt transfusion of one unit of plt will recheck lab, and follow up the result closely monitor pt if any bleeding today pt's plt is 15, significant lower, but pt denies any acute bleeding will closely monitor pt if any bleeding, with lab, vital, tele, nurse around cross match, will transfusion plasma as needed lab monitor, vital, tele, nurse monitor pt (3) leukocytopenia WBC stable, at 2.6 WBC is 2.4, is improved WBC is 1.8, still severe lower neuropenia precaution continue continue antibiotics pt's WBC is down to 1.7, she is status post chemotherapy Neuropenia precaution pt is on Zosyn now daily lab and vital monitor (4) Pancreatic cancer metastasized to liver Impression: pt state she will not seek more chemotherapy, look for replacement pt has no home or apartment to go. discuss with social qual field manager to try to find replacement for pt to be D/C follow up consult of palliative care, pt choose no further active treatment, Will transition to hospice on discharge. Continued palliative, hold chemotherapy since pt has significant reverse reaction from chemotherapy continue palliative care, follow up palliative franchise field consultant Lauren discussed with pt and pt's family, pt is still no making the final hospice care decision yet. 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 A liver node biopsy performed on 12/27/16 confirmed adenocarcinoma. Plan: Continued palliative chemotherapy through Right chest port with gemcitabine and Abraxane IV per MAC. Oncology [facility] visited today to share plan of care, which is continued monitoring. Patient was supposed to begin another portion of chemo this week. They will keep us informed as to the next course of action expected. (5) Progressive focal motor weakness Impression: better, pt walk the hallway by her self weakness, continue PT/OT fall precaution This has been a progressive problem as evidence by increased falls with injury and debility. Plan: PT/OT consulted after acute illness and has now signed off. Non-skid foot wear should be worn and a bed/chair alarm at all times since patient continues to be impulsive and unaware of the likelihood of a subsequent fall. PT evaluation was ordered today to do a home safety evaluation. They noted that she is able to ambulate with only supervision, although she displays lack of awareness and judgment. At night patient has been exhibiting signs of "sundowning" which may lead to day time weakness. (6) Frequent falls Impression: fall precaution continue current treatment. no fall reported closely monitor, fall precaution With injury to head, LUE and LLE injuries noted. Bruising noted to left knee and extend to ankle/foot that is improving each day. Patient remains impulsive and looses awareness of surroundings at times. Plan: Bed or chair alarm for safety. PT/OT consulted after acute illness. Patient should be reminded to wear non-skid socks and to call for help since she remains unaware of her risk of falls. PT completed a home safety evaluation and note that she has a good steady gait, but may need supervision if living alone. (7) Type II diabetes mellitus Impression: stable, continue slide scale, hypoglycemia protocol HgA1C was 7.6 on 04/20/17. Blood glucose on chemistry lab finding upon admit was over 400mg/dl. Suspect related to stress/illness. Blood sugars much improved today and were between 179-301. Plan: Sliding scale insulin ordered with POC blood glucose checks. Started long -acting insulin at 15U at hs, will increase to 25U for tonight. (8) Dementia associated with other underlying disease Impression: more oriented pt is actually more oriented today neuro check vital, lab monitor Patient has increased confusion, suspect Sundowning. Vitamin B12 level was elevated above 1300. Normal [place] level. (9) hypothyroidism stable, continue home levothyoxine, stable (10) pneumonia resolved. no fever, chill, cough, SOB, dysuria. Room air with SO2 96%. Lung sound unremarkable D/C Zosyne closely daily lab monitor, vital monitor.
[2017-04-30] MEDS: CELECOXIB 100 MG CAPSULE PO SCH (17:08)
[2017-04-30] MEDS: HYDROmorphone 0.5 MG/0.5 ML SYRINGE IVP PRN (17:10)
[2017-04-30] MEDS: INSULIN GLARGINE 300 UNIT/3 ML PEN SUBQ SCH (21:47)
[2017-05-01] MEDS: SODIUM CHLORIDE FLUSH 0.9% 10 ML SYRINGE IVP PRN ×2 (05:51→05:52)
[2017-05-01] MEDS: SODIUM CHLORIDE FLUSH 0.9% 10 ML SYRINGE IVP SCH ×3 (05:51→20:11)
[2017-05-01 06:10] LABS: BASOPHILS % (AUTO) 0.8 %; EOSINOPHILS # (AUTO) 0.1 10^3/uL (0.0-0.7); EOSINOPHILS % (AUTO) 3.6 %; HCT - HEMATOCRIT 30.8 % (37.0-47.0); HGB - HEMOGLOBIN 10.1 g/dL (12.0-16.0); LYMPHOCYTES # (AUTO) 0.9 10^3/uL (1.5-3.5); LYMPHOCYTES % (AUTO) 31.8 %; MEAN CORPUSCULAR HEMOGLOBIN 31.7 pg (27.0-31.0); MEAN CORPUSCULAR HGB CONC 32.9 g/dL (32.0-36.0); MEAN CORPUSCULAR VOLUME 96.4 fL (81.0-99.0); MEAN PLATELET VOLUME 8.4 fL (7.9-10.8); MONOCYTES # (AUTO) 0.6 10^3/uL (0.0-1.0); MONOCYTES % (AUTO) 23.9 %; NEUTROPHILS # (AUTO) 1.1 10^3/uL (1.5-6.6); NEUTROPHILS % (AUTO) 39.9 %; RED BLOOD COUNT 3.19 10^6/uL (4.20-5.40); RED CELL DISTRIBUTION WIDTH 17.5 % (12.0-15.0); UNCORRECTED WHITE BLOOD COUNT 2.7 x10^3/uL; WHITE BLOOD COUNT 2.7 x10^3/uL (4.8-10.8)
[2017-05-01 06:22] LABS: ALBUMIN/GLOBULIN RATIO 0.7 (1.0-2.2); BILIRUBIN,TOTAL 0.6 mg/dL (0.2-1.0); CREATININE 0.9 mg/dL (0.4-1.0); POTASSIUM 4.1 mmol/L (3.5-5.0); TOTAL PROTEIN 6.1 g/dL (6.7-8.2)
[2017-05-01 06:34] LABS: PLATELET ESTIMATE, MANUAL NORMAL (130-450,000) (NORMAL); PLATELET MORPHOLOGY NORMAL APPEARANCE (NORMAL)
[2017-05-01] MEDS: LEVOTHYROXINE 125 MCG TABLET PO SCH (06:58)
[2017-05-01] MEDS: IPRATROPIUM/ALBUTEROL 3 ML NEB INH PRN ×2 (07:36→17:57)
[2017-05-01] MEDS: FORMOTEROL FUMARATE NEB 20 MCG/2 ML INH SCH ×2 (07:36→17:57)
[2017-05-01] MEDS: BUDESONIDE 0.5 MG/2 ML NEB INH SCH ×2 (07:36→17:57)
[2017-05-01] MEDS: FAMOTIDINE 20 MG TABLET PO SCH (08:50)
[2017-05-01] MEDS: clonazePAM 0.5 MG TABLET PO SCH ×2 (08:50→20:03)
[2017-05-01] MEDS: CITALOPRAM 10 MG TABLET PO SCH (08:50)
[2017-05-01] MEDS: INSULIN ASPART 300 UNIT/3 ML PEN SUBQ SCH ×4 (12:02→20:08)
[2017-05-01] MEDS: oxyCODONE 5 MG TABLET PO PRN ×2 (14:13→19:45)
--- NOTE | 2017-05-01 14:49 | PROVIDER PROGRESS NOTE ---
Subjective - Prog Note Date Prog Note Date: 05/01/17 Prog Note Time: 14:48 - Subjective Pt reports feeling: No change Subjective: Mary was tearful when talking about her hopeless situation and offers no other complaints. She denies SOB, chest pain, N/V or a new cough. Current Medications - Current Medications Current Medications: Active Medications Generic Name Dose Route Start Last Admin Trade Name Freq PRN Reason Stop Dose Admin Acetaminophen 650 mg 04/19/17 19:59 04/23/17 01:33 Tylenol PO 650 mg Q4HR PRN Administration Pain or Fever > 38C (100.4F) Albuterol/Ipratropium 3 ml 04/20/17 19:00 05/01/17 07:36 Duoneb INH 3 ml RTQ4H PRN Administration Wheezing Budesonide 0.5 mg 04/20/17 09:00 05/01/17 07:36 Pulmicort INH 0.5 mg RTBID [facility] Administration Celecoxib 200 mg 04/19/17 17:00 04/30/17 17:08 Celebrex PO 200 mg DAILY@1700 [facility] Administration Citalopram Hydrobromide 40 mg 04/20/17 09:00 05/01/17 08:50 Celexa PO 40 mg DAILY [facility] Administration Clonazepam 1 mg 04/19/17 14:00 05/01/17 08:50 Klonopin PO 1 mg BID [facility] Administration Famotidine 20 mg 04/19/17 12:00 05/01/17 08:50 Pepcid PO 20 mg DAILY [facility] Administration Formoterol Fumarate 20 mcg 04/20/17 09:00 05/01/17 07:36 Perforomist INH 20 mcg RTBID [facility] Administration Haloperidol 1 mg 04/23/17 17:36 04/29/17 00:44 Haldol PO 1 mg Q4H PRN Administration Agitation Heparin Sodium (Beef Lung) 30 - 50 unit 04/25/17 03:20 05/01/17 05:52 IVP 05/25/17 03:21 30 unit ONCE PRN Administration Port Protocol (<24 hours) Hydromorphone HCl 0.5 mg 04/19/17 11:49 04/30/17 17:10 Dilaudid Inj Syringe IVP 0.5 mg Q2H PRN Administration Pain 8 to 10 Insulin Aspart 3 - 11 unit 04/20/17 21:00 05/01/17 12:03 Novolog SUBQ 7 unit 0800,1200,1700,2100 [facility] Administration Protocol Insulin Glargine 25 unit 04/23/17 21:00 04/30/17 21:47 Lantus Solostar SUBQ 25 unit QPM [facility] Administration Levothyroxine Sodium 125 mcg 04/24/17 07:30 05/01/17 06:58 Synthroid PO 125 mcg QDAC [facility] Administration Olanzapine 10 mg 04/19/17 13:34 04/26/17 15:03 Zyprexa Odt TL 10 mg DAILY PRN Administration Agitation Oxycodone HCl 5 mg 04/19/17 13:34 05/01/17 14:13 Roxicodone PO 5 mg Q4H PRN Administration PAIN Prochlorperazine Maleate 10 mg 04/19/17 13:34 Compazine PO Q6H PRN Nausea / Vomiting Sodium Chloride 10 ml 04/19/17 11:49 05/01/17 05:52 Normal Saline Flush 0.9% IVP 10 ml PRN PRN Administration NEEDED PER PROVIDER ORDERS Sodium Chloride 10 ml 04/19/17 14:00 05/01/17 14:23 Normal Saline Flush 0.9% IVP Not Given Q8HR [facility] Temazepam 15 mg 04/19/17 11:49 04/29/17 20:29 Restoril PO 15 mg QPM PRN Administration Insomnia Rivaroxaban [Xarelto] 20 mg PO DAILY@1700 03/31/17 Zolpidem [Ambien] 5 mg PO QPM PRN 03/31/17 metFORMIN [Glucophage] 1,000 mg PO BIDWM 03/31/17 oxyCODONE [Roxicodone] 5 mg PO Q4H PRN 04/16/17 Celecoxib [CeleBREX] 200 mg PO DAILY@1700 04/19/17 Citalopram [CeleXA] 40 mg PO DAILY 04/19/17 Insulin Aspart [Novolog Flexpen] 2 - 9 units SUBQ DAILY 04/19/17 Insulin Degludec [Tresiba Flextouch U-100] 45 units SUBQ DAILY 04/19/17 Levothyroxine Sodium 125 mcg PO QDAC 04/19/17 Prochlorperazine [Compazine] 10 mg PO Q6H PRN 04/19/17 clonazePAM [Clonazepam] 1 mg PO BID 04/19/17 Objective - Vital Signs/Intake & Output Reviewed Vital Signs: Yes Vital Signs: Vital Signs x48h Temp Pulse Pulse Resp BP Pulse Ox 05/01/17 14:00 36.6 C 70 18 150/72 H 98 05/01/17 07:36 62 14 Intake & Output: Intake & Output 04/28/17 04/29/17 04/30/17 05/01/17 23:59 23:59 23:59 23:59 Intake Total 1939 1428 1100 950 Balance 1939 1428 1100 950 - Objective General Appearance: positive: No acute distress, Alert Eyes Bilateral: positive: Normal inspection ENT: positive: ENT inspection nml, Pharynx nml, No signs of dehydration Neck: positive: Nml inspection, Thyroid nml, No JVD, Trachea midline Respiratory: positive: Chest non-tender, No respiratory distress, Wheezes Cardiovascular: positive: Regular rate & rhythm, No gallop Peripheral Pulses: 1+ Radial (R), 1+ Radial (L) Abdomen: positive: Non-tender, Nml bowel sounds, Hepatomegaly Back: positive: Nml inspection Skin: positive: Color nml, No rash, Warm, Dry Extremities: positive: Non-tender, Full ROM, Nml appearance, Pedal edema Neurologic/Psychiatric: positive: Motor nml, Sensation nml, Disoriented to time , Depressed mood/affect - Lab Results Fish Bones: 05/01/17 05:45 05/01/17 05:45 Other Labs: Lab Results x24hrs 05/01/17 05/01/17 05/01/17 Range/Units 11:30 07:28 05:45 WBC (4.8-10.8) x10^3/uL RBC (4.20-5.40) 10^6/uL Hgb (12.0-16.0) g/dL Hct (37.0-47.0) % MCV (81.0-99.0) fL MCH (27.0-31.0) pg MCHC (32.0-36.0) g/dL RDW (12.0-15.0) % Plt Count (130-450) 10^3/uL MPV (7.9-10.8) fL Neut # (1.5-6.6) 10^3/uL Lymph # (1.5-3.5) 10^3/uL Mcculloch # (0.0-1.0) 10^3/uL Eos # (0.0-0.7) 10^3/uL Baso # (0.0-0.1) 10^3/uL Absolute Nucleated RBC x10^3/uL Nucleated RBC % /100WBC Manual Slide Review Platelet Estimate (NORMAL) Platelet Morphology (NORMAL) RBC Morph Micro Appear (NORMAL) Sodium 140 (135-145) mmol/L Potassium 4.1 (3.5-5.0) mmol/L Chloride 103 (101-111) mmol/L Carbon Dioxide 27 (21-32) mmol/L Anion Gap 10.0 (6-13) BUN 12 (6-20) mg/dL Creatinine 0.9 (0.4-1.0) mg/dL Estimated GFR (MDRD) 63 L (>89) Glucose 110 H (70-100) mg/dL POC Whole Bld Glucose 242 H 96 (70 - 100) mg/dL Calcium 9.0 (8.5-10.3) mg/dL Total Bilirubin 0.6 (0.2-1.0) mg/dL AST 46 H (10-42) IU/L ALT 22 (10-60) IU/L Alkaline Phosphatase 159 H (42-121) IU/L Total Protein 6.1 L (6.7-8.2) g/dL Albumin 2.6 L (3.2-5.5) g/dL Globulin 3.5 (2.1-4.2) g/dL Albumin/Globulin Ratio 0.7 L (1.0-2.2) 05/01/17 04/30/17 04/30/17 Range/Units 05:45 20:51 16:28 WBC 2.7 L (4.8-10.8) x10^3/uL RBC 3.19 L (4.20-5.40) 10^6/uL Hgb 10.1 L (12.0-16.0) g/dL Hct 30.8 L (37.0-47.0) % MCV 96.4 (81.0-99.0) fL MCH 31.7 H (27.0-31.0) pg MCHC 32.9 (32.0-36.0) g/dL RDW 17.5 H (12.0-15.0) % Plt Count 226 (130-450) 10^3/uL MPV 8.4 (7.9-10.8) fL Neut # 1.1 L (1.5-6.6) 10^3/uL Lymph # 0.9 L (1.5-3.5) 10^3/uL Mcculloch # 0.6 (0.0-1.0) 10^3/uL Eos # 0.1 (0.0-0.7) 10^3/uL Baso # 0.0 (0.0-0.1) 10^3/uL Absolute Nucleated RBC 0.00 x10^3/uL Nucleated RBC % 0.0 /100WBC Manual Slide Review Indicated Platelet Estimate NORMAL (130-450,000) (NORMAL) Platelet Morphology NORMAL APPEARANCE (NORMAL) RBC Morph Micro Appear NORMAL APPEARANCE (NORMAL) Sodium (135-145) mmol/L Potassium (3.5-5.0) mmol/L Chloride (101-111) mmol/L Carbon Dioxide (21-32) mmol/L Anion Gap (6-13) BUN (6-20) mg/dL Creatinine (0.4-1.0) mg/dL Estimated GFR (MDRD) (>89) Glucose (70-100) mg/dL POC Whole Bld Glucose 187 H 154 H (70 - 100) mg/dL Calcium (8.5-10.3) mg/dL Total Bilirubin (0.2-1.0) mg/dL AST (10-42) IU/L ALT (10-60) IU/L Alkaline Phosphatase (42-121) IU/L Total Protein (6.7-8.2) g/dL Albumin (3.2-5.5) g/dL Globulin (2.1-4.2) g/dL Albumin/Globulin Ratio (1.0-2.2) - Diagnostic Imaging Diagnostic Imaging Results: positive: Final report reviewed Assessment/Plan - Problem List (1) Pancreatic cancer metastasized to liver Impression: Per Dr Alexi MD Oncology: 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 A liver node biopsy performed on 12/27/16 confirmed adenocarcinoma. Plan: Continued palliative chemotherapy through Right chest port with gemcitabine and Abraxane IV per MAC, although has been on hold for now. Oncology [facility] [facility] has been checking in to share plan of care, which is continued monitoring. Patient was supposed to begin another portion of chemo last week, which continues to be on hold. They will keep us informed as to the next course of action expected. (2) Progressive focal motor weakness Impression: This has been a progressive problem as evidence by increased falls with injury and debility. Plan: PT/OT consulted after acute illness and has now signed off. Non-skid foot wear should be worn and a bed/chair alarm at all times since patient continues to be impulsive and unaware of the likelihood of a subsequent fall. PT evaluation was ordered today to do a home safety evaluation. They noted that she is able to ambulate with only supervision, although she displays lack of awareness and judgment. At night patient has been exhibiting signs of "sundowning" which may lead to day time weakness. (3) Frequent falls Impression: With injury to head, LUE and LLE injuries noted. Bruising noted to left knee and extend to ankle/foot that is improving each day. Patient remains impulsive at times and looses awareness of surroundings at times. Sister Sneha expresses that she still worries about being her sole rn coronary care unit due to the advanced CA. Plan: Bed or chair alarm for safety. PT/OT consulted after acute illness. Patient should be reminded to wear non-skid socks and to call for help since she remains unaware of her risk of falls. PT completed a home safety evaluation and note that she has a good steady gait, but may need supervision if living alone. (4) Type II diabetes mellitus Impression: HgA1C was 7.6 on 04/20/17. Blood glucose on chemistry lab finding upon admit was over 400mg/dl. Suspect related to stress/illness. Blood sugars much improved today and were between 110-284. Plan: Sliding scale insulin ordered with POC blood glucose checks. Continue long-acting insulin at 30U at hs. Qualifiers: Diabetes mellitus complication status: with ophthalmic complications Diabetes mellitus macular edema: with macular edema Diabetes mellitus terminal worker insulin use: with alf use Laterality: bilateral (5) Dementia associated with other underlying disease Impression: Patient has increased confusion, suspect Sundowning. Vitamin B12 level was elevated above 1300. Normal [place] level. Plan: lemuel Harrisrex and temazepam can be used for sleep. (6) Clinical depression Impression: Patient was noted to be quite tearful and admits to be going through alot of changes lately. Plan: Start SSRI as indicated for clinical depression related to end-of-life distress.
[2017-05-01] MEDS: CELECOXIB 100 MG CAPSULE PO SCH (17:08)
[2017-05-01] MEDS: INSULIN GLARGINE 300 UNIT/3 ML PEN SUBQ SCH (20:09)
[2017-05-02] MEDS ORDERED: INSULIN GLARGINE 300 UNIT/3 ML PEN SUBQ SCH (00:29)
[2017-05-02] MEDS: oxyCODONE 5 MG TABLET PO PRN ×2 (04:23→13:29)
[2017-05-02] MEDS: LEVOTHYROXINE 125 MCG TABLET PO SCH (06:15)
[2017-05-02] MEDS: IPRATROPIUM/ALBUTEROL 3 ML NEB INH PRN (07:12)
[2017-05-02] MEDS: BUDESONIDE 0.5 MG/2 ML NEB INH SCH ×2 (07:12→20:13)
[2017-05-02] MEDS: FORMOTEROL FUMARATE NEB 20 MCG/2 ML INH SCH ×2 (07:12→20:13)
[2017-05-02] MEDS: INSULIN ASPART 300 UNIT/3 ML PEN SUBQ SCH ×4 (07:30→21:12)
[2017-05-02] MEDS: FAMOTIDINE 20 MG TABLET PO SCH (08:59)
[2017-05-02] MEDS: CITALOPRAM 10 MG TABLET PO SCH (08:59)
[2017-05-02] MEDS: clonazePAM 0.5 MG TABLET PO SCH ×2 (08:59→21:04)
[2017-05-02] MEDS ORDERED: OLANZapine ODT 5 MG TABLET TL SCH (09:00)
[2017-05-02] MEDS: SODIUM CHLORIDE FLUSH 0.9% 10 ML SYRINGE IVP PRN (11:06)
[2017-05-02] MEDS: SODIUM CHLORIDE FLUSH 0.9% 10 ML SYRINGE IVP SCH ×2 (11:09→13:28)
--- NOTE | 2017-05-02 14:11 | PROVIDER PROGRESS NOTE ---
Subjective - Prog Note Date Prog Note Date: 05/02/17 Prog Note Time: 14:07 - Subjective Pt reports feeling: No change Subjective: Mary complains about being stuck here at the hospital. She expresses the need to be out in the open space outside. She denies SOB, chest pain, N/V or a new cough. Current Medications - Current Medications Current Medications: Active Medications Acetaminophen (Tylenol) 650 mg PO Q4HR PRN PRN Reason: Pain or Fever > 38C (100.4F) Last Admin: 04/23/17 01:33 Dose: 650 mg Albuterol/Ipratropium (Duoneb) 3 ml INH RTQ4H PRN PRN Reason: Wheezing Last Admin: 05/02/17 07:12 Dose: 3 ml Budesonide (Pulmicort) 0.5 mg INH RTBID [facility] Last Admin: 05/02/17 20:13 Dose: 0.5 mg Celecoxib (Celebrex) 200 mg PO DAILY@1700 [facility] Last Admin: 05/02/17 17:41 Dose: 200 mg Citalopram Hydrobromide (Celexa) 40 mg PO DAILY [facility] Last Admin: 05/02/17 08:59 Dose: 40 mg Clonazepam (Klonopin) 1 mg PO BID [facility] Last Admin: 05/02/17 21:04 Dose: 1 mg Famotidine (Pepcid) 20 mg PO DAILY [facility] Last Admin: 05/02/17 08:59 Dose: 20 mg Formoterol Fumarate (Perforomist) 20 mcg INH RTBID [facility] Last Admin: 05/02/17 20:13 Dose: 20 mcg Haloperidol (Haldol) 1 mg PO Q4H PRN PRN Reason: Agitation Last Admin: 04/29/17 00:44 Dose: 1 mg Heparin Sodium (Beef Lung) () 50 unit IVP 0615,1415,2215 [facility] Last Admin: 05/02/17 21:27 Dose: Not Given Heparin Sodium (Beef Lung) () 300 - 500 unit IVP ONCE PRN PRN Reason: Port Protocol (>24 hours) Stop: 06/01/17 21:18 Last Admin: 05/02/17 21:19 Dose: 300 unit Insulin Aspart (Novolog) 3 - 11 unit SUBQ 0800,1200,1700,2100 [facility] PRN Reason: Protocol Last Admin: 05/02/17 21:12 Dose: 7 unit Insulin Aspart (Novolog) 5 unit SUBQ TIDWM [facility] Insulin Glargine (Lantus Solostar) 30 unit SUBQ QPM [facility] Last Admin: 05/02/17 21:13 Dose: 30 unit Levothyroxine Sodium (Synthroid) 250 mcg PO QDAC [facility] Last Admin: 05/02/17 06:15 Dose: 250 mcg Olanzapine (Zyprexa Odt) 10 mg TL DAILY [facility] Oxycodone HCl (Roxicodone) 5 mg PO Q4H PRN PRN Reason: PAIN Last Admin: 05/02/17 13:29 Dose: 5 mg Prochlorperazine Maleate (Compazine) 10 mg PO Q6H PRN PRN Reason: Nausea / Vomiting Temazepam (Restoril) 15 mg PO QPM PRN PRN Reason: Insomnia Last Admin: 04/29/17 20:29 Dose: 15 mg Rivaroxaban [Xarelto] 20 mg PO DAILY@1700 03/31/17 Zolpidem [Ambien] 5 mg PO QPM PRN 03/31/17 metFORMIN [Glucophage] 1,000 mg PO BIDWM 03/31/17 oxyCODONE [Roxicodone] 5 mg PO Q4H PRN 04/16/17 Celecoxib [CeleBREX] 200 mg PO DAILY@1700 04/19/17 Citalopram [CeleXA] 40 mg PO DAILY 04/19/17 Insulin Aspart [Novolog Flexpen] 2 - 9 units SUBQ DAILY 04/19/17 Insulin Degludec [Tresiba Flextouch U-100] 45 units SUBQ DAILY 04/19/17 Levothyroxine Sodium 125 mcg PO QDAC 04/19/17 Prochlorperazine [Compazine] 10 mg PO Q6H PRN 04/19/17 clonazePAM [Clonazepam] 1 mg PO BID 04/19/17 Objective - Vital Signs/Intake & Output Reviewed Vital Signs: Yes Vital Signs: Vital Signs x48h Temp Pulse Pulse Resp BP Pulse Ox 05/02/17 07:49 36.4 C L 62 16 147/64 H 97 05/02/17 07:12 64 16 Intake & Output: Intake & Output 04/29/17 04/30/17 05/01/1722/17 23:59 23:59 23:59 23:59 Intake Total 1428 1100 1190 1120 Balance 1428 1100 1190 1120 - Objective General Appearance: positive: Alert, Mild distress, Anxious Eyes Bilateral: positive: Normal inspection ENT: positive: ENT inspection nml, Pharynx nml, No signs of dehydration Neck: positive: Nml inspection, Thyroid nml, No JVD, Trachea midline Respiratory: positive: Chest non-tender, No respiratory distress, Rhonchi ( crackles in bilateral low bases.) Cardiovascular: positive: Regular rate & rhythm, No gallop, Systolic murmur Peripheral Pulses: 1+ Radial (R), 1+ Radial (L) Abdomen: positive: Non-tender, Guarding, Hepatomegaly Back: positive: Nml inspection Skin: positive: Color nml, No rash, Warm, Dry, Pallor Extremities: positive: Non-tender, Full ROM, Nml appearance, Pedal edema Neurologic/Psychiatric: positive: Disoriented to time, Weakness, Sensory loss, Depressed mood/affect, Other (tearful) Reflexes: Bicep (R): 3+, Bicep (L): 3+ - Lab Results Fish Bones: 05/01/17 05:45 05/01/17 05:45 Other Labs: Lab Results x24hrs 05/02/17 05/02/17 05/01/17 Range/Units 10:59 07:12 20:07 POC Whole Bld Glucose 275 H 122 H 284 H (70 - 100) mg/dL 05/01/17 Range/Units 16:56 POC Whole Bld Glucose 298 H (70 - 100) mg/dL - Diagnostic Imaging Diagnostic Imaging Results: positive: Final report reviewed Assessment/Plan - Problem List (1) Pancreatic cancer metastasized to liver Impression: Per Dr Alexi MD Oncology: 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 A liver node biopsy performed on 12/27/16 confirmed adenocarcinoma. Plan: Continued palliative chemotherapy through Right chest port with gemcitabine and Abraxane IV per [facility], although has been on hold for now. Oncology CURB SUPERVISOR has been checking in to share plan of care, which is continued monitoring. Patient was supposed to begin another portion of chemo last week, which continues to be on hold. They will keep us informed as to the next course of action expected. (2) Progressive focal motor weakness Impression: This has been a progressive problem as evidence by increased falls with injury and debility. Plan: PT/OT consulted after acute illness and has now signed off. Non-skid foot wear should be worn and a bed/chair alarm at all times since patient continues to be impulsive and unaware of the likelihood of a subsequent fall. PT evaluation was ordered today to do a home safety evaluation. They noted that she is able to ambulate with only supervision, although she displays lack of awareness and judgment. At night patient has been exhibiting signs of "sundowning" which may lead to day time weakness. (3) Frequent falls Impression: With injury to head, LUE and LLE injuries noted. Bruising noted to left knee and extend to ankle/foot that is improving each day. Patient remains impulsive at times and looses awareness of surroundings at times. Sister Sneha expresses that she still worries about being her sole customer care associate due to the advanced CA. Plan: Bed or chair alarm for safety. PT/OT consulted after acute illness. Patient should be reminded to wear non-skid socks and to call for help since she remains unaware of her risk of falls. PT completed a home safety evaluation and note that she has a good steady gait, but may need supervision if living alone. (4) Type II diabetes mellitus Impression: HgA1C was 7.6 on 04/20/17. Day time blood sugars have been 200-300 or greater. Plan: Scheduled ASpart 5U TIDWM, and we will monitor labs. Qualifiers: Diabetes mellitus complication status: with ophthalmic complications Diabetes mellitus macular edema: with macular edema Diabetes mellitus milk wagon driver insulin use: with nursing home use Laterality: bilateral (5) Dementia associated with other underlying disease Impression: Patient has increased confusion, suspect Sundowning that has been noted as somewhat improved. Vitamin B12 level was elevated above 1300. Normal [place] level. Patient was found in the gift shop, wandering. She is very matter of fact when it comes to her wishes in regards to leaving for lunch off campus and going home with sisterSneha despite the lack of plans or resources. Continues to have difficulty with understanding concepts. Long-term port access needle has now been discontinued in the case of elopement for the safety of the public and patient's own well-being. Will need to have labs drawn via venipuncture if needed. Plan: Haldol, zyprex-now scheduled and temazepam can be used for sleep. Familiar staff with continuity of care is essential. (6) Clinical depression Impression: Patient was noted to be quite tearful and admits to be going through alot of changes lately. No suicidal ideation when questioned. Ongoing conversations at bedside with [id number] quality listening time spent. Plan: Depression related to end-of-life distress and uncertainty of living arrangements. SSRI is contraindicated to be added to her already plentiful medication schedule, so Zyprexa is now scheduled at hs to promote rest. This may lead to more happiness during the day with less risk for elopement.
[2017-05-02] MEDS: CELECOXIB 100 MG CAPSULE PO SCH (17:41)
[2017-05-02] MEDS: SODIUM CHLORIDE FLUSH 0.9% 10 ML SYRINGE IVP ONE ×2 (21:06→21:20)
[2017-05-03] MEDS: TEMAZEPAM 15 MG CAPSULE PO PRN (00:30)
--- NOTE | 2017-05-03 07:02 | PROVIDER PROGRESS NOTE ---
Subjective - Prog Note Date Prog Note Date: 05/03/17 Prog Note Time: 07:02 - Subjective Pt reports feeling: No change Subjective: Mary has plans to "get herself signed out tomorrow AM". She admits to a good nights sleep after taking the scheduled Zyprexa. She denies SOB, chest pain, N/ V or a new cough. Current Medications - Current Medications Current Medications: Active Medications Acetaminophen (Tylenol) 650 mg PO Q4HR PRN PRN Reason: Pain or Fever > 38C (100.4F) Last Admin: 04/23/17 01:33 Dose: 650 mg Albuterol/Ipratropium (Duoneb) 3 ml INH RTQ4H PRN PRN Reason: Wheezing Last Admin: 05/02/17 07:12 Dose: 3 ml Budesonide (Pulmicort) 0.5 mg INH RTBID [facility] Last Admin: 05/02/17 20:13 Dose: 0.5 mg Celecoxib (Celebrex) 200 mg PO DAILY@1700 [facility] Last Admin: 05/02/17 17:41 Dose: 200 mg Citalopram Hydrobromide (Celexa) 40 mg PO DAILY [facility] Last Admin: 05/02/17 08:59 Dose: 40 mg Clonazepam (Klonopin) 1 mg PO BID [facility] Last Admin: 05/02/17 21:04 Dose: 1 mg Famotidine (Pepcid) 20 mg PO DAILY [facility] Last Admin: 05/02/17 08:59 Dose: 20 mg Formoterol Fumarate (Perforomist) 20 mcg INH RTBID [facility] Last Admin: 05/02/17 20:13 Dose: 20 mcg Haloperidol (Haldol) 1 mg PO Q4H PRN PRN Reason: Agitation Last Admin: 04/29/17 00:44 Dose: 1 mg Heparin Sodium (Beef Lung) () 50 unit IVP 0615,1415,2215 [facility] Last Admin: 05/03/17 05:38 Dose: Not Given Heparin Sodium (Beef Lung) () 300 - 500 unit IVP ONCE PRN PRN Reason: Port Protocol (>24 hours) Stop: 06/01/17 21:18 Last Admin: 05/02/17 21:19 Dose: 300 unit Insulin Aspart (Novolog) 3 - 11 unit SUBQ 0800,1200,1700,2100 [facility] PRN Reason: Protocol Last Admin: 05/02/17 21:12 Dose: 7 unit Insulin Aspart (Novolog) 5 unit SUBQ TIDWM [facility] Insulin Glargine (Lantus Solostar) 30 unit SUBQ QPM [facility] Last Admin: 05/02/17 21:13 Dose: 30 unit Levothyroxine Sodium (Synthroid) 250 mcg PO QDAC [facility] Last Admin: 05/02/17 06:15 Dose: 250 mcg Olanzapine (Zyprexa Odt) 10 mg TL DAILY [facility] Oxycodone HCl (Roxicodone) 5 mg PO Q4H PRN PRN Reason: PAIN Last Admin: 05/02/17 13:29 Dose: 5 mg Prochlorperazine Maleate (Compazine) 10 mg PO Q6H PRN PRN Reason: Nausea / Vomiting Temazepam (Restoril) 15 mg PO QPM PRN PRN Reason: Insomnia Last Admin: 05/03/17 00:30 Dose: 15 mg Rivaroxaban [Xarelto] 20 mg PO DAILY@1700 03/31/17 Zolpidem [Ambien] 5 mg PO QPM PRN 03/31/17 metFORMIN [Glucophage] 1,000 mg PO BIDWM 03/31/17 oxyCODONE [Roxicodone] 5 mg PO Q4H PRN 04/16/17 Celecoxib [CeleBREX] 200 mg PO DAILY@1700 04/19/17 Citalopram [CeleXA] 40 mg PO DAILY 04/19/17 Insulin Aspart [Novolog Flexpen] 2 - 9 units SUBQ DAILY 04/19/17 Insulin Degludec [Tresiba Flextouch U-100] 45 units SUBQ DAILY 04/19/17 Levothyroxine Sodium 125 mcg PO QDAC 04/19/17 Prochlorperazine [Compazine] 10 mg PO Q6H PRN 04/19/17 clonazePAM [Clonazepam] 1 mg PO BID 04/19/17 Objective - Vital Signs/Intake & Output Reviewed Vital Signs: Yes Vital Signs: Vital Signs x48h Temp Pulse Resp BP Pulse Ox 05/03/17 01:34 36.6 C 66 16 147/63 H 96 Intake & Output: Intake & Output 04/30/17 05/01/17 05/02/17 05/03/17 23:59 23:59 23:59 23:59 Intake Total 1100 1190 1470 400 Balance 1100 1190 1470 400 - Objective General Appearance: positive: No acute distress, Alert, Mild distress Eyes Bilateral: positive: Normal inspection ENT: positive: ENT inspection nml, Pharynx nml, No signs of dehydration Neck: positive: Nml inspection, Thyroid nml, No JVD, Trachea midline - Lab Results Fish Bones: 05/01/17 05:45 05/01/17 05:45 Other Labs: Lab Results x24hrs 05/02/17 05/02/17 05/02/17 Range/Units 20:34 16:30 10:59 POC Whole Bld Glucose 259 H 135 H 275 H (70 - 100) mg/dL 05/02/17 Range/Units 07:12 POC Whole Bld Glucose 122 H (70 - 100) mg/dL Assessment/Plan - Problem List (1) Pancreatic cancer metastasized to liver Impression: Per Dr Alexi MD Oncology: 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 A liver node biopsy performed on 12/27/16 confirmed adenocarcinoma. Plan: Continued palliative chemotherapy through Right chest port with gemcitabine and Abraxane IV per [facility], although has been on hold for now. Port-a- cath access device discontinued for infection prevention due to lack of use. Oncology PULP PRESS TENDER has been checking in to share plan of care, which is continued monitoring. Patient was supposed to begin another portion of chemo last week, which continues to be on hold. They will keep us informed as to the next course of action expected. (2) Progressive focal motor weakness Impression: This has been a progressive problem as evidence by increased falls with injury and debility. Patient maintains good stamina in light of debilitating illness. Plan: PT/OT consulted after acute illness and has now signed off. Non-skid foot wear should be worn and a bed/chair alarm at all times since patient continues to be impulsive and unaware of the likelihood of a subsequent fall. PT evaluation was ordered today to do a home safety evaluation. They noted that she is able to ambulate with only supervision, although she displays lack of awareness and judgment. At night patient has been exhibiting signs of "sundowning" which may lead to day time weakness. (3) Frequent falls Impression: With injury to head, LUE and LLE injuries noted. Bruising noted to left knee and extend to ankle/foot that is improving each day. Patient remains impulsive at times and looses awareness of surroundings at times. Sister Sneha expresses that she still worries about being her sole senior care assistant due to the advanced CA. Plan: Bed or chair alarm for safety. PT/OT consulted after acute illness. Patient should be reminded to wear non-skid socks and to call for help since she remains unaware of her risk of falls. PT completed a home safety evaluation and note that she has a good steady gait, but may need supervision if living alone. (4) Type II diabetes mellitus Impression: HgA1C was 7.6 on 04/20/17. Day time blood sugars have been 200-300 or greater. Plan: Scheduled ASpart 5U TIDWM was added yesterday. Plan to resume metformin at discharge, and we will monitor labs weekly. Qualifiers: Diabetes mellitus complication status: with ophthalmic complications Diabetes mellitus macular edema: with macular edema Diabetes mellitus health care assistant insulin use: with [facility] use Laterality: bilateral (5) Dementia associated with other underlying disease Impression: Patient has increased confusion, suspect owning that has been noted as somewhat improved. Vitamin B12 level was elevated above 1300. Normal [place] level. Patient was found in the gift shop, wandering. She is very matter of fact when it comes to her wishes in regards to leaving for lunch off campus and going home with sisterSneha despite the lack of plans or resources. Continues to have difficulty with understanding concepts. Long-term port access needle has now been discontinued in the case of elopement for the safety of the public and patient's own well-being. Will need to have labs drawn via venipuncture if needed. Plan: Haldol, zyprex-now scheduled and temazepam can be used for sleep. Familiar staff with continuity of care is essential. (6) Clinical depression Impression: Patient was noted to be quite tearful and admits to be going through alot of changes lately. No suicidal ideation when questioned. Ongoing conversations at bedside with [id number] quality listening time spent. Plan: Depression related to end-of-life distress and uncertainty of living arrangements. SSRI is contraindicated to be added to her already plentiful medication schedule, so Zyprexa is now scheduled at hs to promote rest. This may lead to more happiness during the day with less risk for elopement.
[2017-05-03] MEDS: LEVOTHYROXINE 125 MCG TABLET PO SCH (07:46)
[2017-05-03] MEDS: INSULIN ASPART 300 UNIT/3 ML PEN SUBQ SCH ×4 (08:54→11:48)
[2017-05-03] MEDS: clonazePAM 0.5 MG TABLET PO SCH (08:55)
[2017-05-03] MEDS: FAMOTIDINE 20 MG TABLET PO SCH (08:55)
[2017-05-03] MEDS: CITALOPRAM 10 MG TABLET PO SCH (08:55)
[2017-05-03] MEDS ORDERED: fentaNYL 12 MCG PATCH TOP SCH (09:00)
--- NOTE | 2017-05-03 11:47 | Discharge Plan ---
Discharge Plan Disposition: Home, Self Care Condition: Good Prescriptions: [id number] 12 MCG PATCH [Duragesic 12mcg patch] 1 patch TOP Q3D #10 patch Levothyroxine [Synthroid] 250 mcg PO QDAC #30 tablet OLANZapine ODT [Zyprexa Odt] 10 mg TL DAILY #30 tablet Diet: Regular Activity Restrictions: Activity as Tolerated Driving Restrictions: Yes (Absolutely NO driving due to delayed response time, judgement,medications) Assistance Devices: Cane Weight Bearing: Full Weight Instruction Topics: Anemia Ch, Diabetes Type 2 Coping, Cancer Pancreatic Additional Instructions or Follow Up instructions: You came to the emergency department 14 days ago on 04/19/17 after you became extremely confused per reports from your sister, Sneha. She witnessed you attempting to put your pant leg over your head like a shirt and attempting to tie your pant legs like shoe laces. You were also falling all of the time. You have stage 4 (there are 4 stages, stage 1 is the best) metastatic pancreatic cancer which means that it has potential to go to any organ of your body. You are fortunately set up with the oncology clinic ([facility]), which we recommend to continue appointments for them to help you decide about further treatment. Palliative care is also all set up with [facility], who would love to continue helping you. Please see Dr. Isacc Obregon in the next few days as a follow up to this hospitalization and to make sure your medications are going well. Take all of your medications as prescribed. Please come to the ED if you fall because your blood levels are improving, but still not back to normal. DO NOT drive under any circumstance. Driving is not recommended due to decreased judgment, a newly prescribed narcotic patch, and your potential slow reaction times that lawful driving entails. It was great working with you and Sneha. No Smoking: If you smoke, Please STOP! Call for help. Follow-up with: Isacc Obregon MD [Primary Care Provider] -
[2017-05-03] MEDS: oxyCODONE 5 MG TABLET PO PRN (13:19)
[2017-05-03] MEDS: FORMOTEROL FUMARATE NEB 20 MCG/2 ML INH SCH (13:30)
[2017-05-03] MEDS: IPRATROPIUM/ALBUTEROL 3 ML NEB INH PRN (13:30)
[2017-05-03] MEDS: BUDESONIDE 0.5 MG/2 ML NEB INH SCH (13:30)
[2017-05-03 15:39] VITALS: BP 142/58
--- NOTE | 2017-05-03 15:43 | DISCHARGE SUMMARY ---
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 A liver node biopsy performed on 12/27/16 confirmed adenocarcinoma. Plan: Continued palliative chemotherapy through Right chest port with gemcitabine and Abraxane IV per [facility], although has been on hold for now. Port-a- cath access device discontinued for infection prevention due to lack of use. Oncology REPAIR OPERATOR has been checking in to share plan of care, which is continued monitoring. Patient was supposed to begin another portion of chemo last week, which continues to be on hold. They will keep us informed as to the next course of action expected. (2) Progressive focal motor weakness Impression: This has been a progressive problem as evidence by increased falls with injury and debility. Patient maintains good stamina in light of debilitating illness. Plan: PT/OT consulted after acute illness and has now signed off. Non-skid foot wear should be worn and a bed/chair alarm at all times since patient continues to be impulsive and unaware of the likelihood of a subsequent fall. PT evaluation was ordered today to do a home safety evaluation. They noted that she is able to ambulate with only supervision, although she displays lack of awareness and judgment. At night patient has been exhibiting signs of "sundowning" which may lead to day time weakness. (3) Frequent falls Impression: With injury to head, LUE and LLE injuries noted. Bruising noted to left knee and extend to ankle/foot that is improving each day. Patient remains impulsive at times and looses awareness of surroundings at times. 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 Plan: Bed or chair alarm for safety. PT/OT consulted after acute illness. Patient should be reminded to wear non-skid socks and to call for help since she remains unaware of her risk of falls. PT completed a home safety evaluation and note that she has a good steady gait, but may need supervision if living alone. (4) Type II diabetes mellitus Impression: HgA1C was 7.6 on 04/20/17. Day time blood sugars have been 200-300 or greater. Plan: Scheduled ASpart 5U TIDWM was added yesterday. Plan to resume metformin at discharge, and we will monitor labs weekly. Qualifiers: Diabetes mellitus complication status: with ophthalmic complications Diabetes mellitus macular edema: with macular edema Diabetes mellitus lobsterman insulin use: with longterm use Laterality: bilateral (5) Dementia associated with other underlying disease Impression: Patient has increased confusion, suspect ing that has been noted as somewhat improved. Vitamin B12 level was elevated above 1300. Normal [place] level. Patient was found in the gift shop, wandering. She is very matter of fact when it comes to her wishes in regards to leaving for lunch off campus and going home with sisterSneha despite the lack of plans or resources. Continues to have difficulty with understanding concepts. Long-term port access needle has now been discontinued in the case of elopement for the safety of the public and patient's own well-being. Will need to have labs drawn via venipuncture if needed. Plan: Haldol, zyprex-now scheduled and temazepam can be used for sleep. Familiar staff with continuity of care is essential. - HPI History of Present Illness: Fatimah Zamudio) is a 67-year-old female with history of metastatic pancreatic cancer-stage 4, DVTs, COPD, DM type-2 insulin dependent, who presents with progressive weakness and acute delerium, that has become worse for the past 2 days. According to sisterCheli, patient has been falling, and on 04/16/17 was evaluated in the emergency department after a fall. CT scan of the head and cervical spine were negative for acute injury. She was prescribed Augmentin at that time for sinusitis. Cheli also notes that her sister has had such profound confusion and was found trying to put her pants on over her head this morning, and then trying to tie her pant legs instead of her shoelaces. Her pancreatic cancer was diagnosed while living in [place]. She has been undergoing chemotherapy, and her last chemotherapy was administered 2 days ago. Since arriving in [place] she has been seeing Dr. Truong in the [facility] clinic. She is scheduled for her first primary care appointment on May [address] Obregon to establish care. She denies headache, chest pain, N/V, dizziness when asked, but very unreliable due to inattentiveness. Per sister, Cheli her sister has been complaining of chills , cough, and nausea, with urinary incontinence for the past 2 days. She has recently filled out DNR paperwork while in [facility] clinic and is on palliative care with Lauren Townsend. She will be admitted to the hospitalist service for further evaluation of acute delerium, possible pneumonia and palliative care planning with placement. - HOSPITAL COURSE Hospital Course: Fatimah had an eventful stay with multiple medical problems to deal with when she first came to the hospital including; pneumonia, confusions, unstable balance and high risk for falls, fluctuating mental status, confusion, hallucinations, and delusions up until 04/23. She had anemia, likely from recent chemotherapy as per [facility] clinic requiring PRBCs, low platelets requiring platelet transfusion, - ALLERGIES Allergies/Adverse Reactions: Allergies Allergy/AdvReac Type Severity Reaction Status Date / Time Sulfa (Sulfonamide Allergy Unknown Verified 04/16/17 10:41 Antibiotics) - MEDICATIONS Home Medications: Ambulatory Orders Medication Instructions Recorded Confirmed Acetaminophen [Tylenol] 650 mg PO Q4HR PRN tablet 05/03/17 Celecoxib [CeleBREX] 200 mg PO DAILY@1700 #0 05/03/17 04/19/17 Citalopram [CeleXA] 40 mg PO DAILY #30 05/03/17 04/19/17 Insulin Degludec [Tresiba 45 units SUBQ DAILY #1 05/03/17 04/19/17 Flextouch U-100] Levothyroxine [Synthroid] 250 mcg PO QDAC #30 tablet 05/03/17 OLANZapine ODT [Zyprexa Odt] 10 mg TL DAILY #30 tablet 05/03/17 Prochlorperazine [Compazine] 10 mg PO Q6H PRN #30 05/03/17 04/19/17 clonazePAM [Clonazepam] 1 mg PO BID #30 05/03/17 04/19/17 fentaNYL 12 MCG PATCH [Duragesic 1 patch TOP Q3D #10 patch 05/03/17 12mcg patch] metFORMIN [Glucophage] 1,000 mg PO BIDWM #30 05/03/17 04/19/17 oxyCODONE [Roxicodone] 5 mg PO Q4H PRN #30 05/03/17 04/19/17 - PHYSICAL EXAM AT DISCHARGE General Appearance: positive: No acute distress, Alert Eyes Bilateral: positive: Normal inspection, PERRL ENT: positive: ENT inspection nml, Pharynx nml, No signs of dehydration, Other ( balding) Neck: positive: Nml inspection, Thyroid nml, No JVD, Trachea midline Respiratory: positive: Chest non-tender, No respiratory distress, Breath sounds nml Cardiovascular: positive: Regular rate & rhythm, No murmur, No gallop Peripheral Pulses: positive: 2+ Abdomen: positive: Non-tender, Nml bowel sounds, Hepatomegaly Back: positive: Nml inspection Skin: positive: Color nml, No rash, Warm, Dry Extremities: positive: Non-tender, Full ROM, Nml appearance, No pedal edema, Joint swelling Neurologic/Psychiatric: positive: Oriented x3 (baseline dementia, forgetful, lack of judgement), CN's nml (2-12), Motor nml, Sensation nml, Mood/affect nml, Sensory loss Reflexes: Bicep (R): 3+, Bicep (L): 3+ - LABS Result Diagrams: 05/01/17 05:45 05/01/17 05:45 - DIAGNOSTIC IMAGING Diagnostic Imaging Results: Final report reviewed - FOLLOW UP Follow Up: You came to the emergency department 14 days ago on 04/19/17 after you became extremely confused per reports from your sister, Sneha. She witnessed you attempting to put your pant leg over your head like a shirt and attempting to tie your pant legs like shoe laces. You were also falling all of the time. You have stage 4 (there are 4 stages, stage 1 is the best) metastatic pancreatic cancer which means that it has potential to go to any organ of your body. You are fortunately set up with the oncology clinic ([facility]), which we recommend to continue appointments for them to help you decide about further treatment. Palliative care is also all set up with OLGA Escoto, who would love to continue helping you. Please see Dr. Isacc Obregon in the next few days as a follow up to this hospitalization and to make sure your medications are going well. Take all of your medications as prescribed. Please come to the ED if you fall because your blood levels are improving, but still not back to normal. DO NOT drive under any circumstance. Driving is not recommended due to decreased judgment, a newly prescribed narcotic patch, and your potential slow reaction times that lawful driving entails. - TIME SPENT Time Spent in Discharge (Minutes): 90
[2017-05-03] MEDS ORDERED: OLANZapine ODT 5 MG TABLET TL SCH (21:00)
== END 2017-05-03 15:58 | disposition home or self-care (01) | DRG 884 ==
LOC: ED 08:46 → MS2 11:49
PROVIDERS: ADMIT Nurse Practitioner; ATTEND Nurse Practitioner
PROC: 30243N1 Transfusion of Nonautologous Red Blood Cells into Central Vein, Percutaneous Approach (ICD-10-PCS; principal; 2017-04-26)
DX: R41.0 Disorientation, unspecified (principal); C25.9 Malignant neoplasm of pancreas, unspecified; F03.91 Unspecified dementia, unspecified severity, with behavioral disturbance; N30.01 Acute cystitis with hematuria; E87.1 Hypo-osmolality and hyponatremia; D64.9 Anemia, unspecified; J32.9 Chronic sinusitis, unspecified; E11.9 Type 2 diabetes mellitus without complications; J44.9 Chronic obstructive pulmonary disease, unspecified; J18.9 Pneumonia, unspecified organism; D61.810 Antineoplastic chemotherapy induced pancytopenia; C25.2 Malignant neoplasm of tail of pancreas; C78.7 Secondary malignant neoplasm of liver and intrahepatic bile duct; C77.9 Secondary and unspecified malignant neoplasm of lymph node, unspecified; F05 Delirium due to known physiological condition; J44.0 Chronic obstructive pulmonary disease with (acute) lower respiratory infection; C78.02 Secondary malignant neoplasm of left lung; C78.01 Secondary malignant neoplasm of right lung; T45.1X5A Adverse effect of antineoplastic and immunosuppressive drugs, initial encounter; E11.65 Type 2 diabetes mellitus with hyperglycemia; E11.311 Type 2 diabetes mellitus with unspecified diabetic retinopathy with macular edema; E11.42 Type 2 diabetes mellitus with diabetic polyneuropathy; J32.3 Chronic sphenoidal sinusitis; S40.022D Contusion of left upper arm, subsequent encounter; S80.02XD Contusion of left knee, subsequent encounter; S80.12XD Contusion of left lower leg, subsequent encounter; S90.02XD Contusion of left ankle, subsequent encounter; G89.3 Neoplasm related pain (acute) (chronic); F32.9 Major depressive disorder, single episode, unspecified; F41.9 Anxiety disorder, unspecified; E03.9 Hypothyroidism, unspecified; M79.7 Fibromyalgia; Z66 Do not resuscitate; Z51.5 Encounter for palliative care; Z96.659 Presence of unspecified artificial knee joint; Z79.891 Long term (current) use of opiate analgesic; Z95.828 Presence of other vascular implants and grafts; Z91.81 History of falling; Z87.442 Personal history of urinary calculi; Z79.84 Long term (current) use of oral hypoglycemic drugs; Z79.4 Long term (current) use of insulin; Z86.718 Personal history of other venous thrombosis and embolism; Z79.899 Other long term (current) drug therapy; Z87.891 Personal history of nicotine dependence; Z79.01 Long term (current) use of anticoagulants; Z59.0 Homelessness; Z87.828 Personal history of other (healed) physical injury and trauma; Z91.83 Wandering in diseases classified elsewhere
CPT/HCPCS: 36415; 70553; 71020; 80048; 80053; 81001; 81003; 82140; 82270; 82607; 83036; 83605; 83690; 83735; 83880; 84075; 84080; 84100; 84443; 85025; 86850; 86900; 86901; 86920; 87040; 87086; 93005; 94640; 96361; 96365; 99232; 99233; 99284; 99285

== ENCOUNTER 2017-06-13 13:02 | Outpatient (CLI) | payer MEDICARE, OTHER | END 2017-06-13 13:03 | disposition EMS.NT | LOC: EMS 13:02 | PROVIDERS: ATTEND Surgery | DX: Z03.89 Encounter for observation for other suspected diseases and conditions ruled out (principal) ==

== ENCOUNTER 2017-06-16 13:22 | Emergency (ER) | payer MEDICARE, OTHER ==
--- NOTE | 2017-06-16 13:33 | ED Physician Documentation ---
PD HPI HEAD INJURY - Stated complaint Stated Complaint: GLF - Chief complaint Chief Complaint: Trauma Hd/Nk - History obtained from History obtained from: Patient, EMS - History of Present Illness Mechanism of head injury: Other (67-year-old woman in hospice care for pancreatic cancer falls frequently. 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 HEENT: Cataracts - Present Medications Home Medications: Ambulatory Orders Medication Instructions Recorded Confirmed Acetaminophen [Tylenol] 650 mg PO Q4HR PRN tablet 05/03/17 05/07/17 Celecoxib [CeleBREX] 200 mg PO DAILY@1700 #0 05/03/17 05/07/17 Citalopram [CeleXA] 40 mg PO DAILY #30 05/03/17 05/07/17 Insulin Degludec [Tresiba 45 units SUBQ DAILY #1 05/03/17 05/07/17 Flextouch U-100] Levothyroxine [Synthroid] 250 mcg PO QDAC #30 tablet 05/03/17 05/07/17 Prochlorperazine [Compazine] 10 mg PO Q6H PRN #30 05/03/17 05/07/17 clonazePAM [Clonazepam] 1 mg PO BID #30 05/03/17 05/07/17 metFORMIN [Glucophage] 1,000 mg PO BIDWM #30 05/03/17 05/07/17 oxyCODONE [Roxicodone] 5 mg PO Q4H PRN #30 05/03/17 05/07/17 fentaNYL 12 MCG PATCH [Duragesic 1 patch TD Q3D 05/07/17 05/07/17 12mcg patch] OLANZapine ODT [Zyprexa Odt] 5 mg SL DAILY 05/14/17 05/14/17 - Allergies Allergies/Adverse Reactions: Allergies Allergy/AdvReac Type Severity Reaction Status Date / Time Sulfa (Sulfonamide Allergy Unknown Verified 04/16/17 10:41 Antibiotics) - Social History Does the pt smoke?: No Smoking Status: Former smoker Does the pt drink ETOH?: No Does the pt have substance abuse?: No - Immunizations Immunizations are current?: Yes - POLST Patient has POLST: Yes PD ED PE NORMAL - Vitals Vital signs reviewed: Yes - General General: Other (She is alert but slightly delirious. 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 Prior to this the art director, Dr. Kenny called me and felt that this was not in her best interest and asked me not to order any any imaging. Just to fix her head laceration and discharge her. They have been having a lot of trouble with frequent falls with her and she is well into the hospice process. Departure - Departure Disposition: 01 Home, Self Care Clinical Impression: Frequent falls, Confusion Accidental fall Qualifiers: Encounter type: initial encounter Qualified Code(s): W19.XXXA - Unspecified fall, initial encounter Malignant neoplasm of pancreas Qualifiers: Pancreatic malignancy location: unspecified Qualified Code(s): C25.9 - Malignant neoplasm of pancreas, unspecified Scalp laceration Qualifiers: Encounter type: initial encounter Qualified Code(s): S01.01XA - Laceration without foreign body of scalp, initial encounter Condition: Good Record reviewed to determine appropriate education?: Yes Instructions: ED Laceration Scalp Stitch Or Stap Comments: Come back for any signs of infection which would include: Redness, swelling, drainage, increased pain, or fevers. Have Dr. Kenny or 1 of the hospice nurses take out the leroy in about 10 days.
[2017-06-16] MEDS ORDERED: fentaNYL 100 MCG/2 ML VIAL IVP STA (13:41)
[2017-06-16] MEDS ORDERED: BUFFERED LIDOCAINE 10 ML SYRINGE SUBQ STA (13:41)
[2017-06-16 16:10] VITALS: BP 139/74
== END 2017-06-16 14:45 | disposition home or self-care (01) ==
LOC: EDUNIT# → ED 13:22
DX: R41.0 Disorientation, unspecified (principal); C25.9 Malignant neoplasm of pancreas, unspecified; S01.01XA Laceration without foreign body of scalp, initial encounter; W01.198A Fall on same level from slipping, tripping and stumbling with subsequent striking against other object, initial encounter; Z91.81 History of falling; M25.461 Effusion, right knee; E11.42 Type 2 diabetes mellitus with diabetic polyneuropathy; Z79.4 Long term (current) use of insulin; Z96.659 Presence of unspecified artificial knee joint; Z87.891 Personal history of nicotine dependence
CPT/HCPCS: 12002; 96374; 99283